=== PATIENT | female | born 1940 | race Caucasian/White ===

== ENCOUNTER → 2016-06-17 | Day surgery (SDC) | payer MEDICARE, BC ==
[~2016-06-17] MED LIST: Buffered Lidocaine 1% SYR 3ML* 3 ML/SYR SYRINGE INTRADERM ONE; Buffered Lidocaine 1% SYR 3ML* 3 ML/SYR SYRINGE ONE; Cyclopentolate 1% OPTH.SOL* 2 ML BTL ONE; Flurbiprofen 0.03% OPTH.SOL* 2.5 ML BTL ONE; Lidocaine 1% MPF* 2 ML VIAL ONE; Lidocaine 2% EPI 1:200000 MPF* 20 ML VIAL ONE; Lidocaine 2% PF * 5 ML VIAL ONE; Midazolam* 1 MG/ML 2 ML VIAL (2 MG) ONE; Neomycin/Polymy/Dex OPTH.SUSP* MAXITROL 0.1% 5 ML ONE; Phenylephrine 2.5% OPTH.SOL* 2 ML BTL ONE; Povidone Iodine 5% OPTH* 30 ML BTL ONE; Proparacaine 0.5% OPHTH.SOL* 15 ML BTL ONE; Propofol* 10 MG/ML 20 ML BTL IV PUSH ONE; acetaZOLAMIDE TAB* 250 MG ONE
[2016-06-17 12:44] VITALS: BP 172/75
--- NOTE | 2016-06-17 14:46 | OP ---
DATE OF OPERATION: 06/17/2016. DATE OF : 1940. SURGEON: Melvin Arita M.D. PREOPERATIVE DIAGNOSIS: Cataract left eye. POSTOPERATIVE DIAGNOSIS: Cataract left eye. OPERATIVE PROCEDURE: Phacoemulsification left eye with IOL. PROCEDURE: The patient was brought to the operating room after being given 1/2% Alcaine with epinep hrine drops in the preoperative area. The eye was prepped and draped in the usual sterile fashion. Sterile drape and eyelid speculum were placed. Again, topical 1/2% Alcaine with epinephrine was gi luis m. A paracentesis incision was made at the 3 o'clock position with the No.75 blade. Clear cornea incision 2.2 x 2.2-mm was created at the 6 o'clock position starting at the anterior limbus using t he 2.2-mm keratome. The anterior chamber was irrigated with 0.4 mL of 1% non-preservative intracame ral lidocaine and filled with DisCoVisc. A capsulorrhexis was completed using the cystotome and the Utrata forceps. Hydrodissection was performed with balanced salt solution. The lens nucleus was re moved with the Phacoemulsification handpiece without incident. Cortex was removed with the irrigati on-aspiration handpiece. The capsular bag was re-inflated using DisCoVisc and an SN60WF 22.5 implan t was inserted with the shooter. The irrigation-aspiration handpiece was used to remove all residua l DisCoVisc. The eye was refilled with balanced salt solution and the wound checked and found to be watertight. Topical Maxitrol drops were given. [id number]/[facility] #: [id number]
== END | disposition home or self-care (01) ==
LOC: OREAST 08:40
PROVIDERS: ATTEND Specialist
DX: H25.12 Age-related nuclear cataract, left eye (principal); H50.21 Vertical strabismus, right eye; I10 Essential (primary) hypertension; E03.9 Hypothyroidism, unspecified; E66.01 Morbid (severe) obesity due to excess calories; Z68.31 Body mass index [BMI] 31.0-31.9, adult
CPT/HCPCS: A9270-GY; J2250; J2704; V2632

== ENCOUNTER → 2016-06-24 | Day surgery (SDC) | payer MEDICARE, BC ==
[~2016-06-24] MED LIST changes: +Acetaminophen TAB* 325 MG PO PRN; -Lidocaine 2% PF * 5 ML VIAL ONE; -Propofol* 10 MG/ML 20 ML BTL IV PUSH ONE; +fentaNYL* 50 MCG/ML 2 ML VIAL (100 MCG VIAL) ONE
[2016-06-24 09:47] VITALS: BP 197/84
--- NOTE | 2016-06-24 11:00 | OP ---
OPERATIVE NOTE: DATE OF OPERATION: 06/24/16 DATE OF : [birth year] SURGEON: Melvin Arita M.D. PREOPERATIVE DIAGNOSIS: Cataract, right eye. POSTOPERATIVE DIAGNOSIS: Cataract, right eye. OPERATIVE PROCEDURE: Phacoemulsification, right eye, with IOL. DESCRIPTION OF PROCEDURE: The patient was brought to the operating room after being given 1/2% Alca ine with epinephrine drops in the preoperative area. The eye was prepped and draped in the usual st erile fashion. Sterile drape and eyelid speculum were placed. Again, topical 1/2% Alcaine with epi nephrine was given. A paracentesis incision was made at the 9 o'clock position with the No.75 blade . Clear cornea incision 2.2 x 2.2-mm was created at the 12 o'clock position starting at the anterior limbus using the 2.2-mm keratome. The anterior chamber was irrigated with 0.4 mL of 1% non-preserv ative intracameral lidocaine and filled with DisCoVisc. A capsulorrhexis was completed using the cy stotome and the Utrata forceps. Hydrodissection was performed with balanced salt solution. The thompson s nucleus was removed with the Phacoemulsification handpiece without incident. Cortex was removed wi th the irrigation-aspiration handpiece. The capsular bag was re-inflated using DisCoVisc and an SN6 0WF 23.5 implant was inserted with the shooter. The irrigation-aspiration handpiece was used to rem ove all residual DisCoVisc. The eye was refilled with balanced salt solution and the wound checked and found to be watertight. Topical Maxitrol drops were given. [id number]/[facility] #: [id number]
== END | disposition home or self-care (01) ==
LOC: OREAST 06:46
PROVIDERS: ATTEND Specialist
DX: H25.11 Age-related nuclear cataract, right eye (principal); H50.21 Vertical strabismus, right eye; I10 Essential (primary) hypertension; E03.9 Hypothyroidism, unspecified
CPT/HCPCS: A9270-GY; J2250; J3010; V2632

== ENCOUNTER 2019-02-03 10:53 | Emergency (ER) | payer MEDICARE, BC ==
--- OUTSIDE RECORDS SUMMARY | 2019-02-03 10:58 | XMS REPORT | Continuity of Care Document ---
:1940 External Reference #:[id number] Author Name Christianne Bustamante DO (transmitted by agent of provider Dorota Orr) Address [address] [place] [id number] Care Team Providers Name Role Phone Enriqueta Mas MD - Internal Medicine Care Team Information Mover Helper [phone] Abril Gongora M.D. - Family Medicine Care Team Information Mover Helper Problems Active Problems Provider Date Localized, primary osteoarthritis Lynn Toussaint M.D. Onset: 02/02/2018 Arthroplasty of knee Lynn Toussaint M.D. Onset: 02/02/2018 Localized, primary osteoarthritis of the pelvic Lynn Toussaint M.D. Onset: 11/2018 region and thigh Social History Type Date Description Comments Sex Unknown ETOH Use Occasionally consumes alcohol Tobacco Use Start: Unknown Patient has never smoked Smoking Status Reviewed: 01/10/19 Patient has never smoked Exercise Type/Frequency Exercises regularly Allergies, Adverse Reactions, Alerts Description No Known Drug Allergies Medications Active Medications SIG Qnty Indications Ordering Provider Date Losartan 1 by mouth every Unknown Potassium/Hydrochloroth day iazide 100-25mg Tablets Levothyroxine Sodium 1 by mouth every Unknown 125mcg day Tablets Acetaminophen 2 tablets by Unknown 325mg Tablets mouth every 6 hours as needed for pain/fever Probiotic Colon Support once a day Unknown Capsules Medications Administered in Office Medication SIG Qnty Indications Ordering Provider Date Depomedrol 40MG Lynn Toussaint M.D. 12/26/2018 Injection Synvisc Or Synvisc-One Injection 1 Lynn Toussaint M.D. 11/18/2018 MG Injection Synvisc Or Synvisc-One Injection 1 Lynn Toussaint M.D. 11/11/2018 MG Injection Synvisc Or Synvisc-One Injection 1 Lynn Toussaint M.D. 11/04/2018 MG Injection Depomedrol 40MG Lynn Toussaint M.D. 09/07/2018 Injection Depomedrol 40MG Lynn Toussaint M.D. 02/02/2018 Injection Immunizations Description No Information Available Vital Signs Date Vital Result Comment 01/10/2019 11:10am BP Systolic 170 mmHg BP Diastolic 90 mmHg 01/10/2019 10:39am Height 62 inches 5'2" Weight 163.12 lb Heart Rate 82 /min BP Systolic Sitting 209 mmHg BP Diastolic Sitting 90 mmHg Body Temperature 98.4 F O2 % BldC Oximetry 98 % BMI (Body Mass Index) 29.8 kg/m2 Results Description No Information Available Procedures Date Code Description Status 12/26/201847937 Inj/Aspir Major JT Or Bursa W/ US Completed 11/18/201854847 Inject/Drain Joint/Bursa Major W/O US Completed 11/11/2018 63691 Inject/Drain Joint/Bursa Major W/O US Completed 11/04/2018 30219 Inject/Drain Joint/Bursa Major W/O US Completed 09/07/2018 08665 Inject/Drain Joint/Bursa Major W/O US Completed Medical Devices Description No Information Available Encounters Type Date Location Provider Dx Diagnosis Office Visit 01/10/2019 [facility] Christianne Bustamante, I10 Essential ( primary) 10:20a Medicine - Suite DO hypertension R E03.9 Hypothyroidism, unspecified E87.5 Hyperkalemia Office Visit 01/04/2019 9:30a [facility] Lynn Toussaint, M25.551 Pain in right Of C.[facility].A. M.D. hip M16.11 Unilateral primary osteoarthritis, right hip W19.xxxD Unspecified fall, subsequent encounter Office Visit 12/26/2018 8:45a [facility] Lynn Toussaint M25.551 Pain in right Of C.M.A. M.D. hip M16.11 Unilateral primary osteoarthritis, right hip Z96.651 Presence of right artificial knee joint W19.xxxA Unspecified fall, initial encounter Office Visit 10/12/2018 9:15a [facility] Lynn Norbert, M25.562 Pain in left Of C.M.A. M.DNegrito knee M25.462 Effusion, left knee M17.12 Unilateral primary osteoarthritis, left knee Assessments Date Code Description Provider 01/10/2019 I10 Essential (primary) hypertension Christianne Bustamante, DO 01/10/2019 E03.9 Hypothyroidism, unspecified Christianne Senner, DO 01/10/2019 E87.5 Hyperkalemia Christianne Dianna, DO 01/04/2019 M25.551 Pain in right hip Lynn Toussaint M.D. 01/04/2019 M16.11 Unilateral primary osteoarthritis, right hip Lynn Toussaint M.D. 01/04/2019 W19.xxxD Unspecified fall, subsequent encounter Lynn Toussaint M.D. 12/26/2018 M25.551 Pain in right hip Lynn Toussaint M.D. 12/26/2018 M16.11 Unilateral primary osteoarthritis, right hip Lynn Toussaint M.D. 12/26/2018 Z96.651 Presence of right artificial knee joint Lynn Toussaint M.D. 12/26/2018 W19.xxxA Unspecified fall, initial encounter Lynn Toussaint M.D. 11/18/2018 M25.562 Pain in left knee Lynn Toussaint M.D. 11/18/2018 M25.462 Effusion, left knee Lynn Toussaint M.D. 11/18/2018 M17.12 Unilateral primary osteoarthritis, left knee Lynn Toussaint M.D. 11/18/2018 M54.5 Low back pain Lynn Toussaint M.D. 11/11/2018 M25.562 Pain in left knee Lynn Toussaint M.D. 11/11/2018 M25.462 Effusion, left knee Lynn Toussaint M.D. 11/11/2018 M17.12 Unilateral primary osteoarthritis, left knee Lynn Toussaint M.D. 11/04/2018 M25.562 Pain in left knee Lynn Toussaint M.D. 11/04/2018 M25.462 Effusion, left knee Lynn Toussaint M.D. 11/04/2018 M17.12 Unilateral primary osteoarthritis, left knee Lynn Toussaint M.D. 10/12/2018 M25.562 Pain in left knee Lynn Toussaint M.D. 10/12/2018 M25.462 Effusion, left knee Lynn Toussaint M.D. 10/12/2018 M17.12 Unilateral primary osteoarthritis, left knee Lynn Toussaint M.D. 09/07/2018 M25.562 Pain in left knee Lynnsae Toussaint M.D. 09/07/2018 M25.462 Effusion, left knee Lynn Toussaint M.D. 09/07/2018 M17.12 Unilateral primary osteoarthritis, left knee Lynn Toussaint M.D. Plan of Treatment Future Appointment(s):01/17/2019 2:00 pm - [facility] - Abril G[facility] 7:45 am - Lynn Toussaint M.D. at [facility]02/03/2019 9:00 am - Lynn Toussaint M.D. at [facility]06/27/2019 10:00 am - Mindy Ramirez MD at [facility]12/13/2019 - Christianne Bustamante, DOI10 Essential (primary) hypertensionComments:we may need to add a new bp pillFollow up:come back in a week for a bp ipkccM08.9 Hypothyroidism, ywopzcflaajA19.5 Hyperkalemia Functional Status Description No Information Available Mental Status Description No Information Available Referrals Description No Information Available
--- OUTSIDE RECORDS SUMMARY | 2019-02-03 10:58 | XMS REPORT | Continuity of Care Document ---
:1940 External Reference #:[id number] Author Name Abril Gongora MD (transmitted by agent of provider Thuy Padilla) Address [address] [facility], [place] [address] Care Team Providers Name Role Phone Enriqueta Mas MD - Internal Medicine Care Team Information Indoor Sports Centre Manager Abril Gongora M.D. - Family Medicine Care Team Information Indoor Sports Centre Manager Problems Active Problems Provider Date Localized, primary osteoarthritis Lynn Toussaint M.D. Onset: 02/02/2018 Arthroplasty of knee Lynn Toussaint M.D. Onset: 02/02/2018 Localized, primary osteoarthritis of the pelvic Lynn Toussaint M.D. Onset: 11/2018 region and thigh Social History Type Date Description Comments Sex Unknown ETOH Use Occasionally consumes alcohol Tobacco Use Start: Unknown Patient has never smoked Smoking Status Reviewed: 01/27/19 Patient has never smoked Exercise Type/Frequency Exercises regularly Allergies, Adverse Reactions, Alerts Description No Known Drug Allergies Medications Active Medications SIG Qnty Indications Ordering Date Provider Clonidine HCL 1 by mouth 1-2x/day 14tabs I10 Abril Gongora MD 01/27/2019 0.1mg as needed for Tablets uncontrolled hypertension Losartan 1 by mouth every Unknown Potassium/Hydrochloro day thiazide 100-25mg Tablets Levothyroxine Sodium 1 by mouth every Unknown day 125mcg Tablets Acetaminophen 2 tablets by mouth Unknown 325mg every 6 hours as Tablets needed for pain/fever Probiotic Colon once a day Unknown Support Capsules Medications Administered in Office Medication SIG Qnty Indications Ordering Provider Date Depomedrol 40MG Lynn Toussaint M.D. 12/26/2018 Injection Synvisc Or Synvisc-One Injection 1 Lynn Tuossaint M.D. 11/18/2018 MG Injection Synvisc Or Synvisc-One Injection 1 Lynn Toussaint M.D. 11/11/2018 MG Injection Synvisc Or Synvisc-One Injection 1 Lynn Toussaint M.D. 11/04/2018 MG Injection Depomedrol 40MG Lynn Toussaint M.D. 09/07/2018 Injection Depomedrol 40MG Lynn Toussaint M.D. 02/02/2018 Injection Immunizations Description No Information Available Vital Signs Date Vital Result Comment 01/27/2019 10:17am Height 63 inches 5'3" Weight 168.00 lb Heart Rate 81 /min BP Systolic 170 mmHg BP Diastolic 96 mmHg Body Temperature 97.4 F O2 % BldC Oximetry 95 % BMI (Body Mass Index) 29.8 kg/m2 01/10/2019 11:10am BP Systolic 170 mmHg BP Diastolic 90 mmHg Results Test Date Facility Test Result H/L Range Note Order 01/27/2019 [facility] In-House EKG <pending> Procedures Date Code Description Status 01/27/2019 79736 EKG Tracing & Interpretation Completed 12/26/2018 52552 Inj/Aspir Major JT Or Bursa W/ US Completed 11/18/2018 95586 Inject/Drain Joint/Bursa Major W/O US Completed 11/11/2018 60924 Inject/Drain Joint/Bursa Major W/O US Completed 11/04/2018 92758 Inject/Drain Joint/Bursa Major W/O US Completed 09/07/2018 04149 Inject/Drain Joint/Bursa Major W/O US Completed Medical Devices Description No Information Available Encounters Type Date Location Provider Dx Diagnosis Office Visit 01/10/2019 [facility] Christianne Bustamante, I10 Essential ( primary) 10:20a Medicine - Suite DO hypertension R E03.9 Hypothyroidism, unspecified E87.5 Hyperkalemia Office Visit 01/04/2019 9:30a [facility] Lynn Toussaint M25.551 Pain in right Of C.M.A. M.D. hip M16.11 Unilateral primary osteoarthritis, right hip W19.xxxD Unspecified fall, subsequent encounter Office Visit 12/26/2018 8:45a [facility] Lynn Norbert, M25.551 Pain in right Of C.M.A. M.D. hip M16.11 Unilateral primary osteoarthritis, right hip Z96.651 Presence of right artificial knee joint W19.xxxA Unspecified fall, initial encounter Office Visit 10/12/2018 9:15a [facility] Lynn Toussaint, M25.562 Pain in left Of C.M.A. M.D. knee M25.462 Effusion, left knee M17.12 Unilateral primary osteoarthritis, left knee Assessments Date Code Description Provider 01/27/2019 Z01.818 Encounter for other preprocedural examination Abril Gongora MD 01/27/2019 M17.12 Unilateral primary osteoarthritis, left knee Abril Gongora MD 01/27/2019 I10 Essential (primary) hypertension Abril Gongora MD 01/10/2019 I10 Essential (primary) hypertension Christianne Bustamante, DO 01/10/2019 E03.9 Hypothyroidism, unspecified Christianne Bustamante, DO 01/10/2019 E87.5 Hyperkalemia Christianne Bustamante, DO 01/04/2019 M25.551 Pain in right hip [...] M.D. 11/18/2018 M54.5 Low back pain Lynn Norbert, M.D. 11/11/2018 M25.562 Pain in left knee Lynn Norbert, M.D. 11/11/2018 M25.462 Effusion, left knee Lynn Norbert, M.D. 11/11/2018 M17.12 Unilateral primary osteoarthritis, left knee Lynn Norbert , M.D. 11/04/2018 M25.562 Pain in left knee Lynn Norbert, M.D. 11/04/2018 M25.462 Effusion, left knee Lynn Norbert, M.D. 11/04/2018 M17.12 Unilateral primary osteoarthritis, left knee Lynn Norbert , M.D. 10/12/2018 M25.562 Pain in left knee Lynn Norbert, M.D. 10/12/2018 M25.462 Effusion, left knee Lynn Norbert, M.D. 10/12/2018 M17.12 Unilateral primary osteoarthritis, left knee Lynn Norbert , M.D. 09/07/2018 M25.562 Pain in left knee Lynn Norbert, M.D. 09/07/2018 M25.462 Effusion, left knee Lynn Norbert, M.D. 09/07/2018 M17.12 Unilateral primary osteoarthritis, left knee Lynn Norbert , M.D. Plan of Treatment Future Appointment(s):02/03/2019 11:00 am - Nurse Visit A at [facility] - [facility]02/09/2019 7:45 am - PREETHI Rush at [facility]02/09/2019 7:45 am - Edmund Zepeda PA-C at [facility]02/09/2019 7:45 am - Lynn Toussaint M.D. at [facility]02/03/2019 9:00 am - Lynn Toussaint M.D. at [facility]06/27/2019 10:00 am - Mindy Ramirez MD at [facility] Dtkeunthlpm88/30/2019 - Abril Gongora MDZ01.818 Encounter for other preprocedural frxaduiavdzR30.12 Unilateral primary osteoarthritis, left kneeI10 Essential (primary) hypertensionNew Medication:Clonidine HCL 0.1 mg - 1 by mouth 1-2x/day as needed for uncontrolled hypertensionComments:please take the clonidine next week when you return for a nurse visit to check on your blood pressureFollow up:nurse visit 1 week Functional Status Description No Information Available Mental Status Description No Information Available Referrals Description No Information Available
== END 2019-02-03 11:35 | disposition left against medical advice (07) ==
LOC: UCEAST 10:53
DX: R03.0 Elevated blood-pressure reading, without diagnosis of hypertension (principal); Z53.21 Procedure and treatment not carried out due to patient leaving prior to being seen by health care provider

== ENCOUNTER 2019-02-09 07:30 | Inpatient (IN) | payer MEDICARE, BC ==
--- NOTE | 2019-02-05 17:41 | HP ---
PREOPERATIVE HISTORY AND PHYSICAL: DATE OF ADMISSION: 02/09/19 DATE OF SURGERY: 02/09/19 SURGEON: Dr. Lynn Toussaint.* (DICTATED BY MARY JO PIEDRA) PROCEDURE: Left total knee replacement. CHIEF COMPLAINT: Left knee pain. HISTORY OF PRESENT ILLNESS: Ms. Gomez is a 78-year-old female with years of left knee pain that has become progressively debilitating. She has 6/10 pain with swelling which has increased from walking more than a block. She has increased pain and swelling with climbing stairs or with prolonged ambulation and has undergone conservative treatment but failed with only short-term relief. She is seeking surgical intervention with Dr. Toussaint. PAST MEDICAL HISTORY: 1. Hypertension. 2. Hypothyroidism. 3. Diverticulitis. 4. Hypercholesterolemia. 5. Osteoarthritis. 6. No DVT. 7. No pulmonary embolism. PAST SURGICAL HISTORY: Right total knee arthroplasty in 2011. She denies anesthetic complication with that procedure. CURRENT MEDICATIONS: 1. Losartan potassium/hydrochlorothiazide 100/25 mg 1 tab by mouth daily. 2. Levothyroxine sodium 125 mcg 1 tab by mouth daily. 3. Aleve 220 mg 1 to 2 tabs by mouth twice daily as needed for pain. 4. Ibuprofen 200 mg, 400-600 mg every 6 hours as needed for pain. 5. Acetaminophen 325 mg 2 tabs by mouth every 6 hours as needed for pain or fever. 6. Probiotic Colon Support 1 capsule daily. ALLERGIES: None. FAMILY HISTORY: Positive for heart disease but no diabetes or cancer. 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 She has friends and siblings that will be helping care for her postoperatively. She denies tobacco or recreational drug use and consumes rare alcohol. She tries to be active. REVIEW OF SYSTEMS: A 14-point review of systems was performed and are positive for left knee pain, seasonal allergies with some decreased hearing, otherwise all systems are negative. PHYSICAL EXAMINATION GENERAL: She is a well-developed, well-nourished female, seated on exam table, in no acute distress with appropriate affect. VITAL SIGNS: Height 63 inches, weight 166. Pulse 74, blood pressure 148/94, respirations 16. HEENT: Normocephalic, atraumatic. Hearing and vision are grossly intact. Extraocular movements intact. NECK: The trachea is midline and symmetrical. CHEST: Lungs are clear to auscultation. No wheezes, rales, or rhonchi appreciated. CARDIO: Regular rate and rhythm. Normal S1, S2. No murmurs, rubs, or gallops noted. ABDOMEN: Nondistended. Bowel sounds present. GENITOURINARY: Deferred. MUSCULOSKELETAL: Left lower extremity: Skin is pink, dry, and intact without abrasions or open wounds. There is a moderate effusion at the knee with tenderness along the medial joint line. She extends to 5 degrees and flexes to 120 with patellofemoral crepitus and pain. No varus or valgus instability. 5/ 5 strength against resistance in 4 planes in the left ankle with intact sensation and 2+ dorsalis pedis pulse. IMPRESSION: Left knee end-stage osteoarthritis. PLAN: Left total knee replacement with Dr. Toussaint. The patient's questions were answered and she would like to proceed. Dr. Toussaint discussed the risks and benefits of the surgery at today's visit. The patient will follow up postoperatively. MARY JO PIEDRA [id number]/[facility] #: [id number] SABINE
--- NOTE | 2019-04-20 16:54 | HP ---
HISTORY AND PHYSICAL: DATE OF ADMISSION/SURGERY: 05/05/19 DATE OF OFFICE VISIT: 04/19/19 SURGEON: Lynn Toussaint MD * (DICTATED BY MARY JO FAYE) PROCEDURE: Left total knee arthroplasty. CHIEF COMPLAINT: Left knee pain. HISTORY OF PRESENT ILLNESS: Ms. Gomez is a 78-year-old female with severe left knee pain. She has failed conservative treatment and elected to proceed with a left total knee arthroplasty. PAST MEDICAL HISTORY: 1. Hypothyroidism. 2. Hypertension. 3. Chronic hyponatremia. PAST SURGICAL HISTORY: 1. Right total knee arthroplasty. 2. Tonsillectomy. 3. Right eye surgery. CURRENT MEDICATIONS: 1. Amlodipine 10 mg a day. 2. Ultracet every 8 hours as needed. 3. Irbesartan 150 mg a day. 4. Levothyroxine 125 mcg a day. 5. Probiotic. 6. Sodium chloride 1 g twice a day. ALLERGIES: No known drug allergies. FAMILY HISTORY: Coronary artery disease and stroke. SOCIAL HISTORY: She is a 78-year-old female. She lives lone. She does not smoke or use drugs. REVIEW OF SYSTEMS: A complete 14-point review of systems was reviewed with the patient. Positive for hypothyroidism. She denies history of DVT, PE, hepatitis C, HIV, or anesthesia problems. PHYSICAL EXAMINATION GENERAL: She is well developed, well nourished, in no acute distress. VITAL SIGNS: She stands 63 inches tall, weighs 167 pounds, blood pressure is 138/84, heart rate 75. HEENT: Normocephalic, atraumatic. NECK: Supple. No palpable lymph nodes. PULMONARY: Lungs are clear to auscultation bilaterally. CARDIO: Regular rate and rhythm. Strong S1 and S2. ABDOMEN: Soft, nontender, nondistended. NEUROLOGICAL: She is alert and oriented x3. MUSCULOSKELETAL: Left lower extremity: Skin is intact. There are no open wounds or abrasions. She has moderate effusion of the left knee joint. Tenderness over the medial and lateral joint line. She walks with antalgic type gait favoring her left knee. She has 2+ dorsalis pedis pulses. She is able to dorsiflex and plantarflex. She has intact sensation. ASSESSMENT AND PLAN: Ms. Gomez is a 78-year-old female with severe end-stage osteoarthritis of the left knee. She has failed conservative treatment and elected to proceed with the left total knee arthroplasty. The surgery is scheduled for 05/05/[address] Toussaint discussed the risks and benefits of the surgery at today's visit and all of her questions were answered. She will follow up with Dr. Toussaint in 2 weeks after the surgery. MARY JO FAYE [id number]/[facility] #: [id number] [place]
[2019-05-04] MEDS ORDERED: Buffered Lidocaine 1% SYRIN* 1 ML/SYRINGE INTRADERM ONE (17:34)
[2019-05-05] MEDS ORDERED: Tranexamic Acid 1,000 MG in NS 0.9% 50 ML* (outpatient use) IV SCH ×2
[2019-05-05] MEDS ORDERED: celeCOXIB CAP* 200 MG PO ONE (06:00)
[2019-05-05] MEDS ORDERED: Famotidine IV* 10 MG/ML 2 ML (20 mg) IV ONE (06:00)
[2019-05-05] MEDS ORDERED: Lactated Ringers 1000 ML Bag* 1,000 ML IV SCH ×2 (06:00→12:00)
[2019-05-05] MEDS ORDERED: Gabapentin CAP(*) 100 MG PO ONE (06:00)
[2019-05-05] MEDS ORDERED: Dexamethasone IV* 4 MG/ML 1 ML (4 MG) IV SLOW PU ONE (06:00)
--- OUTSIDE RECORDS SUMMARY | 2019-05-05 06:15 | XMS REPORT | Continuity of Care Document ---
:1940 External Reference #:[id number] Author Name Lynn Toussaint M.D. (transmitted by agent of provider Becky Pina) Address [address] [facility] [place] [address] Care Team Providers Name Role Phone Enriqueta Mas MD - Internal Medicine Care Team Information Senior Informatica Developer [phone] Abril Gongora M.D. - Family Medicine Care Team Information Senior Informatica Developer Problems Active Problems Provider Date Localized, primary osteoarthritis Lynn Toussaint M.D. Onset: 02/02/2018 Arthroplasty of knee Lynn Toussaint M.D. Onset: 02/02/2018 Localized, primary osteoarthritis of the pelvic Lynn Toussaint M.D. Onset: 11/2018 region and thigh Social History Type Date Description Comments Sex Unknown ETOH Use Occasionally consumes alcohol Tobacco Use Start: Unknown Patient has never smoked Smoking Status Reviewed: 04/19/19 Patient has never smoked Exercise Type/Frequency Exercises regularly Allergies, Adverse Reactions, Alerts Description No Known Drug Allergies Medications Active Medications SIG Qnty Indications Ordering Date Provider Amlodipine Besylate 1 by mouth every 90tabs I10 Jeanine Wells, 04/10/2019 10mg day M.D. Tablets Ultracet 1 tab every 8 30tabs Jeanine Wells, 04/10/2019 37.5-325mg hours as needed M.D. Tablets for pain Irbesartan 1 by mouth every 90tabs I10 Jeanine Wells, 02/24/2019 150mg Tablets day M.D. Levothyroxine Sodium 1 by mouth every 90tabs Abril Gongora MD day before 125mcg Tablets breakfast Probiotic Colon once a day Unknown Support Capsules Sodium Chloride take one tab by Unknown 1gm mouth twice a Tablets day, with food. History Medications Amlodipine Besylate 1 by mouth every day 30tabs I10 Abril Gongora MD 2018 - 02/17/2019 10mg Tablets Clonidine HCL 1 by mouth 1-2x/day 14tabs I10 Abril Gongora MD 01/27/2019 - 0.1mg as needed for 02/13/2019 Tablets uncontrolled hypertension Medications Administered in Office [...] Injection Immunizations CPT Code Status Date Vaccine Reaction Lot # [id number] Given 04/10/2019 Tdap - adminstered to left [id number] Tetanus/Diptheria/Acellul deltoid, well tolerated, no ar Pertussis remarkable notings, bandaid applied [id number] Given 01/27/2019 Influ Virus Vaccine, Quadrivalent, Split Virus, Im Fluzone not PF Vital Signs Date Vital Result Comment 04/19/2019 10:14am Height 63 inches 5'3" Weight 167.00 lb Heart Rate 75 /min BP Systolic 138 mmHg BP Diastolic 84 mmHg Respiratory Rate 16 /min Body Temperature 98.2 F Pain Level 6 BMI (Body Mass Index) 29.6 kg/m2 04/17/2019 11:13am Weight 68.00 lb BP Systolic Sitting 148 mmHg Rue reg cuff BP Diastolic Sitting 70 mmHg Rue reg cuff BP Systolic Recheck 118 mmHg Rue reg cuff BP Diastolic Recheck 66 mmHg Rue reg cuff O2 % BldC Oximetry 96 % Results Test Acquired Date Facility Test Result H/L Range Note Basic Metabolic 04/11/2019 [facility] Sodium 135 mmol/L Normal 135-[address] [place] [address] [phone] Potassium 4.9 mmol/L Normal 3.5-5.0 Chloride 101 mmol/L Normal 101-111 Co2 Carbon Dioxide 26 mmol/L Normal 22-32 Anion Gap 8 mmol/L Normal 2-11 Glucose 90 mg/dL Normal 70-100 Blood Urea Nitrogen 27 mg/dL High 6-24 Creatinine 0.93 mg/dL Normal 0.51-0.95 BUN/Creatinine Ratio 29.0 High 8-20 Calcium 9.6 mg/dL Normal 8.6-10.3 Egfr Non- 58.2 >60 Egfr 70.4 >60 1 Basic Metabolic 04/05/2019 [facility] Sodium 134 mmol/L Low 135-145 Panel [address] [place] [address] [phone] Potassium 4.9 mmol/L Normal 3.5-5.0 Chloride 102 mmol/L Normal 101-111 Co2 Carbon Dioxide 25 mmol/L Normal 22-32 Anion Gap 7 mmol/L Normal 2-11 Glucose 83 mg/dL Normal 70-100 Blood Urea Nitrogen 29 mg/dL High 6-24 Creatinine 0.99 mg/dL High 0.51-0.95 BUN/Creatinine Ratio 29.3 High 8-20 Calcium 9.3 mg/dL Normal 8.6-10.3 Egfr Non- 54.1 >60 Egfr 65.5 >60 2 Basic Metabolic 03/01/2019 [facility] Sodium 132 mmol/L Low 135-145 Panel [address] [place] [address] [phone] Potassium 4.2 mmol/L Normal 3.5-5.0 Chloride 98 mmol/L Low 101-111 Co2 Carbon Dioxide 27 mmol/L Normal 22-32 Anion Gap 7 mmol/L Normal 2-11 Glucose 97 mg/dL Normal 70-100 Blood Urea Nitrogen 27 mg/dL High 6-24 Creatinine 1.05 mg/dL High 0.51-0.95 BUN/Creatinine Ratio 25.7 High 8-20 Calcium 9.1 mg/dL Normal 8.6-10.3 Egfr Non- 50.6 >60 Egfr 61.2 >60 3 Basic Metabolic 02/24/2019 [facility] Sodium 126 mmol/L Low 135-145 Panel [address] [place] [address] [phone] Potassium 5.0 mmol/L Normal 3.5-5.0 Chloride 92 mmol/L Low 101-111 Co2 Carbon Dioxide 26 mmol/L Normal 22-32 Anion Gap 8 mmol/L Normal 2-11 Glucose 103 mg/dL High 70-100 Blood Urea Nitrogen 22 mg/dL Normal 6-24 Creatinine 0.73 mg/dL Normal 0.51-0.95 BUN/Creatinine Ratio 30.1 High 8-20 Calcium 9.3 mg/dL Normal 8.6-10.3 Egfr Non- 76.9 >60 Egfr 93.1 >60 4 Urinalysis Profile 02/14/2019 [facility] Urine Color Yellow [address] [place] [address] [phone] Urine Appearance Cloudy Urine Specific [place] 1.013 Normal 1.010-1.030 Urine pH 7.0 Normal 5-9 Urine Urobilinogen Negative Negative Urine Ketones 1+ Abnormal Negative Urine Protein Negative Negative Urine Leukocytes 3+ Abnormal Negative Urine Blood 1+ Abnormal Negative Urine Nitrite Negative Negative Urine Bilirubin Negative Negative Urine Glucose Negative Negative Urine White Blood Cell 3+(>20/hpf) Abnormal Absent Urine Red Blood Cell 1+(3-5/hpf) Abnormal Absent Urine Bacteria 1+ Abnormal Absent Urine Squamous Epithelial Cell Present Abnormal Absent Electrolytes Random 02/14/2019 [facility] Urine Sodium 90 mmol/ L Urine [address] [place] [address] [phone] Urine Potassium Concentration 69.7 mmol/L Urine Chloride Concentration 109 mmol/L Laboratory test 02/14/2019 [facility] Osmolality 474 Normal 100-[address] Urine mOsm/[place] [address] [phone] Urine Culture 02/14/2019 [facility] Urine Culture SEE RESULT [address] [place] [address] [phone] CBC Auto Diff 02/13/2019 [facility] White Blood 7.9 Normal 3.5 -10.[address] Count 10^3/[place] [address] [phone] Red Blood Count 3.89 10^6/uL Normal 3.70-4.87 Hemoglobin 12.3 g/dL Normal 12.0-16.0 Hematocrit 35 % Normal 35-47 Mean Corpuscular Volume 91 fL Normal 80-97 Mean Corpuscular Hemoglobin 32 pg High 27-31 Mean Corpuscular HGB Conc 35 g/dL Normal 31-36 Red Cell Distribution Width 14 % Normal 10-15 Platelet Count 331 10^3/uL Normal 150-450 Mean Platelet Volume 7.2 fL Low 7.4-10.4 Abs Neutrophils 3.9 10^3/uL Normal 1.5-7.7 Abs Lymphocytes 2.8 10^3/uL Normal 1.0-4.8 Abs Monocytes 1.0 10^3/uL High 0-0.8 Abs Eosinophils 0.1 10^3/uL Normal 0-0.6 Abs Basophils 0.1 10^3/uL Normal 0-0.2 Abs Nucleated RBC 0.0 10^3/uL Granulocyte % 50.1 % Lymphocyte % 35.8 % Monocyte % 12.4 % Eosinophil % 0.9 % Basophil % 0.8 % Nucleated Red Blood Cells % 0.1 Basic Metabolic 02/13/2019 [facility] Potassium 4.0 mmol/L Normal 3.5-5.[address] [place] [address] [phone] Chloride 83 mmol/L Low 101-111 Co2 Carbon Dioxide 27 mmol/L Normal 22-32 Glucose 112 mg/dL High 70-100 Blood Urea Nitrogen 17 mg/dL Normal 6-24 Creatinine 0.80 mg/dL Normal 0.51-0.95 BUN/Creatinine Ratio 21.3 High 8-20 Calcium 9.6 mg/dL Normal 8.6-10.3 Egfr Non- 69.2 >60 Egfr 83.7 >60 6 Sodium 118 mmol/L Critical low 135-145 7 Anion Gap 8 mmol/L Normal 2-11 Laboratory 02/13/2019 [facility] Osmolality 262 mOsm/kg Low 275-295 test finding [address] [place] [address] [phone] Basic 02/13/2019 [facility] Potassium 4.5 mmol/L Normal 3.5- 5.0 [address] [place] [address] [phone] Chloride 82 mmol/L Low 101-111 Co2 Carbon Dioxide 27 mmol/L Normal 22-32 Glucose 95 mg/dL Normal 70-100 Blood Urea Nitrogen 16 mg/dL Normal 6-24 Creatinine 0.76 mg/dL Normal 0.51-0.95 BUN/Creatinine Ratio 21.1 High 8-20 Calcium 9.1 mg/dL Normal 8.6-10.3 Egfr Non- 73.4 >60 Egfr 88.8 >60 9 Sodium 117 mmol/L Critical low 135-145 10 Anion Gap 8 mmol/L Normal 2-11 Laboratory test 02/13/2019 [facility] Sodium Random 61 mmol/L finding [address] [place] [address] [phone] Urine Culture And 02/07/2019 [facility] Urine Culture SEE RESULT [address] [place] [address] [phone] Type & Screen 02/07/2019 [facility] Patient Blood A Positive [address] [place] [address] [phone] Antibody Screen NEGATIVE Comp Metabolic Panel 02/07/2019 [facility] Sodium 122 mmol/L Low 135-[address] [place] [address] [phone] Potassium 4.4 mmol/L Normal 3.5-5.0 Chloride 88 [...] Egfr Non- 72.3 >60 Egfr 87.5 >60 12 Urinalysis Profile 02/07/2019 [facility] Urine Color Yellow [address] [place] [address] [phone] Urine Appearance Cloudy Urine Specific [place] 1.017 Normal 1.010-1.030 Urine pH 6.0 Normal [...] Urine Squamous Epithelial Cell Present Abnormal Absent Laboratory 01/28/2019 [facility] TSH (Thyroid 1.18 Normal 0.34 -5.60 test finding [address] Stim Horm) mcIU/[place] [address] [phone] Lipid Profile 01/28/2019 [facility] Triglycerides 93 mg/dL 13 (Trig/Chol/HD [address] L) [place] [address] [phone] Cholesterol 239 mg/dL 14 HDL Cholesterol 57.3 mg/dL 15 LDL Cholesterol 163 mg/dL 16 Laboratory test 01/28/2019 [facility] Hemoglobin A1c 5.8 % High 4.0-5.6 [address] (Glyco HGB) [place] [address] [phone] Basic Metabolic 01/28/2019 [facility] Sodium 131 Low 135-[address] mmol/[place] [address] [phone] Potassium 4.7 mmol/L Normal 3.5-5.0 Chloride 95 mmol/L Low 101-111 Co2 Carbon Dioxide 27 mmol/L Normal 22-32 Anion Gap 9 mmol/L Normal 2-11 Glucose 92 mg/dL Normal 70-100 Blood Urea Nitrogen 22 mg/dL Normal 6-24 Creatinine 0.74 mg/dL Normal 0.51-0.95 BUN/Creatinine Ratio 29.7 High 8-20 Calcium 9.7 mg/dL Normal 8.6-10.3 Egfr Non- 75.7 >60 Egfr 91.6 >60 18 CBC Auto 01/28/2019 [facility] White Blood 7.8 10^3/uL Normal 3.5-10.[address] [place] [address] [phone] Red Blood Count 3.61 10^6/uL Low 3.70-4.87 [...] Red Blood Cells % 0.0 Inr/Protime 01/28/2019 [facility] Inr 0.94 Normal 0.82-1.[address] [place] [address] [phone] Laboratory test 01/28/2019 [facility] Partial 28.7 Normal 26.0 -38.[address] [place] [address] Time PTT [phone] Order 01/27/2019 [employer] In-House EKG <pending> 1 Because ethnic data [...] 5 Kidney failure <15 (or dialysis) 2 Because ethnic data is not always readily [...] 15-29 5 Kidney failure <15 (or dialysis) 3 Because ethnic data is not always readily [...] 15-29 5 Kidney failure <15 (or dialysis) 4 Because ethnic data is not always readily [...] 15-29 5 Kidney failure <15 (or dialysis) 5 SEE RESULT BELOW Name: DHARMESH GOMEZ : [address]: Zara Thomson MD Acct: [id number] Unit: [id number] AGE: 78 Location: [place] [address] Re02/14/19 SEX: F Status: ADM Gregg SPEC: [id number] [place]: 02/14/19 [facility] DR: Javier Adames MD REQ: [id number] RECD: 02/14/19 STATUS: TAYLOR MONTEMAYOR DR: Abril Gayle MD _ SOURCE: URINE SPDESC: ORDERED: Urine Culture Procedure Result Reported Site Urine Culture Final 02/15/19- 57 ML No Growth (<1,000 CFU/mL) * ML - Main Lab . END OF REPORT DEPARTMENT OF PATHOLOGY, [address] [place] [address] Cong Willis M.D. Director [facility] # [id number] 6 Because ethnic data is not always [...] 5 Kidney failure <15 (or dialysis) 7 Critical Result NA:118 Called to [id number] at: 00:20:10 by:[id number] Read back by:[id number] 8 pt was notified and sent to ER 9 Because ethnic data is not always readily [...] 15-29 5 Kidney failure <15 (or dialysis) 10 Critical Result NA:[address] PARIKH at: 21:21:37 by:[id number] Read back by:DR PARIKH 11 SEE RESULT BELOW Name: DHARMESH GOMEZ : [address]: Lynn Toussaint MD Acct: [id number] Unit: [id number] AGE: 78 Location: [facility] Re02/07/19 SEX: F Status: REG REF SPEC: [id number] [place]: 02/07/[address]: Lynn Toussaint MD REQ: [id number] RECD: 02/07/19 STATUS: COMP _ SOURCE: URINE SPDESC: ORDERED: Urine Culture QUERIES: Urine Source: Clean Catch Procedure Result Reported Site Urine Culture Final 02/08/19- 1249 ML No Growth (<1,000 CFU/mL) * ML - Main Lab . END OF REPORT DEPARTMENT OF PATHOLOGY, [address] [place] [address] Cong Willis M.D. Director [facility] # [id number] 12 Because ethnic data is not always readily [...] 15-29 5 Kidney failure <15 (or dialysis) 13 Desirable: <150 Borderline High: 150-199 High: 200-499 Very High: >500 14 Desirable: <200 Borderline High: 200-239 High: >239 15 Low: <40 Desirable: 40-60 High: >60 16 Desirable: <100 Near Optimal: 100-129 Borderline High: 130-159 High: 160-189 Very High: >189 17 Therapeutic target for the treatment of diabetes mellitus patients is <7% HBA1C, and in selective patients <6.0%. Please refer to [employer] diabetic care guidelines for further information. 18 Because ethnic data is not always readily [...] 15-29 5 Kidney failure <15 (or dialysis) 19 Standard intensity warfarin therapeutic range: 2.0-3.0 High intensity warfarin therapeutic range: 2.5-3.5 Procedures Date Code Description Status 04/19/2019 Inj/Aspir Major JT Or Bursa W/ US Completed 04/10/2019 86113 EKG Tracing & Interpretation Completed 01/27/2019 52318 EKG Tracing & Interpretation Completed 12/26/201894840 Inj/Aspir Major JT Or Bursa W/ US Completed 11/18/201866092 Inject/Drain Joint/Bursa Major W/O US Completed 11/11/2018 Inject/Drain Joint/Bursa Major W/O US Completed 11/04/2018 Inject/Drain Joint/Bursa Major W/O US Completed Medical Devices Description No Information Available Encounters Type Date Location Provider Dx Diagnosis Office Visit 03/01/2019 [employer] Internal Abril Gongora MD E87.1 Hypo- osmolality and 2:00p Medicine - [facility] hyponatremia I10 Essential (primary) hypertension Office Visit 02/24/2019 1:40p [facility] Internal Abril Gongora, E87.1 Hypo- osmolality and Medicine - MD hyponatremia Ccmob I10 Essential (primary) hypertension Office 02/17/2019 [facility] E87.1 Hypo-osmolality and Visit 9:31a Assoc,candace Bella, MARY JO hyponatremia Hospitalists R82.71 Bacteriuria I10 Essential (primary) hypertension Office Visit 02/16/2019 9:30a [facility] R82.71 Bacteriuria Assoc,candace Bella, [place] Hospitalists E87.1 Hypo-osmolality and hyponatremia I10 Essential (primary) hypertension Office Visit 02/15/2019 9:30a [facility] R82.71 Bacteriuria Assoc,candace Bella, MARY JO Hospitalists E87.1 Hypo-osmolality and hyponatremia I10 Essential (primary) hypertension Office Visit 02/14/2019 [facility] E87.1 Hypo-osmolality and 9:29a Assalexis,candace Farrar M.D. hyponatremia Hospitalists I10 Essential (primary) hypertension R82.71 Bacteriuria Office Visit 02/13/2019 3:00p [facility] Internal Abril Gongora, E87.1 Hypo- osmolality and Medicine - MD hyponatremia Ccmob I10 Essential (primary) hypertension Office Visit 01/27/2019 10:00a [facility] Internal Abril Gongora, Z01.818 Encounter for other Medicine - MD preprocedural Ccmob examination M17.12 Unilateral primary osteoarthritis, left knee I10 Essential (primary) hypertension Office Visit 01/10/2019 10:20a [facility] Internal Christianne Bustamante, I10 Essential (primary) Medicine - Suite DO hypertension R E03.9 Hypothyroidism, unspecified E87.5 Hyperkalemia Office Visit 01/04/2019 9:30a [facility] Lynn Toussaint, M25.551 Pain in right at [place] M.D. hip M16.11 Unilateral primary osteoarthritis, right hip W19.xxxD Unspecified fall, subsequent encounter Office Visit 12/26/2018 8:45a [facility] Lynn Toussaint, M25.551 Pain in right at [place] M.D. hip M16.11 Unilateral primary osteoarthritis, right hip Z96.651 Presence of right artificial knee joint W19.xxxA Unspecified fall, initial encounter Assessments Date Code Description Provider 04/19/2019 M17.12 Unilateral primary osteoarthritis, left Lynn Toussaint M.D. knee 04/19/2019 M25.562 Pain in left knee Lynn Toussaint M.D. 04/19/2019 M25.551 Pain in right hip Lynn Toussaint M.D. 04/10/2019 Z01.818 Encounter for other preprocedural Jeanine Wells M.D. examination 04/10/2019 M17.12 Unilateral primary osteoarthritis, left Jeanine Wells M.D. knee 04/10/2019 I10 Essential (primary) hypertension Jeanine Wells M.D. 04/10/2019 E03.9 Hypothyroidism, unspecified Jeanine Wells M.D. 04/10/2019 E87.1 Hypo-osmolality and hyponatremia Jeanine Wells M.D. 04/10/2019 Z23 Encounter for immunization Jeanine Wells M.D. 03/01/2019 E87.1 Hypo-osmolality and hyponatremia Abril Gongora MD 03/01/2019 I10 Essential (primary) hypertension Abril Gongora MD 02/24/2019 E87.1 Hypo-osmolality and hyponatremia Abril Gongora MD 02/24/2019 I10 Essential (primary) hypertension Abril Gongora MD 02/17/2019 E87.1 Hypo-osmolality and hyponatremia MARY JO [place] 02/17/2019 R82.71 Bacteriuria MARY JO [place] 02/17/2019 I10 Essential (primary) hypertension MARY JO [place] 02/16/2019 R82.71 Bacteriuria MARY JO [place] 02/16/2019 E87.1 Hypo-osmolality and hyponatremia MARY JO [place] 02/16/2019 I10 Essential (primary) hypertension MARY JO [place] 02/15/2019 R82.71 BacteriMARY JO Bis[place] 02/15/2019 E87.1 Hypo-osmolality and hyponatremia MARY JO [place] 02/15/2019 I10 Essential (primary) hypertension MARY JO [place] 02/14/2019 E87.1 Hypo-osmolality and hyponatremia Georgina Farrar M.D. 02/14/2019 I10 Essential (primary) hypertension Georgina Farrar M.D. 02/14/2019 R82.71 Bacteriuria Georgina Farrar M.D. 02/13/2019 E87.1 Hypo-osmolality and hyponatremia Abril Gongora MD 02/13/2019 I10 Essential (primary) hypertension Abril Gongora MD 02/03/2019 M25.562 Pain in left knee Lynn Toussaint M.D. 01/27/2019 I10 Essential (primary) hypertension Zara Camp MD 01/27/2019 Z01.818 Encounter for other preprocedural Abril Gongora MD examination 01/27/2019 M17.12 Unilateral primary osteoarthritis, left Abril Gongora MD knee 01/27/2019 I10 Essential (primary) hypertension Abril Gongora MD 01/10/2019 I10 Essential (primary) hypertension Christianne Bustamante, DO 01/10/2019 E03.9 Hypothyroidism, unspecified Christianne Bustamante, DO 01/10/2019 E87.5 Hyperkalemia Christianne Bustamante, DO 01/04/2019 M25.551 Pain in right hip Lynn Toussaint M.D. 01/04/2019 M16.11 Unilateral primary osteoarthritis, right Lynn Toussaint M.D. hip 01/04/2019 W19.xxxD Unspecified fall, subsequent encounter Lynn Toussaint M.D. 12/26/2018 M25.551 Pain in right hip Lynn Toussaint M.D. 12/26/2018 M16.11 Unilateral primary osteoarthritis, right Lynn Toussaint M.D. hip 12/26/2018 Z96.651 Presence of right artificial knee joint Lynn Toussaint M.D. 12/26/2018 W19.xxxA Unspecified fall, initial encounter Lynn Toussaint M.D. 11/18/2018 M25.562 Pain in left knee Lynn Toussaint M.D. 11/18/2018 M25.462 Effusion, left knee Lynn Toussaint M.D. 11/18/2018 M17.12 Unilateral primary osteoarthritis, left Lynn Toussaint M.D. knee 11/18/2018 M54.5 Low back pain Lynn Toussaint M.D. 11/11/2018 M25.562 Pain in left knee Lynn Toussaint M.D. 11/11/2018 M25.462 Effusion, left knee Lynn Toussaint M.D. 11/11/2018 M17.12 Unilateral primary osteoarthritis, left Lynn Toussaint M.D. knee 11/04/2018 M25.562 Pain in left knee Lynn Toussaint M.D. 11/04/2018 M25.462 Effusion, left knee Lynn Toussaint M.D. 11/04/2018 M17.12 Unilateral primary osteoarthritis, left Lynn Toussaint M.D. knee Plan of Treatment Future Appointment(s):05/17/2019 3:30 pm - Lynn Toussaint M.D. at [facility]05/05/2019 10:30 am - Lynn Toussaint M.D. at [facility]/27/2019 10:00 am - Mindy Ramirez MD at [facility]04/19/2019 - Lynn Toussaint M.D.M17.12 Unilateral primary osteoarthritis, left kneeFollow up:Follow up: 2 weeks after [id number] Pain in left kneeM25.551 Pain in right hipFollow up:Follow up: Functional Status Description No Information Available Mental Status Description No Information Available Referrals Description No Information Available
--- OUTSIDE RECORDS SUMMARY | 2019-05-05 06:15 | XMS REPORT | Continuity of Care Document ---
:1940 External Reference #:[id number] Author Name Jeanine Welsl M.D. (transmitted by agent of provider Harriet Mckinney) Address [address] [facility], [place] [address] Care Team Providers Name Role Phone Enriqueta Mas MD - Internal Medicine Care Team Information Superintendent Custodian Janitor [phone] Abril Gongora M.D. - Family Medicine Care Team Information Superintendent Custodian Janitor [phone] Problems Active Problems Provider Date Localized, primary osteoarthritis Lynn Toussaint M.D. Onset: 02/02/2018 Arthroplasty of knee Lynn Toussaint M.D. Onset: 02/02/2018 Localized, primary osteoarthritis of the pelvic Lynn Toussaint M.D. Onset: 11/2018 region and thigh Social History Type Date Description Comments Sex Unknown ETOH Use Occasionally consumes alcohol Tobacco Use Start: Unknown Patient has never smoked Smoking Status Reviewed: 04/10/19 Patient has never smoked Exercise Type/Frequency Exercises regularly Allergies, Adverse Reactions, Alerts Description No Known Drug Allergies Medications Active Medications SIG Qnty Indications Ordering Date Provider Amlodipine Besylate 1 by mouth every 90tabs I10 Jeanine Wells, 04/10/2019 10mg day M.D. Tablets Irbesartan 1 by mouth every 90tabs I10 Jeanine Wells, 02/24/2019 150mg Tablets day M.D. Levothyroxine Sodium 1 by mouth every 90tabs Abril Gongora MD day before 125mcg Tablets breakfast Acetaminophen 2 tablets by Unknown 325mg mouth every 6 Tablets hours as needed for pain/fever Probiotic Colon once a day Unknown Support Capsules Hydralazine HCL take 1 tablet by Unknown 25mg mouth three times Tablets a day Sodium Chloride take one tab by Unknown [...] Code Status Date Vaccine Reaction Lot # [id number] Given 04/10/2019 Tdap - adminstered to left [id number] Tetanus/Diptheria/Acellul deltoid, well tolerated, no ar Pertussis remarkable notings, bandaid applied [id number] Given 01/27/2019 Influ Virus Vaccine, Quadrivalent, Split Virus, Im Fluzone not PF Vital Signs Date Vital Result Comment 04/10/2019 10:57am Height 63 inches 5'3" Weight 167.00 lb Heart Rate 75 /min BP Systolic Sitting 188 mmHg Rue reg cuff BP Diastolic Sitting 98 mmHg Rue reg cuff O2 % BldC Oximetry 98 % BMI (Body Mass Index) 29.6 kg/m2 03/01/2019 1:59pm Height 63 inches 5'3" Weight 166.00 lb Heart Rate 81 /min BP Systolic Sitting 136 mmHg Lue reg cuff BP Diastolic Sitting 71 mmHg Lue reg cuff O2 % BldC Oximetry 98 % BMI (Body Mass Index) 29.4 kg/m2 Results Test Acquired Date Facility Test Result H/L Range Note Basic Metabolic 04/05/2019 [facility] Sodium 134 mmol/L Low 135-145 Panel [address] [place] [address] [phone] Potassium 4.9 mmol/L Normal 3.5-5.0 Chloride 102 mmol/L Normal 101-111 Co2 Carbon Dioxide 25 mmol/L Normal 22-32 Anion Gap 7 mmol/L Normal 2-11 Glucose 83 mg/dL Normal 70-100 Blood Urea Nitrogen 29 mg/dL High 6-24 Creatinine 0.99 mg/dL High 0.51-0.95 BUN/Creatinine Ratio 29.3 High 8-20 Calcium 9.3 mg/dL Normal 8.6-10.3 Egfr Non- 54.1 >60 Egfr 65.5 >60 1 Basic Metabolic 03/01/2019 [facility] Sodium 132 mmol/L Low 135-145 Panel [address] [place] [address] [phone] Potassium 4.2 mmol/L Normal 3.5-5.0 Chloride 98 mmol/L Low 101-111 Co2 Carbon Dioxide 27 mmol/L Normal 22-32 Anion Gap 7 mmol/L Normal 2-11 Glucose 97 mg/dL Normal 70-100 Blood Urea Nitrogen 27 mg/dL High 6-24 Creatinine 1.05 mg/dL High 0.51-0.95 BUN/Creatinine Ratio 25.7 High 8-20 Calcium 9.1 mg/dL Normal 8.6-10.3 Egfr Non- 50.6 >60 Egfr 61.2 >60 2 Basic Metabolic 02/24/2019 [facility] Sodium 126 mmol/L Low 135-145 Panel [address] [place] [address] [phone] Potassium 5.0 mmol/L Normal 3.5-5.0 Chloride 92 mmol/L Low 101-111 Co2 Carbon Dioxide 26 mmol/L Normal 22-32 Anion Gap 8 mmol/L Normal 2-11 Glucose 103 mg/dL High 70-100 Blood Urea Nitrogen 22 mg/dL Normal 6-24 Creatinine 0.73 mg/dL Normal 0.51-0.95 BUN/Creatinine Ratio 30.1 High 8-20 Calcium 9.3 mg/dL Normal 8.6-10.3 Egfr Non- 76.9 >60 Egfr 93.1 >60 3 Urinalysis Profile 02/14/2019 [facility] Urine Color Yellow [address] [place] [address] [phone] Urine Appearance Cloudy Urine Specific Hagerman 1.013 Normal 1.010-1.030 Urine pH 7.0 Normal [...] Cell Present Abnormal Absent Electrolytes Random 02/14/2019 [facility] Urine Sodium 90 mmol/ L Urine [address] [place] [address] [phone] Urine Potassium Concentration 69.7 mmol/L Urine Chloride Concentration 109 mmol/L Laboratory test 02/14/2019 [facility] Osmolality 474 Normal 100-[address] Urine mOsm/[place] [address] [phone] Urine Culture 02/14/2019 [facility] Urine Culture SEE RESULT [address] [place] [address] [phone] CBC Auto Diff 02/13/2019 [facility] White Blood 7.9 Normal 3.5 -10.[address] Count 10^3/[place] [address] [phone] Red Blood Count 3.89 10^6/uL Normal 3.70-4.87 [...] Blood Cells % 0.1 Basic Metabolic 02/13/2019 [facility] Potassium 4.0 mmol/L Normal 3.5-5.[address] [place] [address] [phone] Chloride 83 mmol/L Low 101-111 Co2 Carbon Dioxide 27 mmol/L Normal 22-32 Glucose 112 mg/dL High 70-100 Blood Urea Nitrogen 17 mg/dL Normal 6-24 Creatinine 0.80 mg/dL Normal 0.51-0.95 BUN/Creatinine Ratio 21.3 High 8-20 Calcium 9.6 mg/dL Normal 8.6-10.3 Egfr Non- 69.2 >60 Egfr 83.7 >60 5 Sodium 118 mmol/L Critical low 135-145 6 Anion Gap 8 mmol/L Normal 2-11 Laboratory 02/13/2019 [facility] Osmolality 262 mOsm/kg Low 275-295 test finding [address] [place] [address] [phone] Basic 02/13/2019 [facility] Potassium 4.5 mmol/L Normal 3.5- 5.0 [address] [place] [address] [phone] Chloride 82 mmol/L Low 101-111 Co2 Carbon Dioxide 27 mmol/L Normal 22-32 Glucose 95 mg/dL Normal 70-100 Blood Urea Nitrogen 16 mg/dL Normal 6-24 Creatinine 0.76 mg/dL Normal 0.51-0.95 BUN/Creatinine Ratio 21.1 High 8-20 Calcium 9.1 mg/dL Normal 8.6-10.3 Egfr Non- 73.4 >60 Egfr 88.8 >60 8 Sodium 117 mmol/L Critical low 135-145 9 Anion Gap 8 mmol/L Normal 2-11 Laboratory test 02/13/2019 [facility] Sodium Random 61 mmol/L finding [address] [place] [address] [phone] Urine Culture And 02/07/2019 [facility] Urine Culture SEE RESULT [address] [place] [address] [phone] Type & Screen 02/07/2019 [facility] Patient Blood A Positive [address] [place] [address] [phone] Antibody Screen NEGATIVE Comp Metabolic Panel 02/07/2019 [facility] Sodium 122 mmol/L Low 135-[address] [place] [address] [phone] Potassium 4.4 mmol/L Normal 3.5-5.0 Chloride 88 [...] Egfr Non- 72.3 >60 Egfr 87.5 >60 11 Urinalysis Profile 02/07/2019 [facility] [place] [address] [phone] Urine Appearance Cloudy Urine Specific Hagerman 1.017 Normal 1.010-1.030 Urine pH 6.0 Normal [...] Epithelial Cell Present Abnormal Absent Laboratory 01/28/2019 [facility] TSH (Thyroid 1.18 Normal 0.34 -5.[address] Stim Horm) mcIU/[place] [address] [phone] Lipid Profile 01/28/2019 [facility] Triglycerides 93 mg/dL 12 (Trig/Chol/HD [address] L) [place] [address] [phone] Cholesterol 239 mg/dL 13 HDL Cholesterol 57.3 mg/dL 14 LDL Cholesterol 163 mg/dL 15 Laboratory test 01/28/2019 [facility] Hemoglobin A1c 5.8 % High 4.0-5.6 [address] (Glyco HGB) [place] [address] [phone] Basic Metabolic 01/28/2019 [facility] Sodium 131 Low 135-[address] mmol/[place] [address] [phone] Potassium 4.7 mmol/L Normal 3.5-5.0 Chloride 95 mmol/L Low 101-111 Co2 Carbon Dioxide 27 mmol/L Normal 22-32 Anion Gap 9 mmol/L Normal 2-11 Glucose 92 mg/dL Normal 70-100 Blood Urea Nitrogen 22 mg/dL Normal 6-24 Creatinine 0.74 mg/dL Normal 0.51-0.95 BUN/Creatinine Ratio 29.7 High 8-20 Calcium 9.7 mg/dL Normal 8.6-10.3 Egfr Non- 75.7 >60 Egfr 91.6 >60 17 CBC Auto 01/28/2019 [facility] White Blood 7.8 10^3/uL Normal 3.5-10.[address] [place] [address] [phone] Red Blood Count 3.61 10^6/uL Low 3.70-4.87 [...] Red Blood Cells % 0.0 Inr/Protime 01/28/2019 [facility] Inr 0.94 Normal 0.82-1.[address] [place], [place] [address] [phone] Laboratory test 01/28/2019 [facility] Partial 28.7 Normal 26.0 -38.[address] [place] [address] Time PTT [phone] Order 01/27/2019 [facility] In-House EKG <pending> 1 Because ethnic data [...] 5 Kidney failure <15 (or dialysis) 4 SEE RESULT BELOW Name: DHARMESH GOMEZ : [address]: Zara Thomson MD Acct: [id number] Unit: [id number] AGE: 78 Location: [place] [address] Re02/14/19 SEX: F Status: ADM Gregg SPEC: [id number] [place]: 02/14/19-[address] [facility] [address]: Javier Adames MD REQ: [id number] RECD: 02/14/190 STATUS: TAYLOR MONTEMAYOR DR: Abril Gayle MD _ SOURCE: URINE SPDESC: ORDERED: Urine Culture Procedure Result Reported Site Urine Culture Final 02/15/19- 0857 ML No Growth (<1,000 CFU/mL) * ML - Main Lab . END OF REPORT DEPARTMENT OF PATHOLOGY, [address] [place] [address] Cong Willis M.D. Director [facility] # [id number] 5 Because ethnic data is not always readily [...] 15-29 5 Kidney failure <15 (or dialysis) 6 Critical Result NA:118 Called to [id number] at: 00:20:10 by:[id number] Read back by:[id number] pt was notified and sent to ER 8 Because ethnic data is not always [...] 5 Kidney failure <15 (or dialysis) 9 Critical Result NA:[address] PARIKH at: 21:21:37 by:[id number] Read back by:DR PARIKH 10 SEE RESULT BELOW Name: DHARMESH GOMEZ : [address]: Lynn Toussaint MD Acct: [id number] Unit: [id number] AGE: 78 Location: [facility] Re02/07/19 SEX: F Status: REG REF SPEC: [id number] [place]: 02/07/[address]: Lynn Toussaint MD REQ: [id number] RECD: 02/07/19 STATUS: COMP _ SOURCE: URINE SPDESC: ORDERED: Urine Culture QUERIES: Urine Source: Clean Catch Procedure Result Reported Site Urine Culture Final 02/08/19- 1249 ML No Growth (<1,000 CFU/mL) * ML - Main Lab . END OF REPORT DEPARTMENT OF PATHOLOGY, [address] [place] [address] Cong Willis M.D. Director [facility] # [id number] 11 Because ethnic data is not always readily [...] 15-29 5 Kidney failure <15 (or dialysis) 12 Desirable: <150 Borderline High: 150-199 High: 200-499 Very High: >500 13 Desirable: <200 Borderline High: 200-239 High: >239 14 Low: <40 Desirable: 40-60 High: >60 15 Desirable: <100 Near Optimal: 100-129 Borderline High: 130-159 High: 160-189 Very High: >189 16 Therapeutic target for the treatment of diabetes mellitus patients is <7% HBA1C, and in selective patients <6.0%. Please refer to [place] [employer] diabetic care guidelines for further information. 17 Because ethnic data is not always readily [...] 15-29 5 Kidney failure <15 (or dialysis) 18 Standard intensity warfarin therapeutic range: 2.0-3.0 High intensity warfarin therapeutic range: 2.5-3.5 Procedures Date Code Description Status 04/10/2019 54339 EKG Tracing & Interpretation Completed 01/27/2019 62149 EKG Tracing & Interpretation Completed 12/26/2018 Inj/Aspir Major JT Or Bursa W/ US Completed 11/18/2018 Inject/Drain Joint/Bursa Major W/O US Completed 11/11/2018 Inject/Drain Joint/Bursa Major W/O US Completed 11/04/2018 Inject/Drain Joint/Bursa Major W/O US Completed Medical Devices Description No Information Available Encounters Type Date Location Provider Dx Diagnosis Office Visit 03/01/2019 [facility] Abril Gongora MD E87.1 Hypo- osmolality and 2:00p Medicine - [facility] hyponatremia I10 Essential (primary) hypertension Office Visit 02/24/2019 1:40p [facility] Abril Gongora E87.1 Hypo- osmolality and Medicine - MD hyponatremia [facility] I10 Essential (primary) hypertension Office 02/17/2019 [facility] E87.1 Hypo-osmolality and Visit 9:31a Assoc,MARY JO Field hyponatremia Hospitalists R82.71 Bacteriuria I10 Essential (primary) hypertension Office Visit 02/16/2019 9:30a [facility] R82.71 Bacteriuria Assoc,MARY [facility] Hospitalists E87.1 Hypo-osmolality and hyponatremia I10 Essential (primary) hypertension Office Visit 02/15/2019 9:30a [facility] R82.71 Bacteriuria Assoc,MARY [facility] Hospitalists E87.1 Hypo-osmolality and hyponatremia I10 Essential (primary) hypertension Office Visit 02/14/2019 [facility] E87.1 Hypo-osmolality and 9:29a Assoc,candace Farrar M.D. hyponatremia Hospitalists I10 Essential (primary) hypertension R82.71 Bacteriuria Office Visit 02/13/2019 3:00p [facility] Abril Gongora E87.1 Hypo- osmolality and Medicine - MD hyponatremia [facility] I10 Essential (primary) hypertension Office Visit 01/10/2019 10:20a [facility] Internal Christianne Bustamante, I10 Essential (primary) Medicine - Suite DO hypertension R E03.9 Hypothyroidism, unspecified E87.5 Hyperkalemia Office Visit 01/04/2019 9:30a [facility] Lynn Roseke, M25.551 Pain in right at [place] M.D. hip M16.11 Unilateral primary osteoarthritis, right hip W19.xxxD Unspecified fall, subsequent encounter Office Visit 12/26/2018 8:45a [facility] Lynnsae Toussaint, M25.551 Pain in right at [place] M.D. hip M16.11 Unilateral primary osteoarthritis, right hip Z96.651 Presence of right artificial knee joint W19.xxxA Unspecified fall, initial encounter Office Visit 10/12/2018 9:15a [facility] Lynnmorales Toussaint, M25.562 Pain in left at [place] M.D. knee M25.462 Effusion, left knee M17.12 Unilateral primary osteoarthritis, left knee Assessments Date Code Description Provider 04/10/2019 Z01.818 Encounter for other preprocedural Jeanine [...] (primary) hypertension MARY JO Castellanos 02/15/2019 R82.71 Bacteriuria MARY JO Castellanos 02/15/2019 E87.1 Hypo-osmolality and hyponatremia MARY JO [...] in left knee Lynn Toussaint M.D. 01/27/2019 Z01.818 Encounter for other preprocedural Abril [...] M.D. 11/18/2018 M25.562 Pain in left knee Ros Sena.DNegrito 11/18/2018 M25.462 Effusion, left knee Lynn Toussaint, Ros.DNegrito 11/18/2018 M17.12 Unilateral primary osteoarthritis, left Ros Sena.Mauricio knee 11/18/2018 M54.5 Low back pain Lynn Toussaint M.D. 11/11/2018 M25.562 Pain in left knee Lynn Toussaint, M.DNegrito 11/11/2018 M25.462 Effusion, left knee Lynn Toussaint M.D. 11/11/2018 M17.12 Unilateral primary osteoarthritis, left Lynn Toussaint M.D. knee 11/04/2018 M25.562 Pain in left knee Lynn Toussaint, M.D. 11/04/2018 M25.462 Effusion, left knee Missael SenaDNegrito 11/04/2018 M17.12 Unilateral primary osteoarthritis, left Lynn Toussaint M.D. knee 10/12/2018 M25.562 Pain in left knee Ros Sena.DNegrito 10/12/2018 M25.462 Effusion, left knee Ros Sena.DNegrito 10/12/2018 M17.12 Unilateral primary osteoarthritis, left Lynn Toussaint M.D. knee Plan of Treatment Future Appointment(s):04/17/2019 10:30 am - [facility]30 am - Lynn Toussaint M.D. at [facility] at Vvvagp4304/19/2019 10:00 am - Lynn Toussaint M.D. at [facility] at Lbqejf5306/27/2019 10:00 am - Mindy Ramirez MD at [facility] Fmabxzuyxqo36/11/2019 - Jeanine Wells M.D.Z01.818 Encounter for other preprocedural lwlbatjloksA15.12 Unilateral primary osteoarthritis, left kneeComments:do not take aleve as it also raises your blood pressure and increases the bleeding riskI10 Essential ( primary) hypertensionNew Medication:Amlodipine Besylate 10 mg - 1 by mouth every dayComments:reduce coffeeFollow up:BP check in 1 week with njgswV99.9 Hypothyroidism, bdziarwxbmkQ50.1 Hypo-osmolality and hyponatremiaComments: repeat your labs 3-4 days prior to surgery as we are reducing the sodium intake to once a day , tryto restrict your fluid intake to 6 cups of 8 oz [id number] Encounter for immunization Functional Status Description No Information Available Mental Status Description No Information Available Referrals Description No Information Available
[2019-05-05] MEDS ORDERED: Gabapentin CAP(*) 100 MG ONE (07:21)
[2019-05-05] MEDS ORDERED: celeCOXIB CAP* 200 MG ONE (07:22)
[2019-05-05] MEDS ORDERED: Buffered Lidocaine 1% SYRIN* 1 ML/SYRINGE INTRADERM ONE (07:22)
[2019-05-05] MEDS ORDERED: Famotidine IV* 10 MG/ML 2 ML (20 mg) ONE (07:22)
[2019-05-05] MEDS ORDERED: ceFAZolin 2 GM PREMIX in ORs 2 GM/50 ML BAG ONE (07:22)
[2019-05-05] MEDS ORDERED: Dexamethasone IV* 4 MG/ML 1 ML (4 MG) ONE (07:22)
[2019-05-05] MEDS ORDERED: ROPIVACAINE 5 MG/ML 30 ML BTL (0.5%) ONE ×2 (07:53→08:00)
[2019-05-05] MEDS ORDERED: fentaNYL* 50 MCG/ML 2 ML VIAL (100 MCG VIAL) ONE (07:59)
[2019-05-05] MEDS ORDERED: Midazolam* 1 MG/ML 2 ML VIAL (2 MG) ONE ×2 (08:00→09:50)
[2019-05-05] MEDS ORDERED: Bupivacaine 0.5% SDV PF* 30ML VIAL ONE ×2 (08:00→08:05)
[2019-05-05] MEDS ORDERED: Lidocaine 2% PF * 5 ML VIAL ONE (08:09)
[2019-05-05] MEDS ORDERED: Naloxone* 0.4 MG/ML 1 ML VIAL IV PRN (10:13)
[2019-05-05] MEDS ORDERED: HYDROmorphone INJ1* 1 MG/ML SYRINGE IV PRN (10:13)
[2019-05-05] MEDS ORDERED: Acetaminophen IV 1GM/100ML * 1,000 MG/100 ML VIAL IVPB ONE (10:13)
[2019-05-05] MEDS ORDERED: Ondansetron INJ* 2 MG/ML VIAL IV PRN ×2 (10:13→11:07)
[2019-05-05] MEDS ORDERED: Polyethylene Glycol 3350* 17 GM PACKET PO PRN (11:07)
[2019-05-05] MEDS ORDERED: diPHENhydraMINE PO* 25 MG PO PRN (11:07)
[2019-05-05] MEDS ORDERED: Magnesium Hydroxide LIQ* 30 ML UDC PO PRN (11:07)
[2019-05-05] MEDS ORDERED: Ondansetron ODT TAB* 4 MG PO PRN (11:07)
[2019-05-05] MEDS ORDERED: Ondansetron TAB* 4 MG PO PRN (11:07)
[2019-05-05] MEDS ORDERED: Cyclobenzaprine TAB* 10 MG PO PRN (11:07)
[2019-05-05] MEDS ORDERED: diPHENhydraMINE IV* 50 MG/ML 1 ml VIAL (BENADRYL) IV PRN (11:07)
[2019-05-05] MEDS ORDERED: Acetaminophen IV 1GM/100ML * 100 ML ONE (12:40)
[2019-05-05] MEDS ORDERED: oxyCODONE TAB* 5 MG TAB ONE (13:05)
--- NOTE | 2019-05-05 14:12 | OP ---
Operative Report - Blank - Operative Report Date of Operation: 05/05/19 Note: DHARMESH ALBRIGHT 1940 Date of Surgery: 05/05/19 Lynn Toussaint MD Staff Training And Development Manager: Mercy CAMARGO did help throughout the procedure with preparation of the knee, wound retraction, manipulation of the knee, and wound closure. Anesthesiologist: Mauricio Solorio MD Anesthesia Type: Spinal Preoperative Diagnosis: Left severe degenerative osteoarthritis of the knee Postoperative Diagnosis: As above Procedure Performed: Left Total Knee Arthroplasty Tourniquet time: 40 minutes Complications: None Specimen: Bone and cartilage from the left knee joint sent to pathology. Hardware Used: Cemented [employer]hew total knee hardware was used - For the femur a size 5 narrow left legion posterior stabilized femoral component, for the tibia a size 3 left joss II tibial baseplate, for the insert a size 11mm 3-4 posterior stabilized articular polyethylene insert, and for the patella a size 32 3-peg all poly patella. Brief History/Indication: DHARMESH ALBRIGHT was known in clinic and had a history of severe left knee pain and swelling. She failed conservative treatment with anti-inflammatories, pain pills, intra-articular injections and physical therapy. She elected to undergo left total knee arthroplasty due to continued pain and decreased quality of life. Radiographs showed severe end stage osteoarthritis of the knee with bone on bone contact. Informed consent was obtained from the patient. She understood the risks of surgery included but were not limited to: bleeding, infection, damage to nearby structures, intraoperative fracture, nerve palsy, failure of the hardware, early loosening, knee stiffness or loss of motion, anesthesia complications, stroke, heart attack , blood clot and . She wished to proceed. Intra-Operative Findings: Intraoperatively the patient was noted to have severe loss of cartilage in all 3 compartments of the knee. Description of the Procedure: DHARMESH ALBRIGHT was identified in the preanesthesia unit. Her left knee was marked as the correct operative side. Informed consent was signed and placed in the chart. The patient was taken to the operating room and placed under anesthesia without complication. A alfaro catheter was placed. A tourniquet was placed on the left thigh. The left lower extremity was prepped and draped in the usual sterile fashion. Preoperative time-out was made to correctly identify the patient, side and site. Appropriate intraoperative antibiotics were given within one hour of incision. Tourniquet was inflated. A midline incision was made and carried sharply down to the extensor mechanism. A new 10 blade was used to make a standard medial parapatellar arthrotomy. The patella was subluxed laterally. Electrocautery was used to dissect soft tissue off the superomedial tibia to the midsagittal plane. The knee was flexed up. The anterior horn of the lateral meniscus and the ACL were sharply incised. A drill was used to enter the distal femur. The intramedullary distal femoral cutting guide was pinned on the distal femur. The oscillating saw was used to make the distal femoral cut. The external rotation guide was pinned on the distal femur and the distal femur was sized to a size 5. The size 5 multi-cutting jig was pinned on the distal femur. The oscillating saw was used to make the appropriate 4 chamfer cuts. Next the PCL was completely released. The extramedullary tibial cutting guide was pinned on the proximal tibia and the oscillating saw was used to make the proximal tibial cut perpendicular to the mechanical axis of the tibia. The bone was carefully removed. The knee was brought out into full extension. The spacer block was placed and had excellent fit with the knee in full extension. The medial and lateral ligaments were well balanced. The flexion and extension gaps were well balanced. The knee was flexed up. Lamina cloth picker was placed both medially and laterally. Any remaining meniscus was removed with electrocautery. Curved osteotome was used to remove any posterior osteophytes. The tibial tray and drop orlando were placed and confirmed a satisfactory tibial cut. The size 5 left femoral trial was impacted onto the distal femur. This trial had excellent fit and stability. The box for the posterior stabilized implant was prepared using a box cut osteotome and a reamer. Next a tibial tray trial and 9 mm insert trial was placed. The knee was taken through a range of motion and had full extension to 130 degrees of flexion. Patellofemoral tracking was satisfactory. The patella was inverted and sized to a size 32. Three peg holes were drilled through the size 32 drill guide. The trial patella was placed and the knee was taken through a range of motion. There was satisfactory patellofemoral tracking. All trials were removed. The tibia was subluxed anteriorly and sized to a size 3. The proximal tibial was prepared with a size 3 keel punch. All bony cut surfaces were irrigated with sterile saline and dried. Final implants were cemented into place starting with the tibia, followed by the femur, and last the patella. A 11 mm insert trial was placed and the knee was brought into full extension. Tourniquet was turned down and the knee was copiously irrigated with sterile saline. Electrocautery was used to obtain meticulous hemostasis. Once the cement had fully cured, the insert trial was removed. Any excess cement was removed from around the hardware and capsule. Final insert chosen was a 11 mm posterior stabilized Joss II articular insert size 3-4. Stability of the insert was checked and noted to be stable. The extensor mechanism was closed using number 1 vicryls. The rest of the incision was closed in a layered fashion using 0 and 2-0 vicryls. The skin was closed using 3-0 nylon suture. Sterile xeroform, 4x4s and webril were used to cover the incision. Angel wrap and cold pack were used to cover the dressings. The patients anesthesia was reversed without difficulty. She was taken to the PACU in stable condition. Intended weight-bearing will be as tolerated.
[2019-05-05] MEDS ORDERED: NS 0.9% 1000 ML** 1,000 ML IV SCH (14:15)
[2019-05-05] MEDS: ceFAZolin 1 GM ADVAN(*) 1 GM in NS 0.9% 50 ML* 50 ML IVPB SCH (17:23)
[2019-05-05] MEDS: oxyCODONE TAB* 5 MG TAB PO PRN ×2 (17:25→21:06)
--- NOTE | 2019-05-05 17:29 | CONS ---
CC: Dr. Jeanine Wells * MEDICINE CONSULTATION REPORT: DATE OF CONSULT: 05/05/19 PROVIDER: Martha Galeas NP CONSULTING PHYSICIAN: Dr. Jyotsna Lopez (dictated by Martha Galeas NP). REQUESTING PHYSICIAN: Dr. Lynn Toussaint. PRIMARY CARE PROVIDER: Dr. Jeanine Wells. REASON FOR CONSULT: Co-medical management in postoperative period. HISTORY OF PRESENT ILLNESS: Ms. Gomez is a 78-year-old female who is electively admitted today on 05/05/19 for a left total knee arthroplasty. She is seen in her room. She is sitting up eating lunch. She reports that she just recently took pain medication, as her pain was starting to increase. She is fully alert and denies any other concerns, states that she was in good health prior to admission. She is very engaged in the idea of going home with therapy and is appropriately asking questions and preparing to participate in physical therapy as soon as possible. She denies any other acute concerns. PAST MEDICAL HISTORY: Significant for hypothyroidism, hypertension, and chronic hyponatremia. PAST SURGICAL HISTORY: Includes right total knee arthroplasty, tonsillectomy, and right eye surgery. MEDICATIONS: Home medications which I clarified with the patient: 1. Amlodipine 10 mg daily. 2. Ultracet 25 mg q.8 hours p.r.n. 3. Irbesartan 150 mg daily. 4. Levothyroxine 125 mcg daily. 5. Probiotic. 6. Sodium chloride 1 g twice a day. ALLERGIES: No known drug allergies. FAMILY HISTORY: Reports a history of coronary artery disease and stroke. SOCIAL HISTORY: She denies any history of smoking. She denies any alcohol use. Denies any history of drug use. She does live alone. She does have stairs in her house. She was previously independent, although will be having her daughter stay with her upon discharge and her daughter, Quyen Gomez, is her surrogate decision maker in the event of emergency. REVIEW OF SYSTEMS: A 14-point review of systems was completed. All pertinent positives and negatives as per HPI. All those not mentioned are negative. PHYSICAL EXAM: Vital Signs: Temperature 97.3, heart rate 73, respiratory rate 16, blood pressure 122/41, O2 saturation 96% on room air. General: This is a very pleasant 78-year-old female seen sitting up in bed, in no acute distress. HEENT: Head is atraumatic, normocephalic. Face is symmetrical. Pupils are equal, round, and reactive to light and accommodation. Extraocular movements are intact. Sclerae are anicteric. Oral mucosa is moist. Neck is supple. No lymphadenopathy appreciated. There is full range of motion. Cardiac: Regular rate and rhythm. Normal S1, S2 heart sounds. No murmurs appreciated. No peripheral edema noted. Distal pulses are 2+ and equal bilaterally in radial and pedal pulses. Lungs are clear to auscultation bilaterally. Abdomen is soft , nontender, nondistended with normoactive bowel sounds. Musculoskeletal: There is no clubbing or cyanosis of the digits. Skin: Warm and dry. There is clean, dry, and intact dressing to left knee. Neuro: She is alert and oriented x3. Speech is fluent. No focal deficits. Sensation is intact to light touch to lower extremities. ASSESSMENT AND PLAN: This is a 78-year-old female with PMH significant for HTN , hypothyroidism, and hyponatremia who is status post left total knee arthroplasty. Plan is as follows: 1. Left total knee arthroplasty. Management per Ortho. Again, she is postop day 0. She will be ordered PT/OT. We will continue focusing on p.r.n. analgesia and bowel regimen. 2. Hypothyroidism. Continue with current levothyroxine dose. 3. Hypertension. Currently under good control and she should continue on her home amlodipine. Will hold ARB in first 24 hour post operative period and resume postop day 2 if BMP stable. 4. Chronic hyponatremia. She is on sodium chloride replacement. Most recent BMP on 05/03/19 showed a sodium of 131. We will follow her BMP again tomorrow. She is receiving normal saline. She is not on any diuretics. We will monitor this closely. 5. DVT prophylaxis: She is ordered Eliquis as per Ortho. 6. Code status: She is a full code. TIME SPENT: Approximately 45 minutes was spent on this consultation with greater than half that time spent [id number] with the patient obtaining history and physical, performing physical examination, and reviewing the plan of care. Plan of care was also reviewed with my attending, Dr. Lopez, who is in agreement. MARTHA GALEAS, DEPARTMENT MGR [id number]/[facility] #: [id number] SABINE
[2019-05-05] MEDS: Docusate CAP* 100 MG PO SCH (21:07)
[2019-05-05] MEDS: Magnesium Hydroxide LIQ* 30 ML UDC PO SCH (21:07)
[2019-05-05] MEDS: Sodium Chloride TAB* 1 GM PO SCH (22:03)
[2019-05-05] MEDS: Acetaminophen TAB* 325 MG PO SCH (22:04)
[2019-05-06] MEDS: Morphine INJ* 2 MG/ML 1 ML SYRINGE (TWO MG - NEW SYRINGE VERSION) IV PRN ×2 (00:10→03:52)
[2019-05-06] MEDS: ceFAZolin 1 GM ADVAN(*) 1 GM in NS 0.9% 50 ML* 50 ML IVPB SCH ×2 (01:09→10:05)
[2019-05-06] MEDS: oxyCODONE TAB* 5 MG TAB PO PRN ×5 (02:13→21:17)
[2019-05-06] MEDS: oxyCODONE/Acetamin 5/325 MG* TAB PO PRN ×5 (05:02→22:34)
[2019-05-06] MEDS: Levothyroxine TAB* 125 MCG TAB PO SCH (05:11)
[2019-05-06] MEDS: Acetaminophen TAB* 325 MG PO SCH ×3 (05:21→22:57)
[2019-05-06 06:23] LABS: Hematocrit 27 % (35-47); Hemoglobin 9.1 g/dL (12.0-16.0); Mean Platelet Volume 7.4 fL (7.4-10.4); Platelet Count 263 10^3/uL (150-450)
[2019-05-06 06:37] LABS: BUN/Creatinine Ratio 21.4 (8-20); Calcium 8.7 mg/dL (8.6-10.3); EGFR African American 79.1 (>60); EGFR Non-African American 65.4 (>60); Potassium 4.4 mmol/L (3.5-5.0)
[2019-05-06] MEDS ORDERED: Losartan TAB* 25 MG PO SCH (09:00)
[2019-05-06] MEDS: Magnesium Hydroxide LIQ* 30 ML UDC PO SCH ×2 (10:05→21:18)
[2019-05-06] MEDS: Vitamin THERAPEUTIC TAB PO SCH (10:06)
[2019-05-06] MEDS: Docusate CAP* 100 MG PO SCH ×2 (10:06→21:16)
[2019-05-06] MEDS: amLODIPine TAB* 5 MG PO SCH (10:06)
[2019-05-06] MEDS: Apixaban* 2.5 MG TAB PO SCH ×2 (10:06→21:16)
[2019-05-06] MEDS: Sodium Chloride TAB* 1 GM PO SCH ×2 (10:06→21:18)
--- NOTE | 2019-05-06 10:24 | PN ---
Subjective Date of Service: 05/06/19 Interval History: Patient seen and examined at bedside. Did not sleep well last night, continues to endorse pain concerns. Denies fever/ chills, CP, SOB. Concerned about stairs at home. Family History: Unchanged from Admission Social History: Unchanged from Admission Past Medical History: Unchanged from Admission Objective Active Medications: Acetaminophen (Tylenol Tab*) 975 mg PO Q8HR [facility] Last Admin: 05/06/19 05:21 Dose: Not Given Amlodipine Besylate (Norvasc Tab*) 10 mg PO QAM [facility] Last Admin: 05/06/19 10:06 Dose: 10 mg Apixaban (Eliquis*) 2.5 mg PO BID [facility] Last Admin: 05/06/19 10:06 Dose: 2.5 mg Bisacodyl (Dulcolax Supp*) 10 mg [place] DAILY PRN PRN Reason: CONSTIPATION Cyclobenzaprine HCl (Flexeril Tab*) 10 mg PO Q6H PRN PRN Reason: SPASMS Last Admin: 05/06/19 03:54 Dose: 10 mg Diphenhydramine HCl (Benadryl Iv*) 25 mg IV Q6H PRN PRN Reason: PRURITIS Diphenhydramine HCl (Benadryl Po*) 25 mg PO Q6H PRN PRN Reason: PRURITIS Docusate Sodium (Colace Cap*) 100 mg PO BID [facility] Last Admin: 05/06/19 10:06 Dose: 100 mg Sodium Chloride (Ns 0.9% 1000 Ml) 1,000 mls @ 100 mls/hr IV PER RATE [facility] Last Admin: 05/06/19 01:02 Dose: 100 mls/hr Lactulose (Lactulose*) 30 ml PO BID PRN PRN Reason: CONSTIPATION Levothyroxine Sodium (Synthroid Tab*) 125 mcg PO QAM@0600 [facility] Last Admin: 05/06/19 05:11 Dose: 125 mcg Losartan Potassium (Cozaar Tab*) 50 mg PO QAM [facility] Magnesium Hydroxide (Milk Of Magnesia Liq*) 30 ml PO BID [facility] Last Admin: 05/06/19 10:05 Dose: 30 ml Magnesium Hydroxide (Milk Of Magnesia Liq*) 30 ml PO Q6H PRN PRN Reason: CONSTIPATION Morphine Sulfate (Morphine Inj (Syringe))*) 2 mg IV Q4H PRN PRN Reason: Pain - Unrelieved Last Admin: 05/06/19 03:52 Dose: 2 mg Multivitamins (Theragran Tab*) 1 tab PO DAILY [facility] Last Admin: 05/06/19 10:06 Dose: 1 tab Ondansetron HCl (Zofran Inj*) 4 mg IV Q6H PRN PRN Reason: NAUSEA Ondansetron HCl (Zofran Odt Tab*) 4 mg PO Q6H PRN PRN Reason: NAUSEA Ondansetron HCl (Zofran Tab*) 4 mg PO Q6H PRN PRN Reason: NAUSEA Oxycodone HCl (Roxycodone Tab*) 10 mg PO Q4H PRN PRN Reason: Pain - Breakthrough Last Admin: 05/06/19 08:09 Dose: 10 mg Oxycodone/Acetaminophen (Percocet 5/325 Tab*) 2 tab PO Q4H PRN PRN Reason: PAIN - SEVERE Last Admin: 05/06/19 10:09 Dose: 2 tab Polyethylene Glycol/Electrolytes (Miralax*) 17 gm PO DAILY PRN PRN Reason: Constipation Last Admin: 05/06/19 05:03 Dose: 17 gm Sodium Chloride (Sodium Chloride Tab*) 1 gm PO BID [facility] Last Admin: 05/06/19 10:06 Dose: 1 gm Tramadol HCl (Ultram*) 50 mg PO Q6H PRN PRN Reason: PAIN - MODERATE Vital Signs - 8 hr 05/06/19 05/06/19 05/06/19 03:34 03:52 03:54 Temperature 98.0 F Pulse Rate 67 Respiratory 16 18 16 Rate Blood Pressure 134/48 (mmHg) O2 Sat by Pulse 94 Oximetry 05/06/19 05/06/19 05/06/19 05:02 05:08 05:09 Temperature Pulse Rate Respiratory 16 16 16 Rate Blood Pressure (mmHg) O2 Sat by Pulse Oximetry 05/06/19 05/06/19 05/06/19 07:33 08:09 08:28 Temperature 97.8 F Pulse Rate 73 Respiratory 16 16 18 Rate Blood Pressure 154/63 (mmHg) O2 Sat by Pulse 92 Oximetry 05/06/19 10:09 Temperature Pulse Rate Respiratory 16 Rate Blood Pressure (mmHg) O2 Sat by Pulse Oximetry Oxygen Devices in Use Now: None Appearance: 78 yo female, lying in bed, NAD Eyes: No Scleral Icterus, PERRLA Ears/Nose/Mouth/Throat: Mucous Membranes Moist Neck: NL Appearance and Movements; NL JVP Cardiovascular: NL Sounds; No Murmurs; No JVD, RRR Extremities: No Clubbing, Cyanosis Neurological: Alert and Oriented x 3 Lines/Tubes/Other Access: Clean, Dry and Intact Peripheral IV Result Diagrams: 05/06/19 06:08 05/06/19 06:08 Assess/Plan/Problems-Billing Assessment: Ms. Gomez is a 78-year-old female with PMH significant for HTN, hypothyroidism , and hyponatremia who is status post left total knee arthroplasty. - Patient Problems (1) Status post total left knee replacement Code(s): Z96.652 - PRESENCE OF LEFT ARTIFICIAL KNEE JOINT Comment: POD#1, management per ortho Continue pain mgmt, bowel regimen PT/OT PMRU referral per pt request, if she qualifies CM following for potential rehab needs (2) Hypertension Code(s): I10 - ESSENTIAL (PRIMARY) HYPERTENSION Comment: With acceptable control Continue home amlodipine, resume losartan tomorrow (3) Hyponatremia Code(s): E87.1 - HYPO-OSMOLALITY AND HYPONATREMIA Comment: Stable, NA 135 (WNL) Continue sodium tablets BID (4) Hypothyroidism Code(s): E03.9 - HYPOTHYROIDISM, UNSPECIFIED Comment: Continue home levothyroxine (5) DVT prophylaxis Code(s): Z29.9 - ENCOUNTER FOR PROPHYLACTIC MEASURES, UNSPECIFIED Comment: Per ortho Continue apixaban (6) Full code status Code(s): Z78.9 - OTHER SPECIFIED HEALTH STATUS Status and Disposition: Inpatient, dispo per ortho.
--- NOTE | 2019-05-06 15:13 | PN ---
Progress Note - Progress Note Date of Service: 05/06/19 Note: Patient resting in bed. She worked with PT today, but felt limited due to pain. She had pain overnight that improved today with consistent use of oxycodone and percocet. She denies CP, SOB, or calf pain. Her dressing is C/D/I with cryo in place. She has intact sensation to light touch with +DF/PF and 2+ PT pulse. She will continue to work with PT and pain management. We will monitor and expect she may go to rehab.
[2019-05-06] MEDS: traMADol TAB* 50 MG PO PRN (22:34)
[2019-05-07] MEDS: oxyCODONE TAB* 5 MG TAB PO PRN ×3 (00:40→12:34)
[2019-05-07] MEDS: oxyCODONE/Acetamin 5/325 MG* TAB PO PRN ×4 (04:48→22:57)
[2019-05-07] MEDS: Acetaminophen TAB* 325 MG PO SCH ×3 (06:33→23:01)
[2019-05-07 06:40] LABS: Hematocrit 27 % (35-47); Hemoglobin 9.4 g/dL (12.0-16.0); Mean Platelet Volume 8.1 fL (7.4-10.4); Platelet Count 256 10^3/uL (150-450)
[2019-05-07] MEDS: Levothyroxine TAB* 125 MCG TAB PO SCH (06:44)
[2019-05-07] MEDS: Sodium Chloride TAB* 1 GM PO SCH ×2 (08:12→21:23)
[2019-05-07] MEDS: Losartan TAB* 25 MG PO SCH (08:12)
[2019-05-07] MEDS: Docusate CAP* 100 MG PO SCH ×2 (08:12→21:25)
[2019-05-07] MEDS: Apixaban* 2.5 MG TAB PO SCH ×2 (08:12→21:23)
[2019-05-07] MEDS: Vitamin THERAPEUTIC TAB PO SCH (08:12)
[2019-05-07] MEDS: amLODIPine TAB* 5 MG PO SCH (08:12)
[2019-05-07] MEDS: Magnesium Hydroxide LIQ* 30 ML UDC PO SCH ×2 (08:13→20:24)
--- NOTE | 2019-05-07 09:41 | PN ---
Progress Note - Progress Note Date of Service: 05/07/19 Note: POD 2 s/p LTKA: Patient resting comfortably in joint chair. She has just returned from PT and was experiencing increased pain. She has just taken a pain pill and hopes this will help soon. She denies CP, SOB or calf pain. No dizziness or lightheadedness. Her dressing is C/D/I with cryo in place. Dressing changed today. Incision is benign in appearance, well approximated with intact sutures and no active drainage. New gauze and KAREL applied. Patient will continue working with PT and nursing for pain management. Hope for d/c tomorrow to [facility] if bed is available.
--- NOTE | 2019-05-07 16:44 | PN ---
Subjective Date of Service: 05/07/19 Interval History: Patient seen sitting in chair. States that she is doing relatively well today though is not moving around quite as well as she would have hoped. Pain is well enough managed. Awaiting STR placement, would preferably like to go to [facility]. Family History: Unchanged from Admission Social History: Unchanged from Admission Past Medical History: Unchanged from Admission Objective Active Medications: Acetaminophen (Tylenol Tab*) 975 mg PO Q8HR [facility] Last Admin: 05/07/19 12:33 Dose: Not Given Amlodipine Besylate (Norvasc Tab*) 10 mg PO QAM [facility] Last Admin: 05/07/19 08:12 Dose: 10 mg Apixaban (Eliquis*) 2.5 mg PO BID [facility] Last Admin: 05/07/19 08:12 Dose: 2.5 mg Bisacodyl (Dulcolax Supp*) 10 mg [place] DAILY PRN PRN Reason: CONSTIPATION Cyclobenzaprine HCl (Flexeril Tab*) 10 mg PO Q6H PRN PRN Reason: SPASMS Last Admin: 05/06/19 03:54 Dose: 10 mg Diphenhydramine HCl (Benadryl Iv*) 25 mg IV Q6H PRN PRN Reason: PRURITIS Diphenhydramine HCl (Benadryl Po*) 25 mg PO Q6H PRN PRN Reason: PRURITIS Docusate Sodium (Colace Cap*) 100 mg PO BID [facility] Last Admin: 05/07/19 08:12 Dose: 100 mg Sodium Chloride (Ns 0.9% 1000 Ml) 1,000 mls @ 100 mls/hr IV PER RATE [facility] Last Admin: 05/06/19 01:02 Dose: 100 mls/hr Lactulose (Lactulose*) 30 ml PO BID PRN PRN Reason: CONSTIPATION Last Admin: 05/07/19 08:12 Dose: 30 ml Levothyroxine Sodium (Synthroid Tab*) 125 mcg PO QAM@0600 [facility] Last Admin: 05/07/19 06:44 Dose: 125 mcg Losartan Potassium (Cozaar Tab*) 50 mg PO QAM [facility] Last Admin: 05/07/19 08:12 Dose: 50 mg Magnesium Hydroxide (Milk Of Magnesia Liq*) 30 ml PO BID [facility] Last Admin: 05/07/19 08:13 Dose: Not Given Magnesium Hydroxide (Milk Of Magnesia Liq*) 30 ml PO Q6H PRN PRN Reason: CONSTIPATION Morphine Sulfate (Morphine Inj (Syringe))*) 2 mg IV Q4H PRN PRN Reason: Pain - Unrelieved Last Admin: 05/06/19 03:52 Dose: 2 mg Multivitamins (Theragran Tab*) 1 tab PO DAILY [facility] Last Admin: 05/07/19 08:12 Dose: 1 tab Ondansetron HCl (Zofran Inj*) 4 mg IV Q6H PRN PRN Reason: NAUSEA Last Admin: 05/07/19 13:03 Dose: 4 mg Ondansetron HCl (Zofran Odt Tab*) 4 mg PO Q6H PRN PRN Reason: NAUSEA Ondansetron HCl (Zofran Tab*) 4 mg PO Q6H PRN PRN Reason: NAUSEA Oxycodone HCl (Roxycodone Tab*) 10 mg PO Q4H PRN PRN Reason: Pain - Breakthrough Last Admin: 05/07/19 12:34 Dose: 10 mg Oxycodone/Acetaminophen (Percocet 5/325 Tab*) 2 tab PO Q4H PRN PRN Reason: PAIN - SEVERE Last Admin: 05/07/19 15:53 Dose: 1 tab Polyethylene Glycol/Electrolytes (Miralax*) 17 gm PO DAILY PRN PRN Reason: Constipation Last Admin: 05/06/19 05:03 Dose: 17 gm Sodium Chloride (Sodium Chloride Tab*) 1 gm PO BID [facility] Last Admin: 05/07/19 08:12 Dose: 1 gm Tramadol HCl (Ultram*) 50 mg PO Q6H PRN PRN Reason: PAIN - MODERATE Last Admin: 05/06/19 22:34 Dose: 50 mg Vital Signs - 8 hr 05/07/19 05/07/19 05/07/19 09:10 09:15 11:05 Temperature Pulse Rate Respiratory 20 20 16 Rate Blood Pressure (mmHg) O2 Sat by Pulse Oximetry 05/07/19 05/07/19 05/07/19 11:34 12:34 14:48 Temperature 99.1 F Pulse Rate 74 Respiratory 16 20 18 Rate Blood Pressure 134/52 (mmHg) O2 Sat by Pulse 94 Oximetry 05/07/19 05/07/19 05/07/19 15:30 15:50 15:53 Temperature 99.4 F Pulse Rate 80 Respiratory 16 18 Rate Blood Pressure 128/53 (mmHg) O2 Sat by Pulse 96 Oximetry Oxygen Devices in Use Now: None Appearance: This is a well developed older woman seen sitting in chair. Eyes: No Scleral Icterus, PERRLA Ears/Nose/Mouth/Throat: NL Teeth, Lips, Gums, Clear Oropharnyx, Mucous Membranes Moist Neck: NL Appearance and Movements; NL JVP, Trachea Midline Respiratory: Symmetrical Chest Expansion and Respiratory Effort, Clear to Auscultation Cardiovascular: NL Sounds; No Murmurs; No JVD, RRR, No Edema Abdominal: NL Sounds; No Tenderness; No Distention Lymphatic: No Cervical Adenopathy Extremities: No Clubbing, Cyanosis, - - +1 pitting edema to left lower extremity. Skin: No Rash or Ulcers, No Nodules or Sclerosis, - - Dressing to left knee incision is clean, dry and intact with cryounit in place. Neurological: Alert and Oriented x 3 Lines/Tubes/Other Access: Clean, Dry and Intact Peripheral IV Result Diagrams: 05/07/19 06:02 05/06/19 06:08 Assess/Plan/Problems-Billing Assessment: Ms. Gomez is a 78-year-old female with PMH significant for HTN, hypothyroidism , and hyponatremia who is status post left total knee arthroplasty. - Patient Problems (1) Status post total left knee replacement Current Visit: Yes Status: Acute Code(s): Z96.652 - PRESENCE OF LEFT ARTIFICIAL KNEE JOINT SNOMED Code(s): 7156220827687 Comment: POD#2, management per ortho Continue pain mgmt, bowel regimen PT/OT Patient would like to go to [facility] for STR if possible. If not, another facility will do. Does not feel safe to go home from the hospital. (2) Hypertension Current Visit: No Status: Chronic Code(s): I10 - ESSENTIAL (PRIMARY) HYPERTENSION SNOMED Code(s): 06328142 Comment: With acceptable control Continue home amlodipine and losartan (3) Hyponatremia Current Visit: No Status: Chronic Code(s): E87.1 - HYPO-OSMOLALITY AND HYPONATREMIA SNOMED Code(s): 76705272 Comment: Stable, NA 135 (WNL) Continue sodium tablets BID (4) Hypothyroidism Current Visit: No Status: Chronic Code(s): E03.9 - HYPOTHYROIDISM, UNSPECIFIED SNOMED Code(s): 80751769 Comment: Continue home levothyroxine (5) DVT prophylaxis Current Visit: No Status: Acute Code(s): Z29.9 - ENCOUNTER FOR PROPHYLACTIC MEASURES, UNSPECIFIED SNOMED Code(s): 215754359 Comment: Per ortho Continue apixaban and SCD's. (6) Full code status Current Visit: No Status: Acute Code(s): Z78.9 - OTHER SPECIFIED HEALTH STATUS SNOMED Code(s): 072743165 Status and Disposition: Inpatient, dispo per ortho. Attending: Georgina Farrar
[2019-05-07] MEDS: traMADol TAB* 50 MG PO PRN (21:23)
[2019-05-08] MEDS: oxyCODONE/Acetamin 5/325 MG* TAB PO PRN ×3 (05:24→13:48)
[2019-05-08] MEDS: Levothyroxine TAB* 125 MCG TAB PO SCH (05:25)
[2019-05-08 06:03] LABS: Hematocrit 29 % (35-47); Hemoglobin 9.6 g/dL (12.0-16.0); Platelet Count 245 10^3/uL (150-450)
[2019-05-08] MEDS: Acetaminophen TAB* 325 MG PO SCH ×3 (06:04→21:27)
[2019-05-08] MEDS: traMADol TAB* 50 MG PO PRN ×2 (07:38→21:27)
[2019-05-08] MEDS: amLODIPine TAB* 5 MG PO SCH (09:16)
[2019-05-08] MEDS: Apixaban* 2.5 MG TAB PO SCH ×2 (09:17→21:27)
[2019-05-08] MEDS: Docusate CAP* 100 MG PO SCH ×2 (09:17→21:28)
[2019-05-08] MEDS: Sodium Chloride TAB* 1 GM PO SCH ×2 (09:17→21:27)
[2019-05-08] MEDS: Vitamin THERAPEUTIC TAB PO SCH (09:17)
[2019-05-08] MEDS: Losartan TAB* 25 MG PO SCH (09:17)
[2019-05-08] MEDS ORDERED: NS 0.9% 500 ML* 500 ML IV ONE (09:39)
--- NOTE | 2019-05-08 09:45 | PN ---
Subjective Date of Service: 05/08/19 Interval History: Patient seen just after her PT session, sitting up in chair. No acute complaints this morning other than feeling slightly lightheaded/dizzy initially upon standing. Denies chest pain, palpitations, shortness of breath, abdominal pain, nausea, vomiting, issues with bowel or bladder. Family History: Unchanged from Admission Social History: Unchanged from Admission Past Medical History: Unchanged from Admission Objective Active Medications: Acetaminophen (Tylenol Tab*) 975 mg PO Q8HR [facility] Last Admin: 05/08/19 06:04 Dose: Not Given Amlodipine Besylate (Norvasc Tab*) 10 mg PO QAM [facility] Last Admin: 05/08/19 09:16 Dose: 10 mg Apixaban (Eliquis*) 2.5 mg PO BID [facility] Last Admin: 05/08/19 09:17 Dose: 2.5 mg Bisacodyl (Dulcolax Supp*) 10 mg [place] DAILY PRN PRN Reason: CONSTIPATION Cyclobenzaprine HCl (Flexeril Tab*) 10 mg PO Q6H PRN PRN Reason: SPASMS Last Admin: 05/06/19 03:54 Dose: 10 mg Diphenhydramine HCl (Benadryl Iv*) 25 mg IV Q6H PRN PRN Reason: PRURITIS Diphenhydramine HCl (Benadryl Po*) 25 mg PO Q6H PRN PRN Reason: PRURITIS Docusate Sodium (Colace Cap*) 100 mg PO BID [facility] Last Admin: 05/08/19 09:17 Dose: 100 mg Sodium Chloride (Ns 0.9% 1000 Ml) 1,000 mls @ 100 mls/hr IV PER RATE [facility] Last Admin: 05/06/19 01:02 Dose: 100 mls/hr Sodium Chloride (Ns 0.9% 500 Ml*) 500 mls @ 0 mls/hr IV ONCE ONE Stop: 05/08/19 09:40 Lactulose (Lactulose*) 30 ml PO BID PRN PRN Reason: CONSTIPATION Last Admin: 05/07/19 08:12 Dose: 30 ml Levothyroxine Sodium (Synthroid Tab*) 125 mcg PO QAM@0600 [facility] Last Admin: 05/08/19 05:25 Dose: 125 mcg Losartan Potassium (Cozaar Tab*) 50 mg PO QAM [facility] Last Admin: 05/08/19 09:17 Dose: 50 mg Magnesium Hydroxide (Milk Of Magnesia Liq*) 30 ml PO Q6H PRN PRN Reason: CONSTIPATION Morphine Sulfate (Morphine Inj (Syringe))*) 2 mg IV Q4H PRN PRN Reason: Pain - Unrelieved Last Admin: 05/06/19 03:52 Dose: 2 mg Multivitamins (Theragran Tab*) 1 tab PO DAILY [facility] Last Admin: 05/08/19 09:17 Dose: 1 tab Ondansetron HCl (Zofran Inj*) 4 mg IV Q6H PRN PRN Reason: NAUSEA Last Admin: 05/07/19 13:03 Dose: 4 mg Ondansetron HCl (Zofran Odt Tab*) 4 mg PO Q6H PRN PRN Reason: NAUSEA Ondansetron HCl (Zofran Tab*) 4 mg PO Q6H PRN PRN Reason: NAUSEA Oxycodone HCl (Roxycodone Tab*) 10 mg PO Q4H PRN PRN Reason: Pain - Breakthrough Last Admin: 05/07/19 12:34 Dose: 10 mg Oxycodone/Acetaminophen (Percocet 5/325 Tab*) 2 tab PO Q4H PRN PRN Reason: PAIN - SEVERE Last Admin: 05/08/19 05:24 Dose: 2 tab Polyethylene Glycol/Electrolytes (Miralax*) 17 gm PO DAILY PRN PRN Reason: Constipation Last Admin: 05/06/19 05:03 Dose: 17 gm Sodium Chloride (Sodium Chloride Tab*) 1 gm PO BID [facility] Last Admin: 05/08/19 09:17 Dose: 1 gm Tramadol HCl (Ultram*) 50 mg PO Q6H PRN PRN Reason: PAIN - MODERATE Last Admin: 05/08/19 07:38 Dose: 50 mg Vital Signs - 8 hr 05/08/19 05/08/19 05/08/19 02:58 05:24 07:38 Temperature 98 F Pulse Rate 76 Respiratory 16 16 16 Rate Blood Pressure 147/58 (mmHg) O2 Sat by Pulse 97 Oximetry 05/08/19 05/08/19 05/08/19 07:39 08:20 09:15 Temperature 98.9 F Pulse Rate 74 Respiratory 16 16 Rate Blood Pressure 107/37 118/54 (mmHg) O2 Sat by Pulse 96 Oximetry 05/08/19 09:21 Temperature Pulse Rate Respiratory 18 Rate Blood Pressure (mmHg) O2 Sat by Pulse Oximetry Oxygen Devices in Use Now: None Appearance: Well developed older woman seen resting in chair, no acute distress. Eyes: No Scleral Icterus, PERRLA Ears/Nose/Mouth/Throat: NL Teeth, Lips, Gums, Clear Oropharnyx, - - Mucous membranes slightly dry Neck: NL Appearance and Movements; NL JVP, Trachea Midline Respiratory: Symmetrical Chest Expansion and Respiratory Effort, Clear to Auscultation Cardiovascular: NL Sounds; No Murmurs; No JVD, RRR, - - +1 pitting edema to bilateral lower extremities. Abdominal: NL Sounds; No Tenderness; No Distention Lymphatic: No Cervical Adenopathy Extremities: No Clubbing, Cyanosis Skin: No Rash or Ulcers, No Nodules or Sclerosis, - - Dressing to left knee is clena, dry and intact. Neurological: Alert and Oriented x 3 Lines/Tubes/Other Access: Clean, Dry and Intact Peripheral IV Result Diagrams: 05/08/19 05:46 05/06/19 06:08 Assess/Plan/Problems-Billing Assessment: Ms. Gomez is a 78-year-old female with PMH significant for HTN, hypothyroidism , and hyponatremia who is status post left total knee arthroplasty. - Patient Problems (1) Status post total left knee replacement Current Visit: Yes Status: Acute Code(s): Z96.652 - PRESENCE OF LEFT ARTIFICIAL KNEE JOINT SNOMED Code(s): 1313557651402 Comment: POD#3, management per ortho Continue pain mgmt, bowel regimen PT/OT Patient would like to go to [facility] for STR if possible. If not, another facility will do. Does not feel safe to go home from the hospital. -Bolused with 500mls NS due to negative balance, dizziness, lightheadedness and appearing slightly dry. (2) Hypertension Current Visit: No Status: Chronic Code(s): I10 - ESSENTIAL (PRIMARY) HYPERTENSION SNOMED Code(s): 01566248 Comment: -Blood pressure on the softer side this AM, bolused with IV fluids. Continue home amlodipine and losartan (3) Hyponatremia Current Visit: No Status: Chronic Code(s): E87.1 - HYPO-OSMOLALITY AND HYPONATREMIA SNOMED Code(s): 06389418 Comment: Stable, NA 135 (WNL) Continue sodium tablets BID (4) Hypothyroidism Current Visit: No Status: Chronic Code(s): E03.9 - HYPOTHYROIDISM, UNSPECIFIED SNOMED Code(s): 85419926 Comment: Continue home levothyroxine (5) DVT prophylaxis Current Visit: No Status: Acute Code(s): Z29.9 - ENCOUNTER FOR PROPHYLACTIC MEASURES, UNSPECIFIED SNOMED Code(s): 995587820 Comment: Per ortho Continue apixaban and SCD's. (6) Full code status Current Visit: No Status: Acute Code(s): Z78.9 - OTHER SPECIFIED HEALTH STATUS SNOMED Code(s): 426950171 Status and Disposition: Inpatient, dispo per ortho. Attending: Shay Gatica
--- NOTE | 2019-05-08 11:57 | PN ---
Progress Note - Progress Note Date of Service: 05/08/19 SOAP: Subjective: []Pt seen at bedside. She feels well, pain is well controlled. Denies CP, SOB, dizziness, nausea. Objective: [] Gen: NAD, appears well LLE: dressing changed, incision CDI, thigh soft, DF/PF intact, DP2+, sensation intact to light touch distally Calves supple and nontender without erythema, edema or palpable cords Assessment: []sp ltk Plan: []WBAT PT eliquis 2.5 mg po bid needs rehab placement, PMRU unable to offer a bed Vital Signs Temp 97.7 F 05/08/19 11:52 Pulse 69 05/08/19 11:52 Resp 16 05/08/19 11:52 BP 110/37 05/08/19 11:52 Pulse Ox 83 05/08/19 11:52 Intake & Output 05/07/19 05/08/19 05/08/19 18:59 06:59 18:59 Intake Total 960 440 480 Output Total 250 1000 1450 Balance 710 -560 -970 Intake: Oral 960 440 480 Output: Urine 250 1000 1450 Other: Estimated Void Small # Bowel Movements 1 Estimated Stool Amount Small # Voids 1 Laboratory Last Values Hgb 9.6 g/dL (12.0-16.0) L 05/08/19 05:46 Hct 29 % (35-47) L 05/08/19 05:46 Plt Count 245 10^3/uL (150-450) 05/08/19 05:46 MPV 8.0 fL (7.4-10.4) 05/08/19 05:46 Sodium 135 mmol/L (135-145) 05/06/19 06:08 Potassium 4.4 mmol/L (3.5-5.0) 05/06/19 06:08 Chloride 105 mmol/L (101-111) 05/06/19 06:08 Carbon Dioxide 26 mmol/L (22-32) 05/06/19 06:08 Anion Gap 4 mmol/L (2-11) 05/06/19 06:08 BUN 18 mg/dL (6-24) 05/06/19 06:08 Creatinine 0.84 mg/dL (0.51-0.95) 05/06/19 06:08 Est GFR ( Amer) 79.1 (>60) 05/06/19 06:08 Est GFR (Non-Af Amer) 65.4 (>60) 05/06/19 06:08 BUN/Creatinine Ratio 21.4 (8-20) H 05/06/19 06:08 Glucose 116 mg/dL (70-100) H 05/06/19 06:08 Calcium 8.7 mg/dL (8.6-10.3) 05/06/19 06:08 Blood Type A Positive 05/05/19 07:35 Antibody Screen Negative 05/05/19 07:35
[2019-05-08] MEDS ORDERED: Losartan TAB* 25 MG PO SCH (16:57)
[2019-05-08] MEDS ORDERED: oxyCODONE TAB* 5 MG TAB PO PRN (17:16)
[2019-05-09] MEDS: traMADol TAB* 50 MG PO PRN (05:27)
[2019-05-09] MEDS: Acetaminophen TAB* 325 MG PO SCH ×2 (05:27→14:40)
[2019-05-09] MEDS: Levothyroxine TAB* 125 MCG TAB PO SCH (05:28)
[2019-05-09 06:37] LABS: Hematocrit 25 % (35-47); Hemoglobin 8.7 g/dL (12.0-16.0); Mean Platelet Volume 8.3 fL (7.4-10.4); Platelet Count 271 10^3/uL (150-450)
[2019-05-09] MEDS: Sodium Chloride TAB* 1 GM PO SCH (08:14)
[2019-05-09] MEDS: Vitamin THERAPEUTIC TAB PO SCH (08:14)
[2019-05-09] MEDS: Apixaban* 2.5 MG TAB PO SCH (08:15)
[2019-05-09] MEDS: amLODIPine TAB* 5 MG PO SCH (08:15)
[2019-05-09] MEDS: Docusate CAP* 100 MG PO SCH (08:15)
--- NOTE | 2019-05-09 09:14 | PN ---
Subjective Date of Service: 05/09/19 Interval History: Patient seen sitting up in chair. Pain well controlled with tylenol and tramadol. Appears more alert and clear headed. No longer requiring oxygen. Denies headaches, lightheadedness, dizziness, chest pain, palpitations, shortness of breath, abdominal pain, nausea, vomiting, issue with bowel or bladder. Family History: Unchanged from Admission Social History: Unchanged from Admission Past Medical History: Unchanged from Admission Objective Active Medications: Acetaminophen (Tylenol Tab*) 975 mg PO Q8HR [facility] Last Admin: 05/09/19 05:27 Dose: 975 mg Amlodipine Besylate (Norvasc Tab*) 10 mg PO QAM [facility] Last Admin: 05/09/19 08:15 Dose: 10 mg Apixaban (Eliquis*) 2.5 mg PO BID [facility] Last Admin: 05/09/19 08:15 Dose: 2.5 mg Bisacodyl (Dulcolax Supp*) 10 mg SD DAILY PRN PRN Reason: CONSTIPATION Cyclobenzaprine HCl (Flexeril Tab*) 10 mg PO Q6H PRN PRN Reason: SPASMS Last Admin: 05/06/19 03:54 Dose: 10 mg Diphenhydramine HCl (Benadryl Iv*) 25 mg IV Q6H PRN PRN Reason: PRURITIS Diphenhydramine HCl (Benadryl Po*) 25 mg PO Q6H PRN PRN Reason: PRURITIS Docusate Sodium (Colace Cap*) 100 mg PO BID [facility] Last Admin: 05/09/19 08:15 Dose: 100 mg Sodium Chloride (Ns 0.9% 1000 Ml) 1,000 mls @ 100 mls/hr IV PER RATE [facility] Last Admin: 05/06/19 01:02 Dose: 100 mls/hr Lactulose (Lactulose*) 30 ml PO BID PRN PRN Reason: CONSTIPATION Last Admin: 05/07/19 08:12 Dose: 30 ml Levothyroxine Sodium (Synthroid Tab*) 125 mcg PO QAM@0600 [facility] Last Admin: 05/09/19 05:28 Dose: 125 mcg Losartan Potassium (Cozaar Tab*) 50 mg PO QAM [facility] Last Admin: 05/09/19 08:15 Dose: 50 mg Magnesium Hydroxide (Milk Of Magnesia Liq*) 30 ml PO Q6H PRN PRN Reason: CONSTIPATION Morphine Sulfate (Morphine Inj (Syringe))*) 2 mg IV Q4H PRN PRN Reason: Pain - Unrelieved Last Admin: 05/06/19 03:52 Dose: 2 mg Multivitamins (Theragran Tab*) 1 tab PO DAILY [facility] Last Admin: 05/09/19 08:14 Dose: 1 tab Ondansetron HCl (Zofran Inj*) 4 mg IV Q6H PRN PRN Reason: NAUSEA Last Admin: 05/07/19 13:03 Dose: 4 mg Ondansetron HCl (Zofran Odt Tab*) 4 mg PO Q6H PRN PRN Reason: NAUSEA Ondansetron HCl (Zofran Tab*) 4 mg PO Q6H PRN PRN Reason: NAUSEA Oxycodone HCl (Roxycodone Tab*) 10 mg PO Q4H PRN PRN Reason: Pain - Breakthrough Last Admin: 05/07/19 12:34 Dose: 10 mg Oxycodone HCl (Roxycodone Tab*) 5 mg PO Q4H PRN PRN Reason: PAIN - SEVERE Polyethylene Glycol/Electrolytes (Miralax*) 17 gm PO DAILY PRN PRN Reason: Constipation Last Admin: 05/06/19 05:03 Dose: 17 gm Sodium Chloride (Sodium Chloride Tab*) 1 gm PO BID [facility] Last Admin: 05/09/19 08:14 Dose: 1 gm Tramadol HCl (Ultram*) 50 mg PO Q6H PRN PRN Reason: PAIN - MODERATE Last Admin: 05/09/19 05:27 Dose: 50 mg Vital Signs - 8 hr 05/09/19 05/09/19 05/09/19 03:17 05:27 08:07 Temperature 98.1 F Pulse Rate 81 Respiratory 17 16 18 Rate Blood Pressure 145/52 (mmHg) O2 Sat by Pulse 94 Oximetry 05/09/19 05/09/19 08:08 08:13 Temperature 99.8 F 98.2 F Pulse Rate 69 73 Respiratory 16 18 Rate Blood Pressure 126/50 141/52 (mmHg) O2 Sat by Pulse 94 94 Oximetry Oxygen Devices in Use Now: None Appearance: Well developed older woman seen sitting up in chair. No acute distress. Eyes: No Scleral Icterus, PERRLA Ears/Nose/Mouth/Throat: NL Teeth, Lips, Gums, Clear Oropharnyx, Mucous Membranes Moist Neck: NL Appearance and Movements; NL JVP, Trachea Midline Respiratory: Symmetrical Chest Expansion and Respiratory Effort, Clear to Auscultation Cardiovascular: NL Sounds; No Murmurs; No JVD, RRR Abdominal: NL Sounds; No Tenderness; No Distention Lymphatic: No Cervical Adenopathy Extremities: No Clubbing, Cyanosis, - - Trace left lower extremity edema Skin: No Rash or Ulcers, No Nodules or Sclerosis, - - Dressing to left knee is clean, dry and intact. Neurological: Alert and Oriented x 3, NL Sensation Lines/Tubes/Other Access: Clean, Dry and Intact Peripheral IV Result Diagrams: 05/09/19 05:47 05/06/19 06:08 Assess/Plan/Problems-Billing Assessment: Ms. Gomez is a 78-year-old female with PMH significant for HTN, hypothyroidism , and hyponatremia who is status post left total knee arthroplasty. - Patient Problems (1) Status post total left knee replacement Current Visit: Yes Status: Acute Code(s): Z96.652 - PRESENCE OF LEFT ARTIFICIAL KNEE JOINT SNOMED Code(s): 8622891240926 Comment: POD#4, management per ortho Continue pain mgmt, bowel regimen PT/OT -Possible discharge to a STR today. -Oxygen levels had dropped last night, though able to maintain normal O2 this AM on room air. (2) Hypertension Current Visit: No Status: Chronic Code(s): I10 - ESSENTIAL (PRIMARY) HYPERTENSION SNOMED Code(s): 73759620 Comment: -Continue home amlodipine and losartan (3) Hyponatremia Current Visit: No Status: Chronic Code(s): E87.1 - HYPO-OSMOLALITY AND HYPONATREMIA SNOMED Code(s): 64986623 Comment: Stable, NA 135 (WNL) Continue sodium tablets BID (4) Hypothyroidism Current Visit: No Status: Chronic Code(s): E03.9 - HYPOTHYROIDISM, UNSPECIFIED SNOMED Code(s): 33616025 Comment: Continue home levothyroxine (5) DVT prophylaxis Current Visit: No Status: Acute Code(s): Z29.9 - ENCOUNTER FOR PROPHYLACTIC MEASURES, UNSPECIFIED SNOMED Code(s): 532436140 Comment: Per ortho Continue apixaban and SCD's. (6) Full code status Current Visit: No Status: Acute Code(s): Z78.9 - OTHER SPECIFIED HEALTH STATUS SNOMED Code(s): 620428921 Status and Disposition: Inpatient, dispo per ortho. Attending: Charley Morse
--- NOTE | 2019-05-09 10:50 | PN ---
Progress Note - Progress Note Date of Service: 05/09/19 SOAP: Subjective: []Pt seen at bedside. She feels well off of O2. No CP, SOB, dizziness or nausea. Knee pain is well controlled. Objective: []Gen: NAD, appears well LLE: dressing CDI, thigh soft, DF/PF intact, DP2+, sensation intact to light touch distally Calves supple and nontender without erythema, edema or palpable cords Assessment: []sp ltk Plan: []WBAT PT eliquis 2.5 mg po bid raywybrandon today Vital Signs Temp 98.2 F 05/09/19 08:13 Pulse 73 05/09/19 08:13 Resp 18 05/09/19 08:13 BP 141/52 05/09/19 08:13 Pulse Ox 93 05/09/19 10:14 Intake & Output 05/08/19 05/09/19 05/09/19 18:59 06:59 18:59 Intake Total 480 300 480 Output Total 2500 1550 200 Balance -2020 -1250 280 Intake: Oral 480 300 480 Output: Urine 2500 1550 200 Laboratory Last Values Hgb 8.7 g/dL (12.0-16.0) L 05/09/19 05:47 Hct 25 % (35-47) L 05/09/19 05:47 Plt Count 271 10^3/uL (150-450) 05/09/19 05:47 MPV 8.3 fL (7.4-10.4) 05/09/19 05:47 Sodium 135 mmol/L (135-145) 05/06/19 06:08 Potassium 4.4 mmol/L (3.5-5.0) 05/06/19 06:08 Chloride 105 mmol/L (101-111) 05/06/19 06:08 Carbon Dioxide 26 mmol/L (22-32) 05/06/19 06:08 Anion Gap 4 mmol/L (2-11) 05/06/19 06:08 BUN 18 mg/dL (6-24) 05/06/19 06:08 Creatinine 0.84 mg/dL (0.51-0.95) 05/06/19 06:08 Est GFR ( Amer) 79.1 (>60) 05/06/19 06:08 Est GFR (Non-Af Amer) 65.4 (>60) 05/06/19 06:08 BUN/Creatinine Ratio 21.4 (8-20) H 05/06/19 06:08 Glucose 116 mg/dL (70-100) H 05/06/19 06:08 Calcium 8.7 mg/dL (8.6-10.3) 05/06/19 06:08 Blood Type A Positive 05/05/19 07:35 Antibody Screen Negative 05/05/19 07:35
--- NOTE | 2019-05-09 10:59 | DS ---
Orthopedic Discharge Summary - Discharge Summary Date of Admission:05/05/19 Date of Discharge: 05/09/19 Date of Surgery: 05/05/19 Attending Orthopedic Provider: Dr Toussaint Pre-operative Diagnosis: Left knee osteoarthritis Operative Procedure: left total knee replacement Disposition of Patient: [facility] Condition of Patient: stable History: DHARMESH GOMEZ is a 78 year old F with years of increasingly severe left knee pain. Patient has failed conservative management and has elected to undergo a left total knee replacement Hospital Course: DHARMESH was admitted to [facility] on 05/05/19. Patient underwent a left total knee replacement without complication followed by a brief recovery in PACU and transfer to the Short Stay Surgical Unit in stable condition. Our hospitalist service, physical therapy also participated in this patients care. Post-op day 1: patient was alert and in no acute distress. Dressing was clean, dry and intact. Operative extremity dorsiflexion and plantarflexion intact, sensation intact to light touch distally, DP2+. Post- op day two and three: dressing was changed, incision was clean, dry and intact. POD 3 she had Low O2 sat to 83 in presence of oxycodone use, oxycodone was discontinued and she was able to wean from O2 morning of POD 4 with O2 sat 94 on room air and remained asymptomatic. She is using tramadol and tylenol with good pain control. POD 4 dressing CDI, NVI distally. Patient was deemed to be medically and orthopedically stable for discharge to [facility]. Physical therapy goals were met. Home Medications Medication Instructions Recorded Confirmed Type Levothyroxine TAB* [Synthroid 100 125 mcg PO QAM 12/12/12 05/05/19 History MCG TAB*] Calcium Carbonate/Vitamin D3 1 cap PO QAM 02/07/19 05/05/19 History [Calcium 600+D Softgel] Sodium Chloride TAB* 1 gm PO BID #30 tab 02/17/19 05/05/19 Rx Irbesartan [Avapro] 150 mg PO QAM 04/19/19 05/05/19 History amLODIPine TAB* [Norvasc 5 mg TAB*] 10 mg PO QAM 04/19/19 05/05/19 History Acetaminophen TAB* [Tylenol TAB*] 975 mg PO Q8HR tab 05/09/19 Rx Apixaban* [Eliquis*] 2.5 mg PO BID 30 Days #0 tab 12/10/19 Rx Cyclobenzaprine TAB* [Flexeril 10 10 mg PO Q6H PRN tab 05/09/19 Rx MG TAB*] Docusate CAP* [Colace Cap*] 100 mg PO BID PRN cap 05/09/19 Rx traMADol TAB* [Ultram*] 50 mg PO Q6H PRN tab MDD 8 05/09/19 Rx Discharge Instructions following Orthopedic Surgery: Activity: * Weight Bearing as tolerated * Continue physical therapy and occupational therapy exercises as shown * PT at [facility] Wound care: * OK to shower on post-op day 3, no bathing, swimming, or submerging wound. * Use gentle soap, pat dry. Cover with gauze, KAREL wrap or tape. * nurse to do wound checks. Call Orthopedic office for: * Increased drainage * Redness * Increased pain * Fever Go to ER with shortness of breath or chest pain. Diet: * Regular diet * Increase fluids and fiber to prevent constipation. * Continue to use stool softeners, call office if no bowel motion within 48 hours. Medications See Home Medication List in your packet for medications that you should take after discharge. DVT Prophylaxis: Increases bleeding tendency Eliquis Dosin.5 mg, 1 tab every 12 hours x 30 days post op Pain Control: Tramadol 50 mg 1 tab for moderate pain and 2 tabs for severe pain every 6 hours as needed. Max 8 tabs per day. Hold for sedation and wean off as soon as pain allows. Ms Gomez had low O2 sats with narcotic use, limit use as much as possible. Tylenol 650 mg 1 tab every 4 hours as needed for mild pain, max 4000 mg per day. Antibiotics are required prior to any dental work. FOLLOW UP: Follow up with [Norbert] Within 10-14 days, call for appointment Please call our office with any questions or concerns ([phone])
[2019-05-09] MEDS ORDERED: Scopolamine 1.5 mg* PATCH TRANSDERM ONE (15:00)
[2019-05-09 15:10] VITALS: BP 136/50
[2019-05-12] MEDS ORDERED: Scopolamine PATCH Remove* 1 NOTE MISC PATCH OFF ONE (15:00)
== END 2019-05-09 15:20 | DRG 470 ==
LOC: AA 05-05 06:11 → SSU 05-05 11:07
PROVIDERS: ADMIT Orthopaedic Surgery Adult Reconstructive Orthopaedic Surgery; ATTEND Orthopaedic Surgery Adult Reconstructive Orthopaedic Surgery
PROC: 0SRD0J9 Replacement of Left Knee Joint with Synthetic Substitute, Cemented, Open Approach (ICD-10-PCS; principal; 2019-05-05 08:30)
DX: M17.12 Unilateral primary osteoarthritis, left knee (principal); E87.1 Hypo-osmolality and hyponatremia; I10 Essential (primary) hypertension; M25.762 Osteophyte, left knee; E03.9 Hypothyroidism, unspecified; E78.00 Pure hypercholesterolemia, unspecified; Z96.651 Presence of right artificial knee joint; F41.9 Anxiety disorder, unspecified; M16.10 Unilateral primary osteoarthritis, unspecified hip; K57.90 Diverticulosis of intestine, part unspecified, without perforation or abscess without bleeding; T40.2X5A Adverse effect of other opioids, initial encounter; Y92.239 Unspecified place in hospital as the place of occurrence of the external cause; Z79.890 Hormone replacement therapy; Z82.3 Family history of stroke; Z82.49 Family history of ischemic heart disease and other diseases of the circulatory system; Z79.899 Other long term (current) drug therapy
CPT/HCPCS: 36415; 80048; 85014; 85018; 85049; 86850; 86900; 86901; 88305; 88311; 93005; A9270-GY; C1776; G8978-GP-CJ; G8979-GP-CI; J0690; J1100; J2250; J2270; J2405; J2795; J3010; J3490

== ENCOUNTER 2019-02-13 22:42 | Inpatient (IN) | payer MEDICARE, BC ==
--- OUTSIDE RECORDS SUMMARY | 2019-02-13 22:56 | XMS REPORT | Continuity of Care Document ---
:1940 External Reference #:[id number] Author Name Abril Gongora MD Address [address], [place] [address] Care Team Providers Name Role Phone nEriqueta Mas MD - Internal Medicine Care Team Information Senior Javascript Developer Abril Gongora M.D. - Family Medicine Care Team Information Senior Javascript Developer Problems Active Problems Provider Date Localized, primary osteoarthritis Lynn Toussaint M.D. Onset: 02/02/2018 Arthroplasty of knee Lynn Toussaint M.D. Onset: 02/02/2018 Localized, primary osteoarthritis of the pelvic Lynn Toussaint M.D. Onset: 11/2018 region and thigh Social History Type Date Description Comments Sex Unknown ETOH Use Occasionally consumes alcohol Tobacco Use Start: Unknown Patient has never smoked Smoking Status Reviewed: 02/03/19 Patient has never smoked Exercise Type/Frequency Exercises [...] 40MG Lynn Toussaint M.D. 02/02/2018 Injection Immunizations CPT Code Status Date Vaccine Lot # [id number] Given 01/27/2019 Influ Virus Vaccine, Quadrivalent, Split Virus, Im Fluzone not PF Vital Signs Date Vital Result Comment 02/03/2019 9:11am Height 63 inches 5'3" Weight 166.50 lb Heart Rate 74 /min BP Systolic 148 mmHg BP Diastolic 94 mmHg Respiratory Rate 16 /min Pain Level 1 BMI (Body Mass Index) 29.5 kg/m2 01/27/2019 10:17am Height 63 inches 5'3" Weight 168.00 lb Heart Rate 81 /min BP Systolic 170 mmHg BP Diastolic 96 mmHg Body Temperature 97.4 F O2 % BldC Oximetry 95 % BMI (Body Mass Index) 29.8 kg/m2 Results Test Date Facility Test Result H/L Range Note Laboratory test [place] TSH (Thyroid Stim 1.18 Normal 0.34-5.[address] Horm) mcIU/[place] [address] [phone] Lipid Profile [facility] Triglycerides 93 mg/dL 1 (Trig/Chol/HDL) [address] [place] [address] [phone] Cholesterol 239 mg/dL 2 HDL Cholesterol 57.3 mg/dL 3 LDL Cholesterol 163 mg/dL 4 Laboratory test 01/28/2019 [place] Hemoglobin A1c 5.8 % High 4.0-5.6 5 finding 101 (Glyco HGB) [place] [address] [phone] Basic Metabolic 01/28/2019 [place] Sodium 131 Low 135-[address] mmol/[place] [address] [phone] Potassium 4.7 mmol/L Normal 3.5-5.0 Chloride 95 mmol/L Low 101-111 Co2 Carbon Dioxide 27 mmol/L Normal 22-32 Anion Gap 9 mmol/L Normal 2-11 Glucose 92 mg/dL Normal 70-100 Blood Urea Nitrogen 22 mg/dL Normal 6-24 Creatinine 0.74 mg/dL Normal 0.51-0.95 BUN/Creatinine Ratio 29.7 High 8-20 Calcium 9.7 mg/dL Normal 8.6-10.3 Egfr Non- 75.7 >60 Egfr 91.6 >60 6 CBC Auto 01/28/2019 [facility] White Blood 7.8 10^3/uL Normal 3.5-10.[address] [place] [address] [phone] Red Blood Count 3.61 10^6/uL Low 3.70-4.87 Hemoglobin 11.6 g/dL Low 12.0-16.0 Hematocrit 34 % Low 35-47 Mean Corpuscular Volume 93 fL Normal 80-97 Mean Corpuscular Hemoglobin 32 pg High 27-31 Mean Corpuscular HGB Conc 35 g/dL Normal 31-36 Red Cell Distribution Width 14 % Normal 10-15 Platelet Count 377 10^3/uL Normal 150-450 Mean Platelet Volume 7.7 fL Normal 7.4-10.4 Abs Neutrophils 4.7 10^3/uL Normal 1.5-7.7 Abs Lymphocytes 2.0 10^3/uL Normal 1.0-4.8 Abs Monocytes 0.9 10^3/uL High 0-0.8 Abs Eosinophils 0.1 10^3/uL Normal 0-0.6 Abs Basophils 0.0 10^3/uL Normal 0-0.2 Abs Nucleated RBC 0.0 10^3/uL Granulocyte % 60.4 % Lymphocyte % 25.3 % Monocyte % 12.1 % Eosinophil % 1.6 % Basophil % 0.6 % Nucleated Red Blood Cells % 0.0 Inr/Protime 01/28/2019 [place] Inr 0.94 Normal 0.82-1.[address] [place] [address] [phone] Laboratory test 01/28/2019 [place] Partial 28.7 Normal 26.0 -38.[address] [place] [address] Time PTT [phone] Order 01/27/2019 [facility] In-House EKG <pending> 1 Desirable: <150 Borderline High: 150-199 High: 200-499 Very High: >500 2 Desirable: <200 Borderline High: 200-239 High: >239 3 Low: <40 Desirable: 40-60 High: >60 4 Desirable: <100 Near Optimal: 100-129 Borderline High: 130-159 High: 160-189 Very High: >189 5 Therapeutic target for the treatment of diabetes mellitus patients is <7% HBA1C, and in selective patients <6.0%. Please refer to [place] [employer] diabetic care guidelines for further information. 6 Because ethnic data is not always readily available, this report includes an eGFR for both -Americans and non- Americans. The National Kidney Disease Education Program (NKDEP) does not endorse the use of the MDRD equation for patients that are not between the ages of 18 and 70, are , have extremes of body size, muscle mass, or nutritional status, or are non- or non-. According to the National Kidney Foundation, irrespective of diagnosis, the stage of the disease is based on the level of kidney function: Stage Description GFR(mL/min/1.73 m(2)) 1 Kidney damage with normal or decreased GFR 90 2 Kidney damage with mild decrease in GFR 60-89 3 Moderate decrease in GFR 30-59 4 Severe decrease in GFR 15-29 5 Kidney failure <15 (or dialysis) 7 Standard intensity warfarin therapeutic range: 2.0-3.0 High intensity warfarin therapeutic range: 2.5-3.5 Procedures Date Code Description Status 01/27/2019 47782 EKG Tracing & Interpretation Completed 12/26/2018 Inj/Aspir Major JT Or Bursa W/ US Completed 11/18/2018 Inject/Drain Joint/Bursa Major W/O US Completed 11/11/2018 Inject/Drain Joint/Bursa Major W/O US Completed 11/04/2018 Inject/Drain Joint/Bursa Major W/O US Completed 09/07/2018 Inject/Drain Joint/Bursa Major W/O US Completed Medical Devices Description No Information Available Encounters Type Date Location Provider Dx Diagnosis Office Visit 01/10/2019 [facility] Internal Christianne Bustamante, I10 Essential ( primary) 10:20a Medicine - Suite DO hypertension R E03.9 Hypothyroidism, unspecified E87.5 Hyperkalemia Office Visit 01/04/2019 9:30a [facility] Lynn Toussaint, M25.551 Pain in right [facility] M.[facility]. hip M16.11 Unilateral primary osteoarthritis, right hip W19.xxxD Unspecified fall, subsequent encounter Office Visit 12/26/2018 8:45a [facility] Lynn Toussaint, M25.551 Pain in [...] M.D. 12/26/2018 W19.xxxA Unspecified fall, initial encounter Lynnsae Toussaint, M.D. 11/18/2018 M25.562 Pain in left knee Lynn Norbert, M.D. 11/18/2018 M25.462 Effusion, left knee Lynn Norbert, M.D. 11/18/2018 M17.12 Unilateral primary osteoarthritis, left knee Lynn Norbert , M.D. 11/18/2018 M54.5 Low back pain Lynnsae Toussaint, M.D. 11/11/2018 M25.562 Pain in left knee [...] primary osteoarthritis, left knee Lynn Norbert , M.DNegrito Plan of Treatment Future Appointment(s):02/20/2019 3:00 pm - Lynn Toussaint M.D. at [facility]A.02/09/2019 7:30 am - PREETHI Rush at [facility].A.02/09/2019 7:30 am - Edmund Zepeda PA-C at [facility]02/09/2019 7:30 am - Lynn Toussaint M.D. at [facility]06/27/2019 10:00 am - Mindy Ramirez MD at [facility] Dermatology Functional Status Description No Information Available Mental Status Description No Information Available Referrals Description No Information Available
--- OUTSIDE RECORDS SUMMARY | 2019-02-13 22:56 | XMS REPORT | Continuity of Care Document ---
:1940 External Reference #:[id number] Author Name Abril Gongora MD (transmitted by agent of provider Isa Means) Address [address] [place] [address] Care Team Providers Name Role Phone Enriqueta Mas MD - Internal Medicine Care Team Information Men'S Garment Fitter Abril Gongora M.D. - Family Medicine Care Team Information Men'S Garment Fitter [phone] Problems Active Problems Provider Date Localized, primary osteoarthritis Lynn Toussaint M.D. Onset: 02/02/2018 Arthroplasty of knee Lynn Toussaint M.D. Onset: 02/02/2018 Localized, primary osteoarthritis of the pelvic Lynn Toussaint M.D. Onset: 11/2018 region and thigh Social History Type Date Description Comments Sex Unknown ETOH Use Occasionally consumes alcohol Tobacco Use Start: Unknown Patient has never smoked Smoking Status Reviewed: 02/13/19 Patient has never smoked Exercise Type/Frequency Exercises regularly Allergies, Adverse Reactions, Alerts Description No Known Drug Allergies Medications Active Medications SIG Qnty Indications Ordering Provider Date Amlodipine Besylate 1 by mouth every 30tabs I10 Abril Gongora MD 02/13/2019 10mg day Tablets Losartan 1 by mouth every Unknown Potassium/Hydrochlorot day hiazide 100-25mg Tablets Levothyroxine Sodium 1 by mouth every Unknown day 125mcg Tablets Acetaminophen 2 tablets by Unknown 325mg mouth every 6 Tablets hours as needed for pain/fever Probiotic Colon once a day Unknown Support Capsules History Medications Clonidine HCL 1 by mouth 1-2x/day 14tabs I10 Abril Gongora MD 01/27/2019 - as needed for 02/13/2019 0.1mg Tablets uncontrolled hypertension Medications Administered in Office Medication SIG Qnty [...] CPT Code Status Date Vaccine Lot # [id number] Given 01/27/2019 Influ Virus Vaccine, Quadrivalent, Split Virus, Im Fluzone not PF Vital Signs Date Vital Result Comment 02/13/2019 3:10pm Height 63 inches 5'3" Weight 167.00 lb Heart Rate 73 /min BP Systolic Sitting 150 mmHg Rue reg cuff BP Diastolic Sitting 98 mmHg Rue reg cuff O2 % BldC Oximetry 97 % BMI (Body Mass Index) 29.6 kg/m2 02/03/2019 9:11am Height 63 inches 5'3" Weight 166.50 lb Heart Rate 74 /min BP Systolic 148 mmHg BP Diastolic 94 mmHg Respiratory Rate 16 /min Pain Level 1 BMI (Body Mass Index) 29.5 kg/m2 Results Test Date Facility Test Result H/L Range Note Urinalysis Profile 02/07/2019 [facility] Urine Color Yellow [address] [place] [address] [phone] Urine Appearance Cloudy Urine Specific [place] 1.017 Normal 1.010-1.030 Urine pH 6.0 Normal 5-9 Urine Urobilinogen Negative Negative Urine Ketones Negative Negative Urine Protein Negative Negative Urine Leukocytes 3+ Abnormal Negative Urine Blood 1+ Abnormal Negative Urine Nitrite Negative Negative Urine Bilirubin Negative Negative Urine Glucose Negative Negative Urine White Blood Cell 3+(>20/hpf) Abnormal Absent Urine Red Blood Cell 1+(3-5/hpf) Abnormal Absent Urine Bacteria Absent Absent Urine Squamous Epithelial Cell Present Abnormal Absent Comp Metabolic Panel 02/07/2019 [facility] Sodium 122 mmol/L Low 135-145 [address] [place] [address] [phone] Potassium 4.4 mmol/L Normal 3.5-5.0 Chloride 88 mmol/L Low 101-111 Co2 Carbon Dioxide 29 mmol/L Normal 22-32 Anion Gap 5 mmol/L Normal 2-11 Glucose 82 mg/dL Normal 70-100 Blood Urea Nitrogen 23 mg/dL Normal 6-24 Creatinine 0.77 mg/dL Normal 0.51-0.95 BUN/Creatinine Ratio 29.9 High 8-20 Calcium 9.2 mg/dL Normal 8.6-10.3 Total Protein 6.9 g/dL Normal 6.4-8.9 Albumin 4.2 g/dL Normal 3.2-5.2 Globulin 2.7 g/dL Normal 2-4 Albumin/Globulin Ratio 1.6 Normal 1-3 Total Bilirubin 0.30 mg/dL Normal 0.2-1.0 Alkaline Phosphatase 66 U/L Normal 34-104 Alt 11 U/L Normal 7-52 Ast 16 U/L Normal 13-39 Egfr Non- 72.3 >60 Egfr 87.5 >60 1 Type & Screen 02/07/2019 [facility] Patient Blood Type A Positive [address] [place] [address] [phone] Antibody Screen NEGATIVE Urine Culture And 02/07/2019 [facility] Urine Culture SEE RESULT [address] [place] [address] [phone] Laboratory test 01/28/2019 [facility] TSH (Thyroid Stim 1.18 Normal 0.3 finding Horm) mcIU/mL 4-5 [place] [address] .60 [phone] Lipid Profile 01/28/2019 [facility] Triglycerides 93 mg/dL 3 (Trig/Chol/HDL) [address] [place] [address] [phone] Cholesterol 239 mg/dL 4 HDL Cholesterol 57.3 mg/dL 5 LDL Cholesterol 163 mg/dL 6 Laboratory test 01/28/2019 [facility] Hemoglobin A1c 5.8 % High 4.0-5.6 7 finding 101 (Glyco HGB) [place] [address] [phone] Basic Metabolic 01/28/2019 [facility] Sodium 131 Low 135-[address] mmol/[place] [address] [phone] Potassium 4.7 mmol/L Normal 3.5-5.0 Chloride 95 mmol/L Low 101-111 Co2 Carbon Dioxide 27 mmol/L Normal 22-32 Anion Gap 9 mmol/L Normal 2-11 Glucose 92 mg/dL Normal 70-100 Blood Urea Nitrogen 22 mg/dL Normal 6-24 Creatinine 0.74 mg/dL Normal 0.51-0.95 BUN/Creatinine Ratio 29.7 High 8-20 Calcium 9.7 mg/dL Normal 8.6-10.3 Egfr Non- 75.7 >60 Egfr 91.6 >60 8 CBC Auto 01/28/2019 [facility] White Blood 7.8 10^3/uL Normal 3.5-10.[address] [place] [address] [phone] Red Blood Count 3.61 10^6/uL Low 3.70-4.87 [...] Red Blood Cells % 0.0 Inr/Protime 01/28/2019 [facility] Inr 0.94 Normal 0.82-1.[address] [place] [address] [phone] Laboratory test 01/28/2019 [facility] Partial 28.7 Normal 26.0 -38.[address] [address] Time PTT [phone] Order 01/27/2019 [facility] In-House EKG <pending> 1 Because ethnic data is not always readily [...] 15-29 5 Kidney failure <15 (or dialysis) 2 SEE RESULT BELOW Name: KASSI ALBRIGHT : [address]: Lynn Toussaint MD Acct: [id number] Unit: [id number] AGE: 78 Location: [facility] Re02/07/19 SEX: F Status: REG REF SPEC: [id number] [place]: 02/07/19-[address]: Lynn Toussaint MD REQ: [id number] RECD: 02/07/19 STATUS: COMP _ SOURCE: URINE SPDESC: ORDERED: Urine Culture QUERIES: Urine Source: Clean Catch Procedure Result Reported Site Urine Culture Final 02/08/19- 1249 ML No Growth (<1,000 CFU/mL) * ML - Main Lab . END OF REPORT DEPARTMENT OF PATHOLOGY, [address] [place] [address] Cong Willis M.D. Director [facility] # [id number] 3 Desirable: <150 Borderline High: 150-199 High: 200-499 Very High: >500 4 Desirable: <200 Borderline High: 200-239 High: >239 5 Low: <40 Desirable: 40-60 High: >60 6 Desirable: <100 Near Optimal: 100-129 Borderline High: 130-159 High: 160-189 Very High: >189 7 Therapeutic target for the treatment of diabetes mellitus patients is <7% HBA1C, and in selective patients <6.0%. Please refer to [place] [employer] diabetic care guidelines for further information. 8 Because ethnic data is not always readily [...] 15-29 5 Kidney failure <15 (or dialysis) 9 Standard intensity warfarin therapeutic range: 2.0-3.0 High intensity warfarin therapeutic range: 2.5-3.5 Procedures Date Code Description Status 01/27/2019 69321 EKG Tracing & Interpretation Completed 12/26/201818671 Inj/Aspir Major JT Or Bursa W/ US Completed 11/18/2018 04443 Inject/Drain Joint/Bursa Major W/O US Completed 11/11/2018 44683 Inject/Drain Joint/Bursa Major W/O US Completed 11/04/2018 74369 Inject/Drain Joint/Bursa Major W/O US Completed 09/07/2018 43485 Inject/Drain Joint/Bursa Major W/O US Completed Medical Devices Description No Information Available Encounters Type Date Location Provider Dx Diagnosis Office Visit 01/10/2019 [facility] Christianne Bustamante, I10 Essential ( primary) [...] left knee Assessments Date Code Description Provider 02/13/2019 E87.1 Hypo-osmolality and hyponatremia Abril Gongora MD 02/13/2019 I10 Essential (primary) hypertension Abril Gongora MD 01/27/2019 Z01.818 Encounter for other preprocedural examination Abril Gongora MD 01/27/2019 M17.12 Unilateral primary osteoarthritis, left knee Abril Gongora MD 01/27/2019 I10 Essential (primary) hypertension Abril Gongora MD 01/10/2019 I10 Essential (primary) hypertension Christianne Bustamante, DO 01/10/2019 E03.9 Hypothyroidism, unspecified Christianne Bustamante, DO 01/10/2019 E87.5 Hyperkalemia Christianne Bustamante, 01/04/2019 M25.551 Pain in right hip Lynn [...] , M.D. 11/18/2018 M54.5 Low back pain Lynn [...] Norbert , M.D. Plan of Treatment Future Appointment(s):03/01/2019 2:00 pm - Abril Gongora MD at [facility] Internal Medicine - Ccm[facility]06/27/2019 10:00 am - Mindy Ramirez MD at [facility] [id number]/16 /2019 - Abril Gongora MDE87.1 Hypo-osmolality and hyponatremiaFollow up:2 wksI10 Essential (primary) hypertensionNew Medication:Amlodipine Besylate 10 mg - 1 by mouth every day Functional Status Description No Information Available Mental Status Description No Information Available Referrals Description No Information Available
[2019-02-14 00:02] LABS: ABS Basophils 0.1 10^3/ul (0-0.2); ABS Eosinophils 0.1 10^3/ul (0-0.6); ABS Lymphocytes 2.8 10^3/ul (1.0-4.8); ABS Neutrophils 3.9 10^3/ul (1.5-7.7); Eosinophil % 0.9 %; Hematocrit 35 % (35-47); Hemoglobin 12.3 g/dL (12.0-16.0); Lymphocyte % 35.8 %; Mean Corpuscular HGB Conc 35 g/dL (31-36); Mean Corpuscular Hemoglobin 32 pg (27-31); Mean Corpuscular Volume 91 fL (80-97); Mean Platelet Volume 7.2 fL (7.4-10.4); Nucleated Red Blood Cells % 0.1; Platelet Count 331 10^3/uL (150-450); Red Blood Count 3.89 10^6 /uL (3.70-4.87); Red Cell Distribution Width 14 % (10-15); White Blood Count 7.9 10^3/uL (3.5-10.8)
[2019-02-14 00:07] LABS: BUN/Creatinine Ratio 21.3 (8-20); Calcium 9.6 mg/dL (8.6-10.3); EGFR African American 83.7 (>60); EGFR Non-African American 69.2 (>60)
[2019-02-14] MEDS ORDERED: NS 0.9% 1000 ML** 1,000 ML IV ONE (02:12)
[2019-02-14] MEDS ORDERED: Acetaminophen TAB* 325 MG PO PRN ×2 (05:07→05:54)
[2019-02-14] MEDS: amLODIPine TAB* 5 MG PO SCH (05:07)
[2019-02-14 05:14] LABS: Urine Appearance Cloudy; Urine Bacteria 1+ (Absent); Urine Bilirubin Negative (Negative); Urine Blood 1+ (Negative); Urine Color Yellow; Urine Glucose Negative (Negative); Urine Ketones 1+ (Negative); Urine Nitrite Negative (Negative); Urine Protein Negative (Negative); Urine Red Blood Cell 1+(3-5/hpf) (Absent); Urine Specific Gravity 1.013 (1.010-1.030); Urine Squamous Epithelial Cell Present (Absent); Urine Urobilinogen Negative (Negative); Urine White Blood Cell 3+(>20/hpf) (Absent)
[2019-02-14] MEDS ORDERED: NS 0.9% 1000 ML** 1,000 ML IV SCH (05:15)
[2019-02-14 05:23] LABS: Urine Potassium Concentration 69.7 mmol/L
[2019-02-14 05:31] LABS: BUN/Creatinine Ratio 20.6 (8-20); Calcium 8.5 mg/dL (8.6-10.3); EGFR African American 110.3 (>60); EGFR Non-African American 91.2 (>60); Potassium 3.6 mmol/L (3.5-5.0)
--- NOTE | 2019-02-14 06:32 | ED ---
Complex/Multi-Sys Presentation - HPI Summary HPI Summary: Patient is a 78 y/o F presenting to [facility] for evaluation of abnormal blood work done earlier today. She had bloodwork done last week in anticipation of knee surgery. Sodium today was 117. Surgery was cancelled. She denies Sx, no AMS, seizures, weakness, and pain are reported. Home medications and allergies are reviewed. - History Of Current Complaint Chief Complaint: EDGeneral Time Seen by Provider: 02/14/19 02:11 Hx Obtained From: Patient Onset/Duration: Still Present Timing: Constant Severity Currently: None Location: Negative Associated Signs And Symptoms: Positive: Other - no AMS, seizures, weakness, and pain are reported; concerns of low sodium - Allergies/Home Medications Allergies/Adverse Reactions: Allergies Allergy/AdvReac Type Severity Reaction Status Date / Time No Known Allergies Allergy Verified 02/13/19 22:51 Home Medications: Home Medications Naproxen 220 mg 1 tab PO SEE INSTRUCTIONS 02/14/19 [History Confirmed 02/14/19] PMH/Surg Hx/FS Hx/Imm Hx Endocrine/Hematology History: Reports: Hx Thyroid Disease - hypothyroid Denies: Hx Diabetes Cardiovascular History: Reports: Hx Hypertension Denies: Other Cardiovascular Problems/Disorders Respiratory History: Denies: Hx Asthma, Hx Chronic Obstructive Pulmonary Disease (COPD) GI History: Denies: Hx Ulcer Musculoskeletal History: Reports: Hx Arthritis - KNEES Sensory History: Reports: Hx Cataracts - GABINO, Hx Contacts or Glasses - GLASSES Denies: Hx Hearing Aid Opthamlomology History: Reports: Hx Cataracts - GABINO, Hx Contacts or Glasses - GLASSES - Surgical History Surgery Procedure, Year, and Place: knee replacement 2012 Hx Anesthesia Reactions: No Infectious Disease History: No Infectious Disease History: Denies: Hx Hepatitis, Hx Human Immunodeficiency Virus (HIV), Traveled Outside the [place] in Last 30 Days - Family History Known Family History: Negative: Seizure Disorder - Social History Alcohol Use: Occasionally Alcohol Amount: 2-3 PER WEEK Substance Use Type: Reports: None Smoking Status (MU): Never Smoked Tobacco Review of Systems Constitutional: Other - positive - low sodium Neurological: Other - negative - seizures, AMS Negative: Weakness All Other Systems Reviewed And Are Negative: Yes Physical Exam - Summary Physical Exam Summary: Appearance: Well-appearing, Well-nourished, lying in bed comfortably Skin: Warm, dry, no obvious rash Eyes: sclera anicteric, no conjunctival pallor ENT: mucous membranes moist, pharynx appears normal Neck: Supple, nontender Respiratory: Clear to auscultation, no signs of respiratory distress Cardiovascular: Normal S1, S2. No murmurs. Normal distal pulses in tibial and radial bilaterally. Abdomen: Soft, nontender, normal active bowel sounds present Musculoskeletal: Normal, Strength/ROM Intact Neurological: A&Ox3, awake and alert, mentation is normal, speech is fluent and appropriate Psychiatric: affect is normal, does not appear anxious or depressed Triage Information Reviewed: Yes Vital Signs On Initial Exam: Initial Vitals Temp Pulse Resp BP Pulse Ox 98.4 F 71 15 198/119 94 02/13/19 22:49 02/13/19 22:49 02/13/19 22:49 02/13/19 22:49 02/13/19 22:49 Vital Signs Reviewed: Yes Diagnostics - Vital Signs Vital Signs Temp Pulse Resp BP Pulse Ox 02/14/19 05:00 69 20 95 02/14/19 04:41 64 23 197/94 93 02/14/19 04:11 63 16 194/79 98 02/14/19 04:00 66 16 94 02/14/19 03:41 68 16 206/105 97 02/14/19 03:11 78 18 216/118 94 02/14/19 03:00 67 19 98 02/14/19 02:49 71 24 198/68 98 02/14/19 02:11 75 15 196/112 99 02/14/19 02:00 72 20 99 02/14/19 01:42 77 224/98 98 02/14/19 01:41 71 97 02/13/19 22:49 98.4 F 71 15 198/119 94 - Laboratory Lab Results: Lab Results 02/13/19 02/13/19 02/13/19 Range/Units 23:44 23:44 23:44 WBC 7.9 (3.5-10.8) 10^3/uL RBC 3.89 (3.70-4.87) 10^6 /uL Hgb 12.3 (12.0-16.0) g/dL Hct 35 (35-47) % MCV 91 (80-97) fL MCH 32 H (27-31) pg MCHC 35 (31-36) g/dL RDW 14 (10-15) % Plt Count 331 (150-450) 10^3/uL MPV 7.2 L (7.4-10.4) fL Neut % (Auto) 50.1 % Lymph % (Auto) 35.8 % Tate % (Auto) 12.4 % Eos % (Auto) 0.9 % Baso % (Auto) 0.8 % Absolute Neuts (auto) 3.9 (1.5-7.7) 10^3/ul Absolute Lymphs (auto) 2.8 (1.0-4.8) 10^3/ul Absolute Monos (auto) 1.0 H (0-0.8) 10^3/ul Absolute Eos (auto) 0.1 (0-0.6) 10^3/ul Absolute Basos (auto) 0.1 (0-0.2) 10^3/ul Absolute Nucleated RBC 0.0 10^3/ul Nucleated RBC % 0.1 Sodium 118 L* (135-145) mmol/L Potassium 4.0 (3.5-5.0) mmol/L Chloride 83 L (101-111) mmol/L Carbon Dioxide 27 (22-32) mmol/L Anion Gap 8 (2-11) mmol/L BUN 17 (6-24) mg/dL Creatinine 0.80 (0.51-0.95) mg/dL Est GFR ( Amer) 83.7 (>60) Est GFR (Non-Af Amer) 69.2 (>60) BUN/Creatinine Ratio 21.3 H (8-20) Glucose 112 H (70-100) mg/dL Serum Osmolality 262 L (275-295) mOsm/kg Calcium 9.6 (8.6-10.3) mg/dL TSH (0.34-5.60) mcIU/mL Urine Color Urine Appearance Urine pH (5-9) Ur Specific [place] (1.010-1.030) Urine Protein (Negative) Urine Ketones (Negative) Urine Blood (Negative) Urine Nitrate (Negative) Urine Bilirubin (Negative) Urine Urobilinogen (Negative) Ur Leukocyte Esterase (Negative) Urine WBC (Auto) (Absent) Urine RBC (Auto) (Absent) Ur Squamous Epith Cells (Absent) Urine Bacteria (Absent) Urine Osmolality (100-1150) mOsm/kg U Sodium Concentration mmol/L Urine Potassium mmol/L Ur Chloride Concentrat mmol/L Urine Glucose (Negative) 02/14/19 02/14/19 02/14/19 Range/Units 01:45 01:45 01:45 WBC (3.5-10.8) 10^3/uL RBC (3.70-4.87) 10^6 /uL Hgb (12.0-16.0) g/dL Hct (35-47) % MCV (80-97) fL MCH (27-31) pg MCHC (31-36) g/dL RDW (10-15) % Plt Count (150-450) 10^3/uL MPV (7.4-10.4) fL Neut % (Auto) % Lymph % (Auto) % Tate % (Auto) % Eos % (Auto) % Baso % (Auto) % Absolute Neuts (auto) (1.5-7.7) 10^3/ul Absolute Lymphs (auto) (1.0-4.8) 10^3/ul Absolute Monos (auto) (0-0.8) 10^3/ul Absolute Eos (auto) (0-0.6) 10^3/ul Absolute Basos (auto) (0-0.2) 10^3/ul Absolute Nucleated RBC 10^3/ul Nucleated RBC % Sodium (135-145) mmol/L Potassium (3.5-5.0) mmol/L Chloride (101-111) mmol/L Carbon Dioxide (22-32) mmol/L Anion Gap (2-11) mmol/L BUN (6-24) mg/dL Creatinine (0.51-0.95) mg/dL Est GFR ( Amer) (>60) Est GFR (Non-Af Amer) (>60) BUN/Creatinine Ratio (8-20) Glucose (70-100) mg/dL Serum Osmolality (275-295) mOsm/kg Calcium (8.6-10.3) mg/dL TSH (0.34-5.60) mcIU/mL Urine Color Yellow Urine Appearance Cloudy Urine pH 7.0 (5-9) Ur Specific [place] 1.013 (1.010-1.030) Urine Protein Negative (Negative) Urine Ketones 1+ A (Negative) Urine Blood 1+ A (Negative) Urine Nitrate Negative (Negative) Urine Bilirubin Negative (Negative) Urine Urobilinogen Negative (Negative) Ur Leukocyte Esterase 3+ A (Negative) Urine WBC (Auto) 3+(>20/hpf) A (Absent) Urine RBC (Auto) 1+(3-5/hpf) A (Absent) Ur Squamous Epith Cells Present A (Absent) Urine Bacteria 1+ A (Absent) Urine Osmolality 474 (100-1150) mOsm/kg U Sodium Concentration 90 mmol/L Urine Potassium 69.7 mmol/L Ur Chloride Concentrat 109 mmol/L Urine Glucose Negative (Negative) 02/14/19 02/14/19 Range/Units 04:58 04:58 WBC (3.5-10.8) 10^3/uL RBC (3.70-4.87) 10^6 /uL Hgb (12.0-16.0) g/dL Hct (35-47) % MCV (80-97) fL MCH (27-31) pg MCHC (31-36) g/dL RDW (10-15) % Plt Count (150-450) 10^3/uL MPV (7.4-10.4) fL Neut % (Auto) % Lymph % (Auto) % Tate % (Auto) % Eos % (Auto) % Baso % (Auto) % Absolute Neuts (auto) (1.5-7.7) 10^3/ul Absolute Lymphs (auto) (1.0-4.8) 10^3/ul Absolute Monos (auto) (0-0.8) 10^3/ul Absolute Eos (auto) (0-0.6) 10^3/ul Absolute Basos (auto) (0-0.2) 10^3/ul Absolute Nucleated RBC 10^3/ul Nucleated RBC % Sodium 118 L* (135-145) mmol/L Potassium 3.6 (3.5-5.0) mmol/L Chloride 87 L (101-111) mmol/L Carbon Dioxide 24 (22-32) mmol/L Anion Gap 7 (2-11) mmol/L BUN 13 (6-24) mg/dL Creatinine 0.63 (0.51-0.95) mg/dL Est GFR ( Amer) 110.3 (>60) Est GFR (Non-Af Amer) 91.2 (>60) BUN/Creatinine Ratio 20.6 H (8-20) Glucose 108 H (70-100) mg/dL Serum Osmolality (275-295) mOsm/kg Calcium 8.5 L (8.6-10.3) mg/dL TSH 0.88 (0.34-5.60) mcIU/mL Urine Color Urine Appearance Urine pH (5-9) Ur Specific [place] (1.010-1.030) Urine Protein (Negative) Urine Ketones (Negative) Urine Blood (Negative) Urine Nitrate (Negative) Urine Bilirubin (Negative) Urine Urobilinogen (Negative) Ur Leukocyte Esterase (Negative) Urine WBC (Auto) (Absent) Urine RBC (Auto) (Absent) Ur Squamous Epith Cells (Absent) Urine Bacteria (Absent) Urine Osmolality (100-1150) mOsm/kg U Sodium Concentration mmol/L Urine Potassium mmol/L Ur Chloride Concentrat mmol/L Urine Glucose (Negative) Result Diagrams: 02/16/19 08:32 02/17/19 06:36 Lab Statement: Any lab studies that have been ordered have been reviewed, and results considered in the medical decision making process. Complex Multi-Symp Course/Dx Course Of Treatment: Patient is a 78 y/o F presenting to [facility] for evaluation of abnormal blood work done earlier today. She had bloodwork done last week in anticipation of knee surgery. Sodium today was 117. Surgery was cancelled. She denies Sx, no AMS, seizures, weakness, and pain are reported. Physical exam is unremarkable. Bloodwork was obtained. Sodium was 118. Other abnormal values include MCH 32, MPV 7.2, absolute monos 1, chloride 83, BUN/creatinine ratio 21.3, glucose 112, serum osmolality 262. UA showed 1+ ketones, blood, 3+ leukocyte esterase, WBC, 1+ RBC, present squamous epith cells present, 1+ bacteria. During ED course, patient received fluids. Patient's case was discussed with Dr. Adames, Dr. Adames accepts for admission. - Diagnoses Provider Diagnoses: Hyponatremia - Physician Notifications Discussed Care Of Patient With: Javier Adames Time Discussed With Above Provider: 05:05 Instructed by Provider To: Other - Patient's case was discussed with Dr. Adames, Dr. Adames accepts for admission. Admission order placed at 0505 Discharge ED - Sign-Out/Discharge Documenting (check all that apply): Patient Departure - admit All imaging exams completed and their final reports reviewed: No Studies Patient Received Moderate/Deep Sedation with Procedure: No - Discharge Plan Condition: Good Disposition: ADMITTED TO [facility] - Billing Disposition and Condition Condition: GOOD Disposition: Admitted to [facility] - Attestation Statements Document Initiated by Angelica: Yes Documenting Scribe: JEROD WOMACK Provider For Whom Angelica is Documenting (Include Credential): MD Mayra HILLibsoledad Attestation: JEROD James, scribed for OCTAVIA BARKER MD on 02/18/19 at 0629. Scribe Documentation Reviewed: Yes Provider Attestation: The documentation as recorded by the JEROD fermin accurately reflects the service I personally performed and the decisions made by me, OCTAVIA BARKER MD Status of Scribe Document: Viewed
[2019-02-14] MEDS: Levothyroxine TAB* 125 MCG TAB PO SCH (07:35)
[2019-02-14] MEDS: Enoxaparin(*) 40 MG/0.4 ML SYR SUBCUT SCH (07:35)
[2019-02-14] MEDS: hydrALAZINE TAB* 25 MG PO SCH ×3 (08:40→21:23)
[2019-02-14] MEDS: Calcium/Vitamin D TAB 250/125* TAB PO SCH (08:40)
--- NOTE | 2019-02-14 08:42 | HP ---
CC: Dr. Abril Gongora ADMISSION HISTORY AND PHYSICAL: DATE OF ADMISSION: 02/14/19 CHIEF COMPLAINT: Abnormal labs. HISTORY OF PRESENT ILLNESS: This is a 78-year-old female with past medical history of hypertension, hypothyroidism, and osteoarthritis, came in after she was noted to have hyponatremia. The patient stated that she was in her usual state of health up until 2 weeks ago when she decided that she would like to stay healthy as her blood pressure was still elevated. She cut down her salt intake quite drastically and has increased her free water intake and was scheduled to get left total knee replacement; however, preoperative labs suggest the patient having hyponatremia with a sodium of 122. A subsequent lab testing still showed the sodium to be even lower at 117 and repeat testing upon arrival to the ER was still showing a sodium of 118. So, hospitalist team was consulted to admit the patient to the hospital. The patient offers no other complaints except for some mild lightheadedness upon arrival, but that had resolved after she received a liter of normal saline in the ER. The patient otherwise offers no complaints of chest pain. No urinary burning sensation or pain with urination, although she did notice some increased urination, especially during night. She otherwise offered no change in her prescription medications except for some clonidine, which was added as needed for her high blood pressure. Denies any other nausea, vomiting, or diarrhea, any other sick contacts, fever, or chills. PAST MEDICAL HISTORY: As mentioned, hypertension, hypothyroidism, diverticulitis, osteoarthritis. PAST SURGICAL HISTORY: Includes right total knee arthroplasty in 2011, muscle repair on the right eye when she was in her 30s, tonsillectomy when she was much younger and a recent bilateral cataract surgery. HOME MEDICATIONS: The patient currently on: 1. Naproxen as needed for pain. 2. Losartan/hydrochlorothiazide 100/25 mg 1 tablet oral daily. 3. Levothyroxine 125 mcg every morning. 4. Calcium carbonate 1 tablet oral day every morning. 5. Tylenol 2 tablets p.o. b.i.d. 6. Clonidine 0.1 mg 1 to 2 times a day as needed for high blood pressure. ALLERGIES: The patient has no known drug allergies. REVIEW OF SYSTEMS: A 14-point review of systems did not reveal any new information other than what is stated in the HPI. FAMILY HISTORY: Noncontributory at her age. SOCIAL HISTORY: The patient lives by herself. 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 Denies any smoking, alcohol, or drug abuse and is otherwise full code. PHYSICAL EXAMINATION GENERAL: In general, the patient is awake, alert, oriented x3, did not appear to be in any acute distress. VITAL SIGNS: In the ER, BP was noted to be elevated at 197/94, heart rate 70, respiration rate 16, saturating 93% on room air. HEAD AND NECK: Atraumatic, normocephalic. Bilateral pupils are reactive. Oral mucosa was moist. HEART: S1, S2. Regular rate and rhythm. NECK: Supple. No jugular venous distention. LUNGS: Clear to auscultation bilaterally. No wheezing, rhonchi, or rales. ABDOMEN: Soft, nontender, nondistended. EXTREMITIES: No cyanosis, clubbing, or edema. DIAGNOSTIC STUDIES/LAB DATA: CBC was unremarkable. Basic metabolic panel shows hyponatremia with sodium of 118, chloride of 87. Serum osm was decreased at 262. Repeat BMP shows sodium of 118, chloride 87. Urinalysis showed 1+ ketones and positive blood and 3+ leuk esterase and some squamous cell being present. Urine sodium concentration was noted to be 90 and urine osmolality was 474. IMPRESSION: This is a 78-year-old female with history of hypertension, on diuretic therapy and recently started on low-salt diet and increased free water , which all likely contributed to the patient's hypoosmolar hyponatremia. ASSESSMENT AND PLAN: 1. Hypoosmolar hyponatremia secondary to decreased salt intake and increased free water intake. We will start the patient on normal saline to hydrate and to improve her overall sodium level. We will also hold home diuretic therapy and start the patient on amlodipine for better BP control along with hydralazine 25 mg p.o. t.i.d. 2. History of hypertension, which is uncontrolled. As mentioned, we will hold the diuretics and start the patient on amlodipine and hydralazine. 3. History of hypothyroidism. We will check a TSH level and restart home levothyroxine dosage. 4. Asymptomatic bacteriuria. We will follow up cultures and treat if patient, however, gets symptomatic. 5. History of osteoarthritis with outpatient schedule for left total knee replacement. We will start the patient on p.r.n. Tylenol for pain medication. 6. DVT prophylaxis with subcu Lovenox. 7. Code status: Full code. [id number]/CPS #: [id number] MTDD
--- NOTE | 2019-02-14 14:57 | PN ---
Subjective Date of Service: 02/14/19 Interval History: Ms. Gomez states she is feeling better today. She notes dizziness, lightheadedness, headache, lethargy yesterday, all of which have resolved today. She denies LE edema. She admits to some increase in urinary frequency with IVF hydration, but denies dysuria, hematuria, urgency, retention. She has no other complaints today. Pt notes that she recently changed diet and adds no salt to foods. She admits to eating at least 2 oz cheese per day, but does not eat many other processed foods. She has tried to increase her water intake, and has been drinking approximately 24 oz water per day. Objective Active Medications: Acetaminophen (Tylenol Tab*) 975 mg PO BID PRN Acetaminophen (Tylenol Tab*) 650 mg PO Q6H PRN Amlodipine Besylate (Norvasc Tab*) 10 mg PO DAILY [facility] Calcium/Vitamin D (Oscal D Tab 250/125*) 1 tab PO QAM CRUZ Enoxaparin Sodium (Lovenox(*)) 40 mg SUBCUT Q24H CRUZ Hydralazine HCl (Apresoline Tab*) 25 mg PO TID CRUZ Levothyroxine Sodium (Synthroid Tab*) 125 mcg PO QAM@0600 [facility] Vital Signs: Temp Pulse Resp BP Pulse Ox 97.9 F 66 19 183/66 97 02/14/19 07:00 02/14/19 07:00 02/14/19 08:00 02/14/19 07:00 02/14/19 07:00 Oxygen Devices in Use Now: None Appearance: Pt is sitting up in bed sleeping. She wakes easily, and is in no acute distress. She is pleasant, cooperative. Eyes: No Scleral Icterus, PERRLA Ears/Nose/Mouth/Throat: NL Teeth, Lips, Gums, Clear Oropharnyx, Mucous Membranes Moist Neck: NL Appearance and Movements; NL JVP, Trachea Midline Respiratory: Symmetrical Chest Expansion and Respiratory Effort, Clear to Auscultation Cardiovascular: NL Sounds; No Murmurs; No JVD, RRR, No Edema Abdominal: NL Sounds; No Tenderness; No Distention, No Hepatosplenomegaly Extremities: No Edema, No Clubbing, Cyanosis Neurological: Alert and Oriented x 3, NL Sensation, NL Muscle Strength and Tone , - - CN II-XII grossly intact. Result Diagrams: 02/13/19 23:44 02/14/19 04:58 Additional Lab and Data: Lab Results 02/13/19 02/13/19 02/13/19 Range/Units 23:44 23:44 23:44 WBC 7.9 (3.5-10.8) 10^3/uL RBC 3.89 (3.70-4.87) 10^6 /uL Hgb 12.3 (12.0-16.0) g/dL Hct 35 (35-47) % MCV 91 (80-97) fL MCH 32 H (27-31) pg MCHC 35 (31-36) g/dL RDW 14 (10-15) % Plt Count 331 (150-450) 10^3/uL MPV 7.2 L (7.4-10.4) fL Neut % (Auto) 50.1 % Lymph % (Auto) 35.8 % [place] % (Auto) 12.4 % Eos % (Auto) 0.9 % Baso % (Auto) 0.8 % Absolute Neuts (auto) 3.9 (1.5-7.7) 10^3/ul Absolute Lymphs (auto) 2.8 (1.0-4.8) 10^3/ul Absolute Monos (auto) 1.0 H (0-0.8) 10^3/ul Absolute Eos (auto) 0.1 (0-0.6) 10^3/ul Absolute Basos (auto) 0.1 (0-0.2) 10^3/ul Absolute Nucleated RBC 0.0 10^3/ul Nucleated RBC % 0.1 Sodium 118 L* (135-145) mmol/L Potassium 4.0 (3.5-5.0) mmol/L Chloride 83 L (101-111) mmol/L Carbon Dioxide 27 (22-32) mmol/L Anion Gap 8 (2-11) mmol/L BUN 17 (6-24) mg/dL Creatinine 0.80 (0.51-0.95) mg/dL Est GFR ( Amer) 83.7 (>60) Est GFR (Non-Af Amer) 69.2 (>60) BUN/Creatinine Ratio 21.3 H (8-20) Glucose 112 H (70-100) mg/dL Serum Osmolality 262 L (275-295) mOsm/kg Calcium 9.6 (8.6-10.3) mg/dL TSH (0.34-5.60) mcIU/mL Urine Color Urine Appearance Urine pH (5-9) Ur Specific [place] (1.010-1.030) Urine Protein (Negative) Urine Ketones (Negative) Urine Blood (Negative) Urine Nitrate (Negative) Urine Bilirubin (Negative) Urine Urobilinogen (Negative) Ur Leukocyte Esterase (Negative) Urine WBC (Auto) (Absent) Urine RBC (Auto) (Absent) Ur Squamous Epith Cells (Absent) Urine Bacteria (Absent) Urine Osmolality (100-1150) mOsm/kg U Sodium Concentration mmol/L Urine Potassium mmol/L Ur Chloride Concentrat mmol/L Urine Glucose (Negative) 02/14/19 02/14/19 02/14/19 Range/Units 01:45 01:45 01:45 WBC (3.5-10.8) 10^3/uL RBC (3.70-4.87) 10^6 /uL Hgb (12.0-16.0) g/dL Hct (35-47) % MCV (80-97) fL MCH (27-31) pg MCHC (31-36) g/dL RDW (10-15) % Plt Count (150-450) 10^3/uL MPV (7.4-10.4) fL Neut % (Auto) % Lymph % (Auto) % [place] % (Auto) % Eos % (Auto) % Baso % (Auto) % Absolute Neuts (auto) (1.5-7.7) 10^3/ul Absolute Lymphs (auto) (1.0-4.8) 10^3/ul Absolute Monos (auto) (0-0.8) 10^3/ul Absolute Eos (auto) (0-0.6) 10^3/ul Absolute Basos (auto) (0-0.2) 10^3/ul Absolute Nucleated RBC 10^3/ul Nucleated RBC % Sodium (135-145) mmol/L Potassium (3.5-5.0) mmol/L Chloride (101-111) mmol/L Carbon Dioxide (22-32) mmol/L Anion Gap (2-11) mmol/L BUN (6-24) mg/dL Creatinine (0.51-0.95) mg/dL Est GFR ( Amer) (>60) Est GFR (Non-Af Amer) (>60) BUN/Creatinine Ratio (8-20) Glucose (70-100) mg/dL Serum Osmolality (275-295) mOsm/kg Calcium (8.6-10.3) mg/dL TSH (0.34-5.60) mcIU/mL Urine Color Yellow Urine Appearance Cloudy Urine pH 7.0 (5-9) Ur Specific [place] 1.013 (1.010-1.030) Urine Protein Negative (Negative) Urine Ketones 1+ A (Negative) Urine Blood 1+ A (Negative) Urine Nitrate Negative (Negative) Urine Bilirubin Negative (Negative) Urine Urobilinogen Negative (Negative) Ur Leukocyte Esterase 3+ A (Negative) Urine WBC (Auto) 3+(>20/hpf) A (Absent) Urine RBC (Auto) 1+(3-5/hpf) A (Absent) Ur Squamous Epith Cells Present A (Absent) Urine Bacteria 1+ A (Absent) Urine Osmolality 474 (100-1150) mOsm/kg U Sodium Concentration 90 mmol/L Urine Potassium 69.7 mmol/L Ur Chloride Concentrat 109 mmol/L Urine Glucose Negative (Negative) 02/14/19 02/14/19 Range/Units 04:58 04:58 WBC (3.5-10.8) 10^3/uL RBC (3.70-4.87) 10^6 /uL Hgb (12.0-16.0) g/dL Hct (35-47) % MCV (80-97) fL MCH (27-31) pg MCHC (31-36) g/dL RDW (10-15) % Plt Count (150-450) 10^3/uL MPV (7.4-10.4) fL Neut % (Auto) % Lymph % (Auto) % [place] % (Auto) % Eos % (Auto) % Baso % (Auto) % Absolute Neuts (auto) (1.5-7.7) 10^3/ul Absolute Lymphs (auto) (1.0-4.8) 10^3/ul Absolute Monos (auto) (0-0.8) 10^3/ul Absolute Eos (auto) (0-0.6) 10^3/ul Absolute Basos (auto) (0-0.2) 10^3/ul Absolute Nucleated RBC 10^3/ul Nucleated RBC % Sodium 118 L* (135-145) mmol/L Potassium 3.6 (3.5-5.0) mmol/L Chloride 87 L (101-111) mmol/L Carbon Dioxide 24 (22-32) mmol/L Anion Gap 7 (2-11) mmol/L BUN 13 (6-24) mg/dL Creatinine 0.63 (0.51-0.95) mg/dL Est GFR ( Amer) 110.3 (>60) Est GFR (Non-Af Amer) 91.2 (>60) BUN/Creatinine Ratio 20.6 H (8-20) Glucose 108 H (70-100) mg/dL Serum Osmolality (275-295) mOsm/kg Calcium 8.5 L (8.6-10.3) mg/dL TSH 0.88 (0.34-5.60) mcIU/mL Urine Color Urine Appearance Urine pH (5-9) Ur Specific [place] (1.010-1.030) Urine Protein (Negative) Urine Ketones (Negative) Urine Blood (Negative) Urine Nitrate (Negative) Urine Bilirubin (Negative) Urine Urobilinogen (Negative) Ur Leukocyte Esterase (Negative) Urine WBC (Auto) (Absent) Urine RBC (Auto) (Absent) Ur Squamous Epith Cells (Absent) Urine Bacteria (Absent) Urine Osmolality (100-1150) mOsm/kg U Sodium Concentration mmol/L Urine Potassium mmol/L Ur Chloride Concentrat mmol/L Urine Glucose (Negative) Assess/Plan/Problems-Billing Assessment: 78yof PMHx HTN, hypothyroids, OA L knee presents with hyponatremia. - Patient Problems (1) Hyponatremia Comment: -Hypoosmolar vs SIADH -IVF 75cc/h overnight, d/c HCTZ -Na unchanged with interventions above -Recheck Na now -If still elevated, will place on fluid restriction, salt tablets (2) Asymptomatic bacteriuria Comment: -3+ LE, 1+ bacteria without UTI symptoms -Will await urine culture to check for growth (3) Hypertension Comment: -Home medications: clonidine, losartan/HCTZ -Continue to hold HCTZ -Restart clonidine, losartan -Continue amlodipine (new) (4) Hypothyroidism Comment: -Continue home levothyroxine (5) Osteoarthritis Comment: -Tylenol prn pain -Pt has outpatient LTKA planned (6) DVT prophylaxis Comment: -Lovenox (7) Full code status Status and Disposition: Observation. Discharge when stable.
[2019-02-14] MEDS ORDERED: cloNIDine TAB* 0.1 MG PO PRN (16:00)
[2019-02-14] MEDS ORDERED: Sodium Chloride TAB* 1 GM PO ONE (16:36)
[2019-02-14] MEDS: Sodium Chloride TAB* 1 GM PO SCH (21:23)
[2019-02-15] MEDS: Enoxaparin(*) 40 MG/0.4 ML SYR SUBCUT SCH (05:25)
[2019-02-15] MEDS: Levothyroxine TAB* 125 MCG TAB PO SCH (05:25)
[2019-02-15 07:03] LABS: ABS Basophils 0.1 10^3/ul (0-0.2); ABS Eosinophils 0.1 10^3/ul (0-0.6); ABS Lymphocytes 2.4 10^3/ul (1.0-4.8); ABS Monocytes 0.9 10^3/ul (0-0.8); ABS Neutrophils 3.2 10^3/ul (1.5-7.7); Eosinophil % 1.4 %; Hematocrit 30 % (35-47); Hemoglobin 10.9 g/dL (12.0-16.0); Lymphocyte % 36.3 %; Mean Corpuscular HGB Conc 36 g/dL (31-36); Mean Corpuscular Hemoglobin 32 pg (27-31); Mean Corpuscular Volume 90 fL (80-97); Mean Platelet Volume 7.2 fL (7.4-10.4); Platelet Count 307 10^3/uL (150-450); Red Blood Count 3.35 10^6 /uL (3.70-4.87); Red Cell Distribution Width 14 % (10-15); White Blood Count 6.6 10^3/uL (3.5-10.8)
[2019-02-15 07:12] LABS: BUN/Creatinine Ratio 16.4 (8-20); EGFR Non-African American 106.6 (>60); Potassium 3.6 mmol/L (3.5-5.0)
[2019-02-15] MEDS: Sodium Chloride TAB* 1 GM PO SCH ×2 (09:49→21:35)
[2019-02-15] MEDS: hydrALAZINE TAB* 25 MG PO SCH ×3 (09:50→21:35)
[2019-02-15] MEDS: amLODIPine TAB* 5 MG PO SCH (09:50)
[2019-02-15] MEDS: Calcium/Vitamin D TAB 250/125* TAB PO SCH (09:53)
[2019-02-15] MEDS: Losartan TAB* 25 MG PO SCH (09:53)
--- NOTE | 2019-02-15 15:20 | PN ---
Subjective Date of Service: 02/15/19 Interval History: Pt is feeling well; symptoms of dizziness/hightheadedness, headache, lethargy present at admission are resolved. She had BM yesterday and is urinating well. She is having no difficulty with fluid restriction. She is eating well. She notes that she is eager to d/c home and is becoming bored in the hospital. No other complaints today. Objective Active Medications: Acetaminophen (Tylenol Tab*) 975 mg PO BID PRN Acetaminophen (Tylenol Tab*) 650 mg PO Q6H PRN Amlodipine Besylate (Norvasc Tab*) 10 mg PO DAILY CRUZ Calcium/Vitamin D (Oscal D Tab 250/125*) 1 tab PO QAM CRUZ Clonidine HCl (Catapres Tab*) 0.1 mg PO Q12H PRN Enoxaparin Sodium (Lovenox(*)) 40 mg SUBCUT Q24H CRUZ Hydralazine HCl (Apresoline Tab*) 25 mg PO TID CRUZ Levothyroxine Sodium (Synthroid Tab*) 125 mcg PO QAM@0600 CRUZ Losartan Potassium (Cozaar Tab*) 100 mg PO DAILY CRUZ Sodium Chloride (Sodium Chloride Tab*) 1 gm PO BID CRUZ Vital Signs: Temp Pulse Resp BP Pulse Ox 97.9 F 66 18 147/45 96 02/15/19 15:04 02/15/19 15:04 02/15/19 19:14 02/15/19 15:04 02/15/19 15:04 Oxygen Devices in Use Now: None Appearance: Pt is sitting up in bed, HOB elevated. She is in no acute distress. Eyes: No Scleral Icterus, PERRLA Ears/Nose/Mouth/Throat: NL Teeth, Lips, Gums, Clear Oropharnyx, Mucous Membranes Moist Neck: NL Appearance and Movements; NL JVP, Trachea Midline Respiratory: Symmetrical Chest Expansion and Respiratory Effort, Clear to Auscultation Cardiovascular: NL Sounds; No Murmurs; No JVD, RRR, No Edema Abdominal: NL Sounds; No Tenderness; No Distention, No Hepatosplenomegaly Extremities: No Edema, No Clubbing, Cyanosis Neurological: Alert and Oriented x 3, NL Sensation, NL Muscle Strength and Tone Result Diagrams: 02/15/19 06:35 02/15/19 06:35 Additional Lab and Data: Lab Results 02/13/19 02/13/19 02/13/19 Range/Units 23:44 23:44 23:44 WBC 7.9 (3.5-10.8) 10^3/uL RBC 3.89 (3.70-4.87) 10^6 /uL Hgb 12.3 (12.0-16.0) g/dL Hct 35 (35-47) % MCV 91 (80-97) fL MCH 32 H (27-31) pg MCHC 35 (31-36) g/dL RDW 14 (10-15) % Plt Count 331 (150-450) 10^3/uL MPV 7.2 L (7.4-10.4) fL Neut % (Auto) 50.1 % Lymph % (Auto) 35.8 % [place] % (Auto) 12.4 % Eos % (Auto) 0.9 % Baso % (Auto) 0.8 % Absolute Neuts (auto) 3.9 (1.5-7.7) 10^3/ul Absolute Lymphs (auto) 2.8 (1.0-4.8) 10^3/ul Absolute Monos (auto) 1.0 H (0-0.8) 10^3/ul Absolute Eos (auto) 0.1 (0-0.6) 10^3/ul Absolute Basos (auto) 0.1 (0-0.2) 10^3/ul Absolute Nucleated RBC 0.0 10^3/ul Nucleated RBC % 0.1 Sodium 118 L* (135-145) mmol/L Potassium 4.0 (3.5-5.0) mmol/L Chloride 83 L (101-111) mmol/L Carbon Dioxide 27 (22-32) mmol/L Anion Gap 8 (2-11) mmol/L BUN 17 (6-24) mg/dL Creatinine 0.80 (0.51-0.95) mg/dL Est GFR ( Amer) 83.7 (>60) Est GFR (Non-Af Amer) 69.2 (>60) BUN/Creatinine Ratio 21.3 H (8-20) Glucose 112 H (70-100) mg/dL Serum Osmolality 262 L (275-295) mOsm/kg Calcium 9.6 (8.6-10.3) mg/dL TSH (0.34-5.60) mcIU/mL Urine Color Urine Appearance Urine pH (5-9) Ur Specific [place] (1.010-1.030) Urine Protein (Negative) Urine Ketones (Negative) Urine Blood (Negative) Urine Nitrate (Negative) Urine Bilirubin (Negative) Urine Urobilinogen (Negative) Ur Leukocyte Esterase (Negative) Urine WBC (Auto) (Absent) Urine RBC (Auto) (Absent) Ur Squamous Epith Cells (Absent) Urine Bacteria (Absent) Urine Osmolality (100-1150) mOsm/kg U Sodium Concentration mmol/L Urine Potassium mmol/L Ur Chloride Concentrat mmol/L Urine Glucose (Negative) 02/14/19 02/14/19 02/14/19 Range/Units 01:45 01:45 01:45 WBC (3.5-10.8) 10^3/uL RBC (3.70-4.87) 10^6 /uL Hgb (12.0-16.0) g/dL Hct (35-47) % MCV (80-97) fL MCH (27-31) pg MCHC (31-36) g/dL RDW (10-15) % Plt Count (150-450) 10^3/uL MPV (7.4-10.4) fL Neut % (Auto) % Lymph % (Auto) % [place] % (Auto) % Eos % (Auto) % Baso % (Auto) % Absolute Neuts (auto) (1.5-7.7) 10^3/ul Absolute Lymphs (auto) (1.0-4.8) 10^3/ul Absolute Monos (auto) (0-0.8) 10^3/ul Absolute Eos (auto) (0-0.6) 10^3/ul Absolute Basos (auto) (0-0.2) 10^3/ul Absolute Nucleated RBC 10^3/ul Nucleated RBC % Sodium (135-145) mmol/L Potassium (3.5-5.0) mmol/L Chloride (101-111) mmol/L Carbon Dioxide (22-32) mmol/L Anion Gap (2-11) mmol/L BUN (6-24) mg/dL Creatinine (0.51-0.95) mg/dL Est GFR ( Amer) (>60) Est GFR (Non-Af Amer) (>60) BUN/Creatinine Ratio (8-20) Glucose (70-100) mg/dL Serum Osmolality (275-295) mOsm/kg Calcium (8.6-10.3) mg/dL TSH (0.34-5.60) mcIU/mL Urine Color Yellow Urine Appearance Cloudy Urine pH 7.0 (5-9) Ur Specific [place] 1.013 (1.010-1.030) Urine Protein Negative (Negative) Urine Ketones 1+ A (Negative) Urine Blood 1+ A (Negative) Urine Nitrate Negative (Negative) Urine Bilirubin Negative (Negative) Urine Urobilinogen Negative (Negative) Ur Leukocyte Esterase 3+ A (Negative) Urine WBC (Auto) 3+(>20/hpf) A (Absent) Urine RBC (Auto) 1+(3-5/hpf) A (Absent) Ur Squamous Epith Cells Present A (Absent) Urine Bacteria 1+ A (Absent) Urine Osmolality 474 (100-1150) mOsm/kg U Sodium Concentration 90 mmol/L Urine Potassium 69.7 mmol/L Ur Chloride Concentrat 109 mmol/L Urine Glucose Negative (Negative) 02/14/19 02/14/19 Range/Units 04:58 04:58 WBC (3.5-10.8) 10^3/uL RBC (3.70-4.87) 10^6 /uL Hgb (12.0-16.0) g/dL Hct (35-47) % MCV (80-97) fL MCH (27-31) pg MCHC (31-36) g/dL RDW (10-15) % Plt Count (150-450) 10^3/uL MPV (7.4-10.4) fL Neut % (Auto) % Lymph % (Auto) % [place] % (Auto) % Eos % (Auto) % Baso % (Auto) % Absolute Neuts (auto) (1.5-7.7) 10^3/ul Absolute Lymphs (auto) (1.0-4.8) 10^3/ul Absolute Monos (auto) (0-0.8) 10^3/ul Absolute Eos (auto) (0-0.6) 10^3/ul Absolute Basos (auto) (0-0.2) 10^3/ul Absolute Nucleated RBC 10^3/ul Nucleated RBC % Sodium 118 L* (135-145) mmol/L Potassium 3.6 (3.5-5.0) mmol/L Chloride 87 L (101-111) mmol/L Carbon Dioxide 24 (22-32) mmol/L Anion Gap 7 (2-11) mmol/L BUN 13 (6-24) mg/dL Creatinine 0.63 (0.51-0.95) mg/dL Est GFR ( Amer) 110.3 (>60) Est GFR (Non-Af Amer) 91.2 (>60) BUN/Creatinine Ratio 20.6 H (8-20) Glucose 108 H (70-100) mg/dL Serum Osmolality (275-295) mOsm/kg Calcium 8.5 L (8.6-10.3) mg/dL TSH 0.88 (0.34-5.60) mcIU/mL Urine Color Urine Appearance Urine pH (5-9) Ur Specific [place] (1.010-1.030) Urine Protein (Negative) Urine Ketones (Negative) Urine Blood (Negative) Urine Nitrate (Negative) Urine Bilirubin (Negative) Urine Urobilinogen (Negative) Ur Leukocyte Esterase (Negative) Urine WBC (Auto) (Absent) Urine RBC (Auto) (Absent) Ur Squamous Epith Cells (Absent) Urine Bacteria (Absent) Urine Osmolality (100-1150) mOsm/kg U Sodium Concentration mmol/L Urine Potassium mmol/L Ur Chloride Concentrat mmol/L Urine Glucose (Negative) Microbiology and Other Data: Microbiology 02/14/19 01:45 Urine Culture - Final Urine No Growth (<1,000 CFU/mL) Assess/Plan/Problems-Billing Assessment: 78yof PMHx HTN, hypothyroids, OA L knee presents with hyponatremia. - Patient Problems (1) Hyponatremia Comment: -Asymptomatic -Hypoosmolar vs SIADH -IVF 75cc/h overnight, d/c HCTZ -Na unchanged with interventions above -Fluid restriction 800cc, salt tablets BID and Na increased to 121 -Recheck in a.m. and continue fluid restriction, salt tablets (2) Asymptomatic bacteriuria Comment: -3+ LE, 1+ bacteria without UTI symptoms -Urine culture with no growth, no need for antibiotics (3) Hypertension Comment: -Home medications: clonidine, losartan/HCTZ -Continue to hold HCTZ -Restart clonidine, losartan -Continue amlodipine (new) (4) Hypothyroidism Comment: -Continue home levothyroxine (5) Osteoarthritis Comment: -Tylenol prn pain -Pt has outpatient LTKA planned (6) DVT prophylaxis Comment: -Lovenox (7) Full code status Status and Disposition: Observation. Discharge when stable.
[2019-02-16] MEDS: Enoxaparin(*) 40 MG/0.4 ML SYR SUBCUT SCH (05:35)
[2019-02-16] MEDS: Levothyroxine TAB* 125 MCG TAB PO SCH (05:36)
[2019-02-16 08:45] LABS: Hematocrit 32 % (35-47); Hemoglobin 11.5 g/dL (12.0-16.0)
[2019-02-16 09:01] LABS: BUN/Creatinine Ratio 19.7 (8-20); Calcium 9.4 mg/dL (8.6-10.3); EGFR African American 104.5 (>60); EGFR Non-African American 86.4 (>60); Potassium 3.7 mmol/L (3.5-5.0)
[2019-02-16] MEDS: amLODIPine TAB* 5 MG PO SCH (11:24)
[2019-02-16] MEDS: Sodium Chloride TAB* 1 GM PO SCH ×2 (11:24→20:28)
[2019-02-16] MEDS: Losartan TAB* 25 MG PO SCH (11:25)
[2019-02-16] MEDS: Calcium/Vitamin D TAB 250/125* TAB PO SCH (11:25)
[2019-02-16] MEDS: hydrALAZINE TAB* 25 MG PO SCH ×3 (12:10→20:28)
--- NOTE | 2019-02-16 18:50 | PN ---
Subjective Date of Service: 02/16/19 Interval History: Pt is feeling well today. She feels jittery and admits that she is anxious to be discharged, although she is agreeable to another night for continued monitoring of Na. She has b/l knee pain, which is chronic. She has no other complaints today, including no headache, nausea, lethargy, malaise. Objective Active Medications: Acetaminophen (Tylenol Tab*) 975 mg PO BID PRN Acetaminophen (Tylenol Tab*) 650 mg PO Q6H PRN Amlodipine Besylate (Norvasc Tab*) 10 mg PO DAILY CRUZ Calcium/Vitamin D (Oscal D Tab 250/125*) 1 tab PO QAM CRUZ Clonidine HCl (Catapres Tab*) 0.1 mg PO Q12H PRN Enoxaparin Sodium (Lovenox(*)) 40 mg SUBCUT Q24H CRUZ Hydralazine HCl (Apresoline Tab*) 25 mg PO TID CRUZ Levothyroxine Sodium (Synthroid Tab*) 125 mcg PO QAM@0600 CRUZ Losartan Potassium (Cozaar Tab*) 100 mg PO DAILY CRUZ Sodium Chloride (Sodium Chloride Tab*) 1 gm PO BID CRUZ Vital Signs: Temp Pulse Resp BP Pulse Ox 98.0 F 69 16 139/52 99 02/16/19 15:15 02/16/19 15:15 02/16/19 15:15 02/16/19 15:15 02/16/19 15:15 Oxygen Devices in Use Now: None Appearance: Pt is sitting in chair with LE at ground. She appears to be in no acute distress; is cooperative, appropriate. Eyes: No Scleral Icterus, PERRLA Ears/Nose/Mouth/Throat: NL Teeth, Lips, Gums, Clear Oropharnyx, Mucous Membranes Moist Neck: NL Appearance and Movements; NL JVP, Trachea Midline Respiratory: Symmetrical Chest Expansion and Respiratory Effort, Clear to Auscultation Cardiovascular: NL Sounds; No Murmurs; No JVD, RRR, No Edema Abdominal: NL Sounds; No Tenderness; No Distention, No Hepatosplenomegaly Extremities: No Edema, No Clubbing, Cyanosis Neurological: Alert and Oriented x 3 Result Diagrams: 02/16/19 08:32 02/16/19 08:32 Additional Lab and Data: Lab Results 02/13/19 02/13/19 02/13/19 Range/Units 23:44 23:44 23:44 WBC 7.9 (3.5-10.8) 10^3/uL RBC 3.89 (3.70-4.87) 10^6 /uL Hgb 12.3 (12.0-16.0) g/dL Hct 35 (35-47) % MCV 91 (80-97) fL MCH 32 H (27-31) pg MCHC 35 (31-36) g/dL RDW 14 (10-15) % Plt Count 331 (150-450) 10^3/uL MPV 7.2 L (7.4-10.4) fL Neut % (Auto) 50.1 % Lymph % (Auto) 35.8 % [place] % (Auto) 12.4 % Eos % (Auto) 0.9 % Baso % (Auto) 0.8 % Absolute Neuts (auto) 3.9 (1.5-7.7) 10^3/ul Absolute Lymphs (auto) 2.8 (1.0-4.8) 10^3/ul Absolute Monos (auto) 1.0 H (0-0.8) 10^3/ul Absolute Eos (auto) 0.1 (0-0.6) 10^3/ul Absolute Basos (auto) 0.1 (0-0.2) 10^3/ul Absolute Nucleated RBC 0.0 10^3/ul Nucleated RBC % 0.1 Sodium 118 L* (135-145) mmol/L Potassium 4.0 (3.5-5.0) mmol/L Chloride 83 L (101-111) mmol/L Carbon Dioxide 27 (22-32) mmol/L Anion Gap 8 (2-11) mmol/L BUN 17 (6-24) mg/dL Creatinine 0.80 (0.51-0.95) mg/dL Est GFR ( Amer) 83.7 (>60) Est GFR (Non-Af Amer) 69.2 (>60) BUN/Creatinine Ratio 21.3 H (8-20) Glucose 112 H (70-100) mg/dL Serum Osmolality 262 L (275-295) mOsm/kg Calcium 9.6 (8.6-10.3) mg/dL TSH (0.34-5.60) mcIU/mL Urine Color Urine Appearance Urine pH (5-9) Ur Specific [place] (1.010-1.030) Urine Protein (Negative) Urine Ketones (Negative) Urine Blood (Negative) Urine Nitrate (Negative) Urine Bilirubin (Negative) Urine Urobilinogen (Negative) Ur Leukocyte Esterase (Negative) Urine WBC (Auto) (Absent) Urine RBC (Auto) (Absent) Ur Squamous Epith Cells (Absent) Urine Bacteria (Absent) Urine Osmolality (100-1150) mOsm/kg U Sodium Concentration mmol/L Urine Potassium mmol/L Ur Chloride Concentrat mmol/L Urine Glucose (Negative) 02/14/19 02/14/19 02/14/19 Range/Units 01:45 01:45 01:45 WBC (3.5-10.8) 10^3/uL RBC (3.70-4.87) 10^6 /uL Hgb (12.0-16.0) g/dL Hct (35-47) % MCV (80-97) fL MCH (27-31) pg MCHC (31-36) g/dL RDW (10-15) % Plt Count (150-450) 10^3/uL MPV (7.4-10.4) fL Neut % (Auto) % Lymph % (Auto) % [place] % (Auto) % Eos % (Auto) % Baso % (Auto) % Absolute Neuts (auto) (1.5-7.7) 10^3/ul Absolute Lymphs (auto) (1.0-4.8) 10^3/ul Absolute Monos (auto) (0-0.8) 10^3/ul Absolute Eos (auto) (0-0.6) 10^3/ul Absolute Basos (auto) (0-0.2) 10^3/ul Absolute Nucleated RBC 10^3/ul Nucleated RBC % Sodium (135-145) mmol/L Potassium (3.5-5.0) mmol/L Chloride (101-111) mmol/L Carbon Dioxide (22-32) mmol/L Anion Gap (2-11) mmol/L BUN (6-24) mg/dL Creatinine (0.51-0.95) mg/dL Est GFR ( Amer) (>60) Est GFR (Non-Af Amer) (>60) BUN/Creatinine Ratio (8-20) Glucose (70-100) mg/dL Serum Osmolality (275-295) mOsm/kg Calcium (8.6-10.3) mg/dL TSH (0.34-5.60) mcIU/mL Urine Color Yellow Urine Appearance Cloudy Urine pH 7.0 (5-9) Ur Specific [place] 1.013 (1.010-1.030) Urine Protein Negative (Negative) Urine Ketones 1+ A (Negative) Urine Blood 1+ A (Negative) Urine Nitrate Negative (Negative) Urine Bilirubin Negative (Negative) Urine Urobilinogen Negative (Negative) Ur Leukocyte Esterase 3+ A (Negative) Urine WBC (Auto) 3+(>20/hpf) A (Absent) Urine RBC (Auto) 1+(3-5/hpf) A (Absent) Ur Squamous Epith Cells Present A (Absent) Urine Bacteria 1+ A (Absent) Urine Osmolality 474 (100-1150) mOsm/kg U Sodium Concentration 90 mmol/L Urine Potassium 69.7 mmol/L Ur Chloride Concentrat 109 mmol/L Urine Glucose Negative (Negative) 02/14/19 02/14/19 Range/Units 04:58 04:58 WBC (3.5-10.8) 10^3/uL RBC (3.70-4.87) 10^6 /uL Hgb (12.0-16.0) g/dL Hct (35-47) % MCV (80-97) fL MCH (27-31) pg MCHC (31-36) g/dL RDW (10-15) % Plt Count (150-450) 10^3/uL MPV (7.4-10.4) fL Neut % (Auto) % Lymph % (Auto) % [place] % (Auto) % Eos % (Auto) % Baso % (Auto) % Absolute Neuts (auto) (1.5-7.7) 10^3/ul Absolute Lymphs (auto) (1.0-4.8) 10^3/ul Absolute Monos (auto) (0-0.8) 10^3/ul Absolute Eos (auto) (0-0.6) 10^3/ul Absolute Basos (auto) (0-0.2) 10^3/ul Absolute Nucleated RBC 10^3/ul Nucleated RBC % Sodium 118 L* (135-145) mmol/L Potassium 3.6 (3.5-5.0) mmol/L Chloride 87 L (101-111) mmol/L Carbon Dioxide 24 (22-32) mmol/L Anion Gap 7 (2-11) mmol/L BUN 13 (6-24) mg/dL Creatinine 0.63 (0.51-0.95) mg/dL Est GFR ( Amer) 110.3 (>60) Est GFR (Non-Af Amer) 91.2 (>60) BUN/Creatinine Ratio 20.6 H (8-20) Glucose 108 H (70-100) mg/dL Serum Osmolality (275-295) mOsm/kg Calcium 8.5 L (8.6-10.3) mg/dL TSH 0.88 (0.34-5.60) mcIU/mL Urine Color Urine Appearance Urine pH (5-9) Ur Specific [place] (1.010-1.030) Urine Protein (Negative) Urine Ketones (Negative) Urine Blood (Negative) Urine Nitrate (Negative) Urine Bilirubin (Negative) Urine Urobilinogen (Negative) Ur Leukocyte Esterase (Negative) Urine WBC (Auto) (Absent) Urine RBC (Auto) (Absent) Ur Squamous Epith Cells (Absent) Urine Bacteria (Absent) Urine Osmolality (100-1150) mOsm/kg U Sodium Concentration mmol/L Urine Potassium mmol/L Ur Chloride Concentrat mmol/L Urine Glucose (Negative) Microbiology and Other Data: Microbiology 02/14/19 01:45 Urine Culture - Final Urine No Growth (<1,000 CFU/mL) Assess/Plan/Problems-Billing Assessment: 78yof PMHx HTN, hypothyroids, OA L knee presents with hyponatremia. - Patient Problems (1) Hyponatremia Comment: -Asymptomatic -Hypoosmolar vs SIADH -IVF 75cc/h overnight, d/c HCTZ -Na unchanged with interventions above -Fluid restriction 800cc, salt tablets BID and Na increased to 124 -Recheck in a.m. and continue fluid restriction, salt tablets (2) Asymptomatic bacteriuria Comment: -3+ LE, 1+ bacteria without UTI symptoms -Urine culture with no growth, no need for antibiotics (3) Hypertension Comment: -Home medications: clonidine, losartan/HCTZ -Continue to hold HCTZ -Restart clonidine, losartan -Continue amlodipine (new) (4) Hypothyroidism Comment: -Continue home levothyroxine (5) Osteoarthritis Comment: -Tylenol prn pain -Pt has outpatient LTKA planned (6) DVT prophylaxis Comment: -Lovenox (7) Full code status Status and Disposition: Observation. Discharge when stable.
[2019-02-17] MEDS: Enoxaparin(*) 40 MG/0.4 ML SYR SUBCUT SCH (05:22)
[2019-02-17] MEDS: Levothyroxine TAB* 125 MCG TAB PO SCH (05:22)
[2019-02-17 07:15] LABS: BUN/Creatinine Ratio 24.7 (8-20); Calcium 9.2 mg/dL (8.6-10.3); EGFR African American 87.5 (>60); EGFR Non-African American 72.3 (>60); Potassium 3.9 mmol/L (3.5-5.0)
[2019-02-17 08:46] VITALS: BP 151/59
[2019-02-17] MEDS: Losartan TAB* 25 MG PO SCH (09:52)
[2019-02-17] MEDS: Sodium Chloride TAB* 1 GM PO SCH (09:53)
[2019-02-17] MEDS: amLODIPine TAB* 5 MG PO SCH (09:53)
[2019-02-17] MEDS: Calcium/Vitamin D TAB 250/125* TAB PO SCH (09:53)
[2019-02-17] MEDS: hydrALAZINE TAB* 25 MG PO SCH (09:53)
--- NOTE | 2019-02-17 14:05 | DS ---
DISCHARGE SUMMARY: DATE OF ADMISSION: 02/14/19 DATE OF DISCHARGE: 02/17/19 PRIMARY CARE PROVIDER: Abril Gongora MD ATTENDING PHYSICIAN: Charlene Sosa MD * (dictated by MARY JO Castellanos ). PRIMARY DIAGNOSES: 1. 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 2. Hypertension. 3. Asymptomatic bacteriuria. SECONDARY DIAGNOSES: 1. Hypertension. 2. Hypothyroidism. 3. Diverticulitis. 4. Osteoarthritis. STUDIES WHILE IN THE HOSPITAL: None. DISCHARGE MEDICATIONS: Home medications: 1. Acetaminophen extra strength 2 tabs p.o. b.i.d. p.r.n. pain. 2. Calcium carbonate-vitamin D3, 1 cap p.o. daily. 3. Clonidine 0.1 mg p.o. 1 to 2 times daily p.r.n. high blood pressure. 4. Levothyroxine 125 mcg p.o. q.a.m. 5. Naproxen 220 mg p.o. p.r.n. New home medications: 1. Amlodipine 10 mg p.o. daily. 2. Hydralazine 25 mg p.o. t.i.d. 3. Losartan 100 mg p.o. daily. 4. Sodium chloride 1 gram p.o. b.i.d. Discontinued home medications: 1. Losartan/hydrochlorothiazide. HISTORY OF PRESENT ILLNESS/HOSPITAL COURSE: Ms. Gomez is a 78-year-old female with past medical history of hypertension, hypothyroidism, osteoarthritis, who was sent to the ER on 02/14/19 by her primary care provider due to hyponatremia. For full and complete details, please see the history and physical dictated by Javier Adames MD, but in short, the patient presents with these symptoms. She notes she has been increasing her free water intake and decreasing her sodium intake. She received preoperative labs that showed hyponatremia with a sodium of 122. Subsequent lab showed sodium to 117. She was suggested to go to the ER where she was noted to have a sodium of 118. She was also noted to have 3+ LE in urine, 1+ bacteria. She denied dysuria, frequency, urgency, retention. Urine culture showed no growth and she therefore received no treatment for asymptomatic bacteriuria. Throughout her stay, she received a trial of IV fluids, which resulted in no change in sodium concentration. She was then placed on fluid restriction of 800 cc per day as well as sodium tablets 1 g b.i.d. Daily monitoring of sodium was ordered and by the end of the patient's hospitalization, she had a sodium of 129. Due to lack of previous lab values, we are unsure what the patient's baseline sodium is. Regardless, she is trending up and is asymptomatic. She notes that she had dizziness, lightheadedness, headache, lethargy upon admission, which resolved with treatment. At the time of discharge, she denies headache, dizziness, lightheadedness, presyncope, syncope, lethargy, malaise, chest pain, shortness of breath, vision changes, cough, fever, abdominal pain, nausea, vomiting, diarrhea or constipation. She denies myalgias but notes that she has bilateral knee pain, which she notes is chronic. She is to be scheduled for a left total knee arthroplasty in the near future. Again at the time of discharge, Ms. Acevedo sodium is 129 with treatment with fluid restriction and sodium tablets. 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 Ms. Gomez is stable for discharge. REVIEW OF SYSTEMS: A 10-point review of systems has been performed and all the pertinent positives and negatives are in the HPI. All other systems are negative. PHYSICAL EXAMINATION: Vital Signs: Temperature 97.5 temporal, heart rate 63, respiratory rate 18, oxygen saturation 97% on room air, blood pressure 151/59. General: Ms. Gomez is a well-developed, well-nourished, overweight, older, white woman, who is sitting up in her chair. She appears to be in no acute distress. She is comfortable, cooperative, and appropriate. HEENT: Visual joe grossly intact. PERRL, EOMI, nonicteric sclerae. Hearing grossly intact. Oral mucous membranes are moist. There are no lesions. Cardiovascular : Regular rate and rhythm with S1 and S2 present without murmurs, rubs, clicks , or gallops. There is no JVD. There is no peripheral edema. Radial and pedal pulses are palpable. Pulmonary: Symmetrical chest expansion without use of accessory muscles. Lungs are clear to auscultation bilaterally without rhonchi, wheezes, or rubs. There is no digital clubbing or cyanosis. Abdomen: Bowel sounds in all quadrants. The abdomen is soft. There is no tenderness to palpation. Musculoskeletal: Full range of motion, pain to bilateral knees. Neuro: The patient is awake. She is alert and oriented x3 with cranial nerves grossly intact. She is able to move all of her extremities with motor strength 5/5 in bilateral upper and lower extremities. Chief Underwriter strength is equal. Sensation is intact. DISCHARGE PLAN: Ms. Gomez will be discharged to home. CONDITION: Good. DIET: 1. Heart healthy. 2. Fluid restriction of 1250 cc of total fluid daily. ACTIVITY: As tolerated. MEDICATIONS: 1. Discontinue losartan/HCTZ. 2. Start losartan daily. 3. Continue amlodipine, clonidine, hydralazine. 4. Continue salt tablets twice daily. EDUCATION: 1. Continue fluid restriction of 1250 cc of fluid daily. 2. Repeat lab BMP in 3 to 5 days, at least 24 hours prior to appointment with primary care provider. 3. Check blood pressure at least once daily and to keep a log to bring to primary care provider. 4. Follow up with primary care provider in 4 to 7 days. Discuss recent medication changes, recent BMP lab, length of need for fluid restriction/sodium tablets and blood pressure readings. 5. Return to the ER or nearest hospital if you experience any worsening of symptoms, headache, nausea, lethargy, malaise, dizziness, lightheadedness, loss of consciousness, return for chest discomfort or pain, shortness of breath, high fevers, chills, night sweats, or any other worrisome signs or symptoms. This is a summarized report of a complex medical history and hospital stay. For further details, please see the entire medical record. TIME SPENT: Approximately 35 minutes was spent on this discharge, greater than half that time was spent [id number] with the patient discussing discharge plans and instructions. MARY JO HOWARD [id number]/[facility] #: [id number] [place]
== END 2019-02-17 11:45 | disposition home or self-care (01) | DRG 645 ==
LOC: ED 22:42 → MEDTELE 02-14 05:05 → OBSVTOIN 02-14 16:00
PROVIDERS: ADMIT Internal Medicine; ATTEND Internal Medicine
DX: E22.2 Syndrome of inappropriate secretion of antidiuretic hormone (principal); E03.9 Hypothyroidism, unspecified; I10 Essential (primary) hypertension; Z96.651 Presence of right artificial knee joint; M17.12 Unilateral primary osteoarthritis, left knee; R82.71 Bacteriuria; G89.29 Other chronic pain; Z72.89 Other problems related to lifestyle; Z98.42 Cataract extraction status, left eye; Z98.41 Cataract extraction status, right eye
CPT/HCPCS: 36415; 80048; 81003; 81015; 82436; 83930; 83935; 84133; 84300; 84443; 85014; 85018; 85025; 87086; 99283; A9270-GY; G0378; J1650

== ENCOUNTER 2019-07-24 07:30 | Inpatient (IN) | payer MEDICARE, BC ==
[2019-07-24] MEDS ORDERED: NS 0.9% 1000 ML** 1,000 ML IV ONE (07:43)
--- NOTE | 2019-07-24 07:48 | ED ---
Palpitations / Dysrhythmia - HPI Summary HPI Summary: Patient is a 78 y/o F presenting to the ED for a chief complaint of palpitations. Patient is present with her daughter. Patient also reports generalized weakness and feeling tremulous that began on 07/24/19. No aggravating or alleviating factors are reported. Her daughter notes the patient had an admission to the ICU at [facility] recently for hyponatremia. Since being discharged, she has been taking salt supplements as recommended by her care team. Patient last took the salt supplement on 07/24/19. PMHx is significant for SIADH. PSHx is significant for knee replacement surgery in April [address] Toussaint. Patient states she was on blood thinners for the surgery , but has since completed this therapy. On medical record review, patient was admitted to the ICU in January 2019 at which time she had a sodium of 118. Patient was placed on fluid restriction and salt supplements. - History of Current Complaint Chief Complaint: EDDysrhythmPalp Time Seen by Provider: 07/24/19 07:35 Hx Obtained From: Patient Onset/Duration: Sudden Onset, Still Present Timing: Constant Severity Initially: Moderate Severity Currently: Moderate Character: Fast Aggravating: Nothing Alleviating: Nothing - Allergy/Home Medications Allergies/Adverse Reactions: Allergies Allergy/AdvReac Type Severity Reaction Status Date / Time No Known Allergies Allergy Verified 07/24/19 07:35 Home Medications: Home Medications Levothyroxine TAB* [Synthroid 100 MCG TAB*] 125 mcg PO QAM 12/12/12 [History Confirmed 07/24/19] Calcium Carbonate/Vitamin D3 [Calcium 600+D Softgel] 1 cap PO QAM 02/07/19 [ History Confirmed 07/24/19] Sodium Chloride TAB* 1 gm PO BID #30 tab 02/17/19 [Rx Confirmed 07/24/19] Irbesartan [Avapro] 150 mg PO QAM 04/19/19 [History Confirmed 07/24/19] amLODIPine TAB* [Norvasc 5 mg TAB*] 10 mg PO QAM 04/19/19 [History Confirmed ] Acetaminophen TAB* [Tylenol TAB*] 975 mg PO Q8HR tab 05/09/19 [Rx Confirmed ] PMH/Surg Hx/FS Hx/Imm Hx Previously Healthy: Yes Endocrine/Hematology History: Reports: Hx Thyroid Disease - hypothyroid, Other Endocrine/Hematological Disorders - SIADH Denies: Hx Diabetes Cardiovascular History: Reports: Hx Hypertension Denies: Other Cardiovascular Problems/Disorders Respiratory History: Denies: Hx Asthma, Hx Chronic Obstructive Pulmonary Disease (COPD), Other Respiratory Problems/Disorders GI History: Reports: Hx Irritable Bowel Denies: Hx Ulcer, Other GI Disorders History: Denies: Other Problems/Disorders Musculoskeletal History: Reports: Hx Arthritis - KNEES Denies: Other Musculoskeletal History Sensory History: Reports: Hx Cataracts - GABINO, Hx Contacts or Glasses - GLASSES Denies: Hx Legally Blind, Hx Deafness, Hx Hearing Aid Opthamlomology History: Reports: Hx Cataracts - GABINO, Hx Contacts or Glasses - GLASSES Denies: Hx Legally Blind EENT History: Denies: Hx Deafness Neurological History: Reports: Other Neuro Impairments/Disorders - RIGHT HIP INJECTION 04/19/19 PER PATIENT Psychiatric History: Reports: Hx Anxiety - HX OF-SITUATIONAL- NO MEDICATION FOR Denies: Other Psychiatric Issues/Disorders - Surgical History Surgical History: Yes Surgery Procedure, Year, and Place: knee replacement 2011, April 2019 Hx Anesthesia Reactions: No Infectious Disease History: No Infectious Disease History: Denies: Hx Hepatitis, Hx Human Immunodeficiency Virus (HIV), Traveled Outside the [place] in Last 30 Days - Family History Known Family History: Negative: Seizure Disorder - Social History Occupation: Retired Alcohol Use: Occasionally Alcohol Amount: 2-3 PER WEEK Hx Substance Use: No Substance Use Type: Reports: None Hx Tobacco Use: No Smoking Status (MU): Never Smoked Tobacco Have You Smoked in the Last Year: No Review of Systems Positive: Palpitations Neurological/Mental Status: Other - Positive tremulous Positive: Weakness - Generalized All Other Systems Reviewed And Are Negative: Yes Physical Exam - Summary Physical Exam Summary: Constitutional: Well-developed, Well-nourished, Alert. (-) Distressed Skin: Warm, Dry HENT: Normocephalic; Atraumatic Eyes: Conjunctiva normal Neck: Musculoskeletal ROM normal neck. (-) JVD, (-) Stridor, (-) Nuchal rigidity Cardio: Rhythm irregularly irregular, Tachycardia, Heart sounds normal; Intact distal pulses; Radial pulses are 2+ and symmetric. (-) Murmur Pulmonary/Chest wall: Effort normal. (-) Respiratory distress, (-) Wheezes, (-) Rales Abd: Soft, (-) tenderness, (-) Distension, (-) Guarding, (-) Rebound Musculoskeletal: (-) Edema Lymph: (-) Cervical adenopathy Neuro: Alert, Oriented x3 Psych: Mood and affect Normal Triage Information Reviewed: Yes Vital Signs On Initial Exam: Initial Vitals Temp Pulse Resp BP Pulse Ox 96.6 F 164 17 121/95 98 07/24/19 07:32 07/24/19 07:32 07/24/19 07:32 07/24/19 07:32 07/24/19 07:32 Vital Signs Reviewed: Yes Procedures - Sedation Patient Received Moderate/Deep Sedation with Procedure: No Diagnostics - Vital Signs Vital Signs Temp Pulse Resp BP Pulse Ox 07/24/19 07:32 96.6 F 164 17 121/95 98 - Laboratory Result Diagrams: 07/24/19 07:42 07/24/19 07:42 Lab Statement: Any lab studies that have been ordered have been reviewed, and results considered in the medical decision making process. - CT Chest/Thorax CTA CT Interpretation Completed By: Radiologist Summary of CT Findings: Chest/Thorax CTA IMPRESSION: No definite evidence of pulmonary embolus is noted. Cardiomegaly is noted. No evidence of aneurysmal dilatation or aortic dissection is noted. There may be prominent vessels suggestive of vascular congestion. Reviewed by Dr. Edmond. - EKG 07:37 Cardiac Rate: Other Rate - 147 BPM EKG Rhythm: Atrial Fibrillation ST Segment: Normal Ectopy: None EKG Comparison: Other - Notable change for new onset atrial fibrillation compared to 05/08/19 Summary of EKG Findings: An EKG at 07:37 reveals atrial fibrillation with 147 BPM, ST depressions in leads I, II, V4, V5, and V6, nml axis, nml intervals. No STEMI. No acute changes. Notable change for new onset atrial fibrillation compared to an EKG on 05/08/19. ED physician has reviewed and interpreted this EKG. 10:14 Cardiac Rate: Other Rate - 110 BPM EKG Rhythm: Atrial Fibrillation ST Segment: Normal Ectopy: None Summary of EKG Findings: An EKG at 10:14 reveals atrial fibrillation with 110 BPM, ST depressions in leads I, II, V4, V5, and V6, nml axis, nml intervals. No STEMI. No acute changes. ED physician has reviewed and interpreted this EKG. Re-Evaluation - Re-Evaluation First Eval Re-Evaluation Time: 08:50 Comment: Labs are notable for Mg 1.6, repleted, d dimer elevated, so will check CTA. Second Eval Re-Evaluation Time: 10:00 Change: Worse - Patient HR improved w IV diltiazem however shortly after patient hypoxic, no complaints. Stopped IVF. CXR ordered. Will order BNP Course/Dx - Course Course Of Treatment: 78 y/o F w hx possible SIADH p/w new onset afib w RVR. - HR 150's, feeling weak. Na 129. EKG w afib w RVR (new). Mg 1.6 repleted. HR dec to 100's w IVF. D dimer elevated (in setting of recent knee replacement w new onset afib). CTA w/o PE. - Given one dose diltiazem 10 mg IV for afib w RVR, HR dec to 110. Given one dose oral dilt. Repeat EKG w afib. - patient noted to be hypoxic after 1 L IVF so fluids stopped. CXR w pulm edema, sent BNP - Diagnoses Provider Diagnoses: Atrial fibrillation, Hyponatremia, Hypoxia - Physician Notifications Discussed Care Of Patient With: Jyotsna Lopez - At 10:10, Dr. Jyotsna Lopez reviewed the patients case and agrees to admit the patient to [facility] with a diagnosis of hyponatremia, hypoxia, and atrial fibrillation. Time Discussed With Above Provider: 10:10 Instructed by Provider To: Admit As Inpatient - Critical Care Time Critical Care Time: 30-74 min - Upon my evaluation, this patient had a high probability of imminent or life-threatening deterioration due to afib w RVR, which required my direct attention, intervention, and personal management. I have personally provided 35 minutes of critical care time exclusive of time spent on separately billable procedures. Time includes review of laboratory data , radiology results, discussion with consultants, and monitoring for potential decompensation. Interventions were performed as documented above. Discharge ED - Sign-Out/Discharge Documenting (check all that apply): Patient Departure - Admit - Discharge Plan Condition: Stable Disposition: ADMITTED TO [facility] Referrals: Jeanine Wells MD [Primary Care Provider] - - Billing Disposition and Condition Condition: STABLE Disposition: Admitted to [facility] - Attestation Statements Document Initiated by Angelica: Yes Documenting Scribe: Precious Crane Provider For Whom Angelica is Documenting (Include Credential): Angely Edmond MD Scribe Attestation: IPrecious, scribed for Angely Edmond MD on 07/24/19 at 1104. Scribe Documentation Reviewed: Yes Provider Attestation: The documentation as recorded by the Precious fermin accurately reflects the service I personally performed and the decisions made by me, Angely Edmond MD Status of Scribe Document: Viewed
[2019-07-24 07:53] LABS: ABS Basophils 0.1 10^3/ul (0-0.2); ABS Eosinophils 0.1 10^3/ul (0-0.6); ABS Lymphocytes 1.7 10^3/ul (1.0-4.8); ABS Neutrophils 6.2 10^3/ul (1.5-7.7); Eosinophil % 0.7 %; Hematocrit 28 % (35-47); Hemoglobin 9.3 g/dL (12.0-16.0); Lymphocyte % 19.1 %; Mean Corpuscular HGB Conc 34 g/dL (31-36); Mean Corpuscular Hemoglobin 30 pg (27-31); Mean Corpuscular Volume 89 fL (80-97); Mean Platelet Volume 7.3 fL (7.4-10.4); Platelet Count 430 10^3/uL (150-450); Red Cell Distribution Width 15 % (10-15)
[2019-07-24] MEDS ORDERED: Diltiazem IV push/loading dose 5 MG/ML 5 ML vial (25 mg) IV SLOW PU ONE ×2 (08:08→09:41)
[2019-07-24 08:12] LABS: Albumin 3.9 g/dL (3.2-5.2); BUN/Creatinine Ratio 21.4 (8-20); Calcium 9.1 mg/dL (8.6-10.3); EGFR African American 79.1 (>60); EGFR Non-African American 65.4 (>60); Globulin 3.8 g/dL (2-4); Magnesium 1.6 mg/dL (1.9-2.7); Potassium 3.9 mmol/L (3.5-5.0); Total Bilirubin 0.4 mg/dL (0.2-1.0); Total Protein 7.7 g/dL (6.4-8.9)
[2019-07-24] MEDS ORDERED: Magnesium Sulfate IV* 3 GM in NS 0.9% 100 ML* 100 ML IVPB ONE (08:14)
--- OUTSIDE RECORDS SUMMARY | 2019-07-24 08:17 | XMS REPORT ---
:1939 Author Organization [facility] Care Team Providers Name Role Phone Unavailable Unavailable Unavailable Problems Condition Condition Condition Status Onset Resolution Last Treating Comments Name Details Category Date Date Treatment Clinician Date Aftercare Aftercare Diagnosis Active 2018-05 Lizandro following following 07-06 Misael joint joint [id number] replacement replacement surgery surgery Essential Essential Diagnosis Active Lizandro (primary) (primary) 05-31 Misael hypertensio hypertensio [id number] n n Hypo-osmola Hypo-osmola Diagnosis Active Lizandro lity and lity and 05-31 Misael hyponatremi hyponatremi [id number] a a Hypothyroid Hypothyroid Diagnosis Active Lizandro ism, ism, 05-31 Misael unspecified unspecified [id number] Presence of Presence of Diagnosis Active 2018-05 Lizandro artificial artificial 07-06 Misael knee joint, knee joint, [id number] bilateral bilateral 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 2018-05 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) (current) 07-13 Misael use of use of [id number] anticoagula anticoagula nts nts 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) (current) Misael use of use of [id number] opiate opiate analgesic analgesic Pain frequent Pain Mgmt Active 2018-05 Elissa pain 07-13 [place] 09:15: [id number] Respiratory dyspnea Respirator Active 2018-05 Elissa present y 07-13 [place] 09:15: [id number] 00 Endo/Luis A anti-coagul Endo/Luis A Resolve 2018-052019-05-16 Elissa ation d 07-13 15:30:00 [place] therapy 09:15: [id number] 00 Sensory impaired Sensory Active 2018-05 Elissa hearing 07-13 [place] 09:15: [id number] 00 Integument surgical Integument Active 2018-05 Elissa wound 07-13 [place] present 09:15: [id number] 00 Nutrition nutritional Nutrition Resolve 2018-052019-05-16 Elissa restriction d 2- 15:30:00 [place] s 09:15: [id number] 00 Neuro confusion Neuro/Emot Active 2018-05 Elissa present ion 07-13 [place] 09:15: [id number] 00 Activity ADL Activity Active 2018-05 Elissa assistance - [place] required 09:15: [id number] 00 Activity self-care Activity Active 2018-05 Elissa deficit 07-13 [place] 09:15: [id number] 00 Safety structural Safety Active 2018-05 Elissa barriers 07-13 [place] present 09:15: [id number] 00 Safety fall risk Safety Active 2018-05 Elissa factor 07-13 [place] present 09:15: [id number] 00 Safety risk for Safety Active 2018-05 Elissa hospitaliza 07-13 [place] tion 09:15: [id number] 00 Medication oral med Meds Resolve 2018-052019-05-16 Elissa assistance d 07-13 15:30:00 [place] required 09:15: [id number] 00 Musculoskel transfer Musculoske Unknown 2018-05 Elissa etal assistance letal 07-13 [place] required 09:15: [id number] 00 Musculoskel requires Musculoske Resolve 2018-052019-05-22 Elissa etal human letal d 07-13 10:00:00 [place] assist to 09:15: [id number] leave home 00 Safety can be left Safety Active 2018-05 Lizandro alone for 07-13 Misael only short 13:05: [id number] periods 00 Strength/To knowledge/s PT: Active 2018-05 Lizandro ne/Motor kill Strength 07-13 Misael Control deficit LE: 13:05: [id number] pt 00 Bed mobility/tr PT/OT: Bed Active 2018-05 Lizandro Mobility/Tr ansfer Mobility/T 07-13 Misael garciafer device ransfer 13:05: [id number] present 00 Bed transfer PT/OT: Bed Active 2018-05 Lizandro Mobility/Tr deficit: Mobility/T 07-13 Misael garciafer shower/tub ransfer 13:05: [id number] 00 Bed transfer PT/OT: Bed Active 2018-05 Lizandro Mobility/Tr deficit: Mobility/T 2-13 [place] ansfer vehicle ransfer 13:05: [id number] 00 Bed knowledge/s PT/OT: Bed Active 2018-05 Lizandro Mobility/Tr kill Mobility/T 2-13 [place] ansfer deficit: pt ransfer 13:05: [id number] 00 Bed bed PT/OT: Bed Active 2018-05 Lizandro Mobility/Tr mobility Mobility/T 2-13 Kobziewicz ansfer deficit ransfer 13:05: [id number] 00 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 PT/OT: Active 2018-05 Lizandro urance rdination Balance/En 2-13 [place] deficit durance 13:05: [id number] 00 OT: Self self-care OT: Active 2018-05 Lizandro Care deficit Self-Care 2-13 [place] 13:05: [id number] 00 OT: Self knowledge/s OT: Active 2018-05 Lizandro Care kill Self-Care 2-13 [place] deficit: pt 13:05: [id number] 00 Gait/Locomo stair PT/OT: Active 2018-05 Lizandro tion management Gait/Locom 2-13 [place] problems req otion 13:05: [id number] 00 Gait/Locomo gait PT/OT: Active 2018-05 Lizandro tion assistive Gait/Locom 2-13 [place] problems device otion 13:05: [id number] present 00 Gait/Locomo knowledge/s PT/OT: Active 2018-05 Lizandro tion kill Gait/Locom 2-13 Kobziewicz problems deficit: pt otion 13:05: [id number] 00 Gait/Locomo gait PT/OT: Active 2018-05 Lizandro tion deficit Gait/Locom 2-13 Kobziewicz problems otion 13:05: [id number] 00 Activity knowledge/s Activity Resolve 2018-052019-05-22 ashley Carcamo d 2-16 10:00:00 [place] deficit: pt 10:26: [id number] 00 Safety knowledge/s Safety Active 2018-05 White, kill 2-16 Jeniffer deficit: pt 10:26: [id number] 00 Safety knowledge/s Safety Active 2018-05 White, kill 2-16 Jeniffer deficit: cg 10:26: [id number] 00 Musculoskel transfer Musculoske Active 2018-05 arvind Carcamo 2-23 [place] required 10:00: [id number] 00 Musculoskel knowledge/s Musculoske Active 2018-05 Carlos Alberto, etal kill letal 07-23 Jeniffer deficit: pt 10:00: [id number] 00 Allergies, Adverse Reactions, Alerts Allergy Allergy Status Severity Reaction(s) Onset Inactive Treating Comments Name Type Date Date Clinician Unknown None Active Unknown None Unknown No Known Allergies For This Patient Medications Ordered Filled Start Stop Current Ordering Indication Dosage Frequency Signature Comments Components Medication Medication Date Date Medication? Clinician (SIG) Name Name acetaminoph acetaminoph 2018-05 Yes Norbert Unknown Unknown en 325 mg en 325 mg 07-13 Lynn VAUGHAN tablet tablet Eliquis 2.5 Eliquis 2.5 2018-05 Yes Norbert Unknown Unknown mg tablet mg tablet 07-13 Lynn VAUGHAN cyclobenzap cyclobenzap 2018-05 Yes Norbert Unknown Unknown rine 10 mg rine 10 mg 07-13 Lynn VAUGHAN tablet tablet traMADol 50 traMADol 50 2018-05 Yes Norbert Unknown Unknown mg tablet mg tablet 07-13 Lynn VAUGHAN docusate docusate 2018-05 Yes Norbert Unknown Unknown sodium 100 sodium 100 07-13 Lynn VAUGHAN mg capsule mg capsule levothyroxi levothyroxi 2018-05 Yes Norbert Unknown Unknown ne 125 mcg ne 125 mcg 07-13 Lynn VAUGHAN tablet tablet Calcium 500 Calcium 500 2018-05 Yes Norbert Unknown Unknown + D 500 mg + D 500 mg 07-13 Lynn VAUGHAN (1,250 (1,250 mg)-400 mg)-400 unit tablet unit tablet sodium sodium 2018-05 Yes Norbert Unknown Unknown chloride 1 chloride 1 07-13 Lynn VAUGHAN gram tablet gram tablet irbesartan irbesartan 2018-05 Yes Norbert Unknown Unknown 150 mg 150 mg 07-13 Lynn VAUGHAN tablet tablet amLODIPine amLODIPine 2018-05 Yes Norbert Unknown Unknown 10 mg 10 mg 07-13 Lynn VAUGHAN tablet tablet acetaminoph acetaminoph 2018-05 Yes Norbert Unknown Unknown en ER 650 en ER 650 07-17 Lynn VAUGHAN mg mg tablet,exte tablet,exte nded nded release release sodium sodium 2018-05 Yes Gongora Unknown Unknown chloride 1 chloride 1 07-17 MD,Abril gram tablet gram tablet Vital Signs Vital Name Observation Time Observation Value Comments SYSTOLIC mm[Hg] 2019-05-22 18:09:30 116 mm[Hg] mm[Hg] Method: Sit SYSTOLIC mm[Hg] 2019-05-12 18:09:20 118 mm[Hg] mm[Hg] Method: Stand DIASTOLIC mm[Hg] 2019-05-22 18:09:30 68 mm[Hg] mm[Hg] Method: Sit DIASTOLIC mm[Hg] 2019-05-12 18:09:20 66 mm[Hg] mm[Hg] Method: Stand PULSE 2019-05-22 18:09:30 80 /min /min RESP RATE 2019-05-16 18:09:24 16 /min /min TEMP 2019-05-24 18:09:32 97.5 [degF] Procedures This patient has no known procedures. Results This patient has no known results.
--- OUTSIDE RECORDS SUMMARY | 2019-07-24 08:17 | XMS REPORT ---
:1939 Author Organization [facility] Care Team Providers Name Role Phone Unavailable Unavailable Unavailable Problems Condition Condition Condition Status Onset Resolution Last Treating Comments Name Details Category Date Date Treatment Clinician Date Aftercare Aftercare Diagnosis Active 2018-05 Lizandro following following 07-06 Misael joint joint [id number] replacement replacement surgery surgery Essential Essential Diagnosis Active Lizandro (primary) (primary) 05-31 Misael hypertensio hypertensio [id number] n n Hypo-osmola Hypo-osmola Diagnosis Active Lizandro lity and lity and 05-31 Misael hyponatremi hyponatremi [id number] a a Hypothyroid Hypothyroid Diagnosis Active Lizandro ism, ism, 05-31 Misael unspecified unspecified [id number] Presence of Presence of Diagnosis Active 2018-05 Lizandro artificial artificial - Misael knee joint, knee joint, [id number] bilateral bilateral 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 2018-05 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) (current) 2 Misael use of use of [id number] anticoagula anticoagula nts nts superintendent 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 terminal long-term Diagnosis Active 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) (current) Misael use of use of [id number] opiate opiate analgesic analgesic Pain frequent Pain Mgmt Resolve 2018-052019-06-02 Elissa pain d 2-13 12:18:00 [place] 09:15: [id number] 00 Respiratory dyspnea Respirator Resolve 2018-052019-06-02 Elissa present y d 2-13 12:18:00 [place] 09:15: [id number] 00 Endo/Luis A anti-coagul Endo/Luis A Resolve 2018-052019-05-16 Elissa ation d 2-13 15:30:00 [place] therapy 09:15: [id number] 00 Sensory impaired Sensory Resolve 2018-052019-06-02 Elissa hearing d 2-13 12:18:00 [place] 09:15: [id number] 00 Integument surgical Integument Resolve 2018-052019-06-02 Elissa wound d 2-13 12:18:00 [place] present 09:15: [id number] 00 Nutrition nutritional Nutrition Resolve 2018-052019-05-16 Elissa restriction d 2-13 15:30:00 [place] s 09:15: [id number] 00 Neuro confusion Neuro/Emot Resolve 2018-052019-06-02 Elissa present ion d 2-13 12:18:00 [place] 09:15: [id number] 00 Activity ADL Activity Resolve 2018-052019-06-02 Elissa assistance d 2-13 12:18:00 [place] required 09:15: [id number] 00 Activity self-care Activity Resolve 2018-052019-06-02 Elissa deficit d 2-13 12:18:00 [place] 09:15: [id number] 00 Safety structural Safety Resolve 2018-052019-06-02 Elissa barriers d 2-13 12:18:00 [place] present 09:15: [id number] 00 Safety fall risk Safety Resolve 2018-052019-06-02 Elissa factor d 2-13 12:18:00 [place] present 09:15: [id number] 00 Safety risk for Safety Resolve 2018-052019-06-02 Elissa hospitaliza d 2-13 12:18:00 [place] tion 09:15: [id number] 00 Medication oral med Meds Resolve 2018-052019-05-16 Elissa assistance d 2-13 15:30:00 [place] required 09:15: [id number] 00 Musculoskel transfer Musculoske Unknown 2018-05 Elissa etal assistance letal 2-13 [place] required 09:15: [id number] 00 Musculoskel requires Musculoske Active 2018-05 Elissa etal human letal 2-13 [place] assist to 09:15: [id number] leave home 00 Safety can be left Safety Resolve 2018-052019-06-02 Lizandro alone for d 2-13 12:18:00 Misael nino short 13:05: [id number] periods 00 Strength/To knowledge/s PT: Resolve 2018-052019-06-02 Lizandro ne/Motor kill Strength d 2-13 12:18:00 Misael Control deficit LE: 13:05: [id number] pt 00 Bed mobility/tr PT/OT: Bed Resolve 2018-052019-06-02 Lizandro Mobility/Tr ansfer Mobility/T d 2-13 12:18:00 Misael bates device ransfer 13:05: [id number] present 00 Bed transfer PT/OT: Bed Resolve 2018-052019-06-02 Lizandro Mobility/Tr deficit: Mobility/T d 2-13 12:18:00 Misael bates shower/tub ransfer 13:05: [id number] 00 Bed transfer PT/OT: Bed Resolve 2018-052019-06-02 Lizandro Mobility/Tr deficit: Mobility/T d 2-13 12:18:00 Misael bates vehicle ransfer 13:05: [id number] 00 Bed knowledge/s PT/OT: Bed Resolve 2018-052019-06-02 Lizandro Mobility/Tr kill Mobility/T d 2-13 12:18:00 Misael bates deficit: pt ransfer 13:05: [id number] 00 Bed bed PT/OT: Bed Resolve 2018-052019-06-02 Lizandro Mobility/Tr mobility Mobility/T d 2-13 12:18:00 Misael bates deficit ransfer 13:05: [id number] 00 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 PT/OT: Resolve 2018-052019-06-02 Lizandro urance rdination Balance/En d 2-13 12:18:00 Misael deficit durance 13:05: [id number] 00 OT: Self self-care OT: Resolve 2018-052019-06-02 Lizandro Care deficit Self-Care d 2-13 12:18:00 [place]ael 13:05: [id number] 00 OT: Self knowledge/s OT: Resolve 2018-052019-06-02 Lizandro Care kill Self-Care d 2-13 12:18:00 Misael deficit: pt 13:05: [id number] 00 Gait/Locomo stair PT/OT: Resolve 2018-052019-06-02 Lizandro tion management Gait/Locom d 2-13 12:18:00 Misael problems req otion 13:05: [id number] 00 Gait/Locomo gait PT/OT: Resolve 2018-052019-06-02 Lizandro tion assistive Gait/Locom d 2-13 12:18:00 Kobz[place] problems device otion 13:05: [id number] present 00 Gait/Locomo knowledge/s PT/OT: Resolve 2018-052019-06-02 Lizandro rod kill Gait/Locom d 2-13 12:18:00 Kobziewicz problems deficit: pt otion 13:05: [id number] 00 Gait/Locomo gait PT/OT: Resolve 2018-052019-06-02 Lizandro tion deficit Gait/Locom d 2-13 12:18:00 [place] problems otion 13:05: [id number] 00 Activity knowledge/s Activity Resolve 2018-052019-05-22 ashley Carcamo d 2-16 10:00:00 [place] deficit: pt 10:26: [id number] 00 Safety knowledge/s Safety Resolve 2018-052019-06-02 ashley Carcamo d 2-16 12:18:00 Jeniffer deficit: pt 10:26: [id number] 00 Safety knowledge/s Safety Resolve 2018-052019-06-02 ashley Carcamo d 2-16 12:18:00 Jen[place] deficit: cg 10:26: [id number] 00 Musculoskel transfer Musculoske Resolve 2018-052019-06-02 demario Carcamol assistance letal d 2-23 12:18:00 [place] required 10:00: [id number] 00 Musculoskel knowledge/s Musculoske Resolve 2018-052019-06-02 demario Carcamol kill letal d 2-23 12:18:00 Jeniffer deficit: pt 10:00: [id number] 00 Allergies, Adverse Reactions, Alerts Allergy Allergy Status Severity Reaction(s) Onset Inactive Treating Comments Name Type Date Date Clinician Unknown None Active Unknown None Unknown No Known Allergies For This Patient Medications Ordered Filled Start Stop Current Ordering Indication Dosage Frequency Signature Comments Components Medication Medication Date Date Medication? Clinician (SIG) Name Name acetaminoph acetaminoph 2018-05- Yes Norbert Unknown Unknown en 325 mg en 325 mg 07-13 Lynn VAUGHAN tablet tablet Eliquis 2.5 Eliquis 2.5 2018-05- Yes Norbert Unknown Unknown mg tablet mg tablet 07-13 Lynn VAUGHAN cyclobenzap cyclobenzap 2018-05- Yes Norbert Unknown Unknown rine 10 mg rine 10 mg 07-13 ,Lynn tablet tablet traMADol 50 traMADol 50 2018-05- Yes Norbert Unknown Unknown mg tablet mg tablet 07-13 ,Lynn docusate docusate 2018-05- Yes Norbert Unknown Unknown sodium 100 sodium 100 07-13 ,Lynn mg capsule mg capsule levothyroxi levothyroxi 2018-05- Yes Norbert Unknown Unknown ne 125 mcg ne 125 mcg 07-13 ,Lynn tablet tablet Calcium 500 Calcium 500 2018-05- Yes Norbert Unknown Unknown + D 500 mg + D 500 mg 07-13 ,Lynn (1,250 (1,250 mg)-400 mg)-400 unit tablet unit tablet sodium sodium 2018-05- Yes Norbert Unknown Unknown chloride 1 chloride 1 07-13 ,Lynn gram tablet gram tablet irbesartan irbesartan 2018-05- Yes Norbert Unknown Unknown 150 mg 150 mg 07-13 ,Lynn tablet tablet amLODIPine amLODIPine 2018-05- Yes Norbert Unknown Unknown 10 mg 10 mg 07-13 ,Lynn tablet tablet acetaminoph acetaminoph 2018-05- Yes Norbert Unknown Unknown en ER 650 en ER 650 07-17 yLnn VAUGHAN mg mg tablet,exte tablet,exte nded nded release release sodium sodium 2018-05- Yes Gongora Unknown Unknown chloride 1 chloride 1 07-17 ,Abril gram tablet gram tablet Vital Signs Vital Name Observation Time Observation Value Comments SYSTOLIC mm[Hg] 2019-06-02 18:09:41 116 mm[Hg] mm[Hg] Method: Sit SYSTOLIC mm[Hg] 2019-05-12 18:09:20 118 mm[Hg] mm[Hg] Method: Stand DIASTOLIC mm[Hg] 2019-06-02 18:09:41 68 mm[Hg] mm[Hg] Method: Sit DIASTOLIC mm[Hg] 2019-05-12 18:09:20 66 mm[Hg] mm[Hg] Method: Stand PULSE 2019-06-02 18:09:41 80 /min /min RESP RATE 2019-06-02 18:09:41 16 /min /min [facility] [place] 2019-06-02 18:09:41 97.8 [degF] Procedures This patient has no known procedures. Results This patient has no known results.
--- OUTSIDE RECORDS SUMMARY | 2019-07-24 08:17 | XMS REPORT ---
:1939 Author Organization [facility] Care Team Providers Name Role Phone Unavailable Unavailable Unavailable Problems Condition Condition Condition Status Onset Resolution Last Treating Comments Name Details Category Date Date Treatment Clinician Date Aftercare Aftercare Diagnosis Active 2018-05 Lizandro following following 07-06 Misael joint joint [id number] replacement replacement surgery surgery Essential Essential Diagnosis Active Lizandro (primary) (primary) 05-31 Misael hypertensio hypertensio [id number] n n Hypo-osmola Hypo-osmola Diagnosis Active Lizandro lity and lity and 05-31 Misael hyponatremi hyponatremi [id number] a a Hypothyroid Hypothyroid Diagnosis Active Lizandro ism, ism, 05-31 Misael unspecified unspecified [id number] Presence of Presence of Diagnosis Active 2018-05 Lizandro artificial artificial 07-06 Misael knee joint, knee joint, [id number] bilateral bilateral [facility] Diagnosis Active 2018-05 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) (current) 07-13 Misael use of use of [id number] anticoagula anticoagula nts nts [facility] Diagnosis Active 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) (current) Misael use of use of [id number] opiate opiate analgesic analgesic Pain frequent Pain Mgmt Active 2018-05 Elissa pain 07-13 [place] 09:15: [id number] 00 Respiratory dyspnea Respirator Active 2018-05 Elissa present y 07-13 [place] 09:15: [id number] 00 Endo/Luis A anti-coagul Endo/Luis A Resolve 2018-052019-05-16 Elissa ation d 07-13 15:30:00 [place] therapy 09:15: [id number] 00 Sensory impaired Sensory Active 2018-05 Elissa hearing 07-13 [place] 09:15: [id number] 00 Integument surgical Integument Active 2018-05 Elissa wound 07-13 [place] present 09:15: [id number] 00 Nutrition nutritional Nutrition Resolve 2018-052019-05-16 Elissa restriction d 2- 15:30:00 [place] s 09:15: [id number] 00 Neuro confusion Neuro/Emot Active 2018-05 Elissa present ion 07-13 [place] 09:15: [id number] 00 Activity ADL Activity Active 2018-05 Elissa assistance - [place] required 09:15: [id number] 00 Activity self-care Activity Active 2018-05 Elissa deficit 07-13 [place] 09:15: [id number] 00 Safety structural Safety Active 2018-05 Elissa barriers 07-13 [place] present 09:15: [id number] 00 Safety fall risk Safety Active 2018-05 Elissa factor 07-13 [place] present 09:15: [id number] 00 Safety risk for Safety Active 2018-05 Elissa hospitaliza 07-13 [place] tion 09:15: [id number] 00 Medication oral med Meds Resolve 2018-052019-05-16 Elissa assistance d 07-13 15:30:00 [place] required 09:15: [id number] 00 Musculoskel transfer Musculoske Unknown 2018-05 Elissa etal assistance letal 07-13 [place] required 09:15: [id number] 00 Musculoskel requires Musculoske Resolve 2018-052019-05-22 Elissa etal human letal d 07-13 10:00:00 [place] assist to 09:15: [id number] leave home 00 Safety can be left Safety Active 2018-05 Lizandro alone for 07-13 Misael only short 13:05: [id number] periods 00 Strength/To knowledge/s PT: Active 2018-05 Lizandro ne/Motor kill Strength 07-13 Misael Control deficit LE: 13:05: [id number] pt 00 Bed mobility/tr PT/OT: Bed Active 2018-05 Lizandro Mobility/Tr ansfer Mobility/T 07-13 Misael garciafer device ransfer 13:05: [id number] present 00 Bed transfer PT/OT: Bed Active 2018-05 Lizandro Mobility/Tr deficit: Mobility/T 07-13 Misael garciafer shower/tub ransfer 13:05: [id number] 00 Bed transfer PT/OT: Bed Active 2018-05 Lizandro Mobility/Tr deficit: Mobility/T 2-13 Kobziewicz ansfer vehicle ransfer 13:05: [id number] 00 Bed knowledge/s PT/OT: Bed Active 2018-05 Lizandro Mobility/Tr kill Mobility/T 2-13 Kobziewicz ansfer deficit: pt ransfer 13:05: [id number] 00 Bed bed PT/OT: Bed Active 2018-05 Lizandro Mobility/Tr mobility Mobility/T 2-13 Kobziewicz ansfer deficit ransfer 13:05: [id number] 00 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 PT/OT: Active 2018-05 Lizandro urance rdination Balance/En 2-13 Kobziewicz deficit durance 13:05: [id number] 00 OT: Self self-care OT: Active 2018-05 Lizandro Care deficit Self-Care 2-13 [place] 13:05: [id number] 00 OT: Self knowledge/s OT: Active 2018-05 Lizandro Care kill Self-Care 2-13 Kobziewicz deficit: pt 13:05: [id number] 00 Gait/Locomo stair PT/OT: Active 2018-05 Lizandro tion management Gait/Locom 2-13 Kobziewicz problems req otion 13:05: [id number] 00 Gait/Locomo gait PT/OT: Active 2018-05 Lizandro tion assistive Gait/Locom 2-13 Kobziewicz problems device otion 13:05: [id number] present 00 Gait/Locomo knowledge/s PT/OT: Active 2018-05 Lizandro tion kill Gait/Locom 2-13 Kobziewicz problems deficit: pt otion 13:05: [id number] 00 Gait/Locomo gait PT/OT: Active 2018-05 Lizandro tion deficit Gait/Locom 2-13 Kobziewicz problems otion 13:05: [id number] 00 Activity knowledge/s Activity Resolve 2018-052019-05-22 ashley Carcamo d 2-16 10:00:00 Jeniffer deficit: pt 10:26: [id number] 00 Safety knowledge/s Safety Active 2018-05 White, kill 2-16 Jeniffer deficit: pt 10:26: [id number] 00 Safety knowledge/s Safety Active 2018-05 White, kill 2-16 Jeniffer deficit: cg 10:26: [id number] 00 Musculoskel transfer Musculoske Active 2018-05 arvind Carcamo 2-23 [place] required 10:00: [id number] 00 Musculoskel knowledge/s Musculoske Active 2018-05 Carlos Alberto, etal kill letal 07-23 Jeniffer deficit: pt 10:00: [id number] 00 Allergies, Adverse Reactions, Alerts Allergy Allergy [...]
--- OUTSIDE RECORDS SUMMARY | 2019-07-24 08:17 | XMS REPORT ---
:1939 Author Organization [facility] Care Team Providers Name Role Phone Unavailable Unavailable Unavailable Problems Condition Condition Condition Status Onset Resolution Last Treating Comments Name Details Category Date Date Treatment Clinician Date Aftercare Aftercare Diagnosis Active 2018-05 Lizandro following following 07-06 Misael joint joint [id number] replacement replacement surgery surgery Essential Essential Diagnosis Active Lizandro (primary) (primary) 05-31 Misael hypertensio hypertensio [id number] n n Hypo-osmola Hypo-osmola Diagnosis Active Lizandro lity and lity and 05-31 Misael hyponatremi hyponatremi [id number] a a Hypothyroid Hypothyroid Diagnosis Active Lizandro ism, ism, 05-31 Misael unspecified unspecified [id number] Presence of Presence of Diagnosis Active 2018-05 Lizandro artificial artificial - Misael knee joint, knee joint, [id number] 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) (current) 2 Misael use of use of [id number] anticoagula anticoagula nts nts 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 group home Diagnosis Active 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) (current) Misael use of use of [id number] opiate opiate analgesic analgesic Pain frequent Pain Mgmt Resolve 2018-052019-06-02 Elissa pain d 2-13 12:18:00 [place] 09:15: [id number] 00 Respiratory dyspnea Respirator Resolve 2018-052019-06-02 Elissa present y d 2-13 12:18:00 [place] 09:15: [id number] 00 Endo/Luis A anti-coagul Endo/Luis A Resolve 2018-052019-05-16 Elissa ation d 2-13 15:30:00 [place] therapy 09:15: [id number] 00 Sensory impaired Sensory Resolve 2018-052019-06-02 Elissa hearing d 2-13 12:18:00 [place] 09:15: [id number] 00 Integument surgical Integument Resolve 2018-052019-06-02 Elissa wound d 2-13 12:18:00 [place] present 09:15: [id number] 00 Nutrition nutritional Nutrition Resolve 2018-052019-05-16 Elissa restriction d 2-13 15:30:00 [place] 09:15: [id number] 00 Neuro confusion Neuro/Emot Resolve 2018-052019-06-02 Elissa present ion d 2-13 12:18:00 [place] 09:15: [id number] 00 Activity ADL Activity Resolve 2018-052019-06-02 Elissa assistance d 2-13 12:18:00 [place] required 09:15: [id number] 00 Activity self-care Activity Resolve 2018-052019-06-02 Elissa deficit d 2-13 12:18:00 [place] 09:15: [id number] 00 Safety structural Safety Resolve 2018-052019-06-02 Elissa barriers d 2-13 12:18:00 [place] present 09:15: [id number] 00 Safety fall risk Safety Resolve 2018-052019-06-02 Elissa factor d 2-13 12:18:00 [place] present 09:15: [id number] 00 Safety risk for Safety Resolve 2018-052019-06-02 Elissa hospitaliza d 2-13 12:18:00 [place] tion 09:15: [id number] 00 Medication oral med Meds Resolve 2018-052019-05-16 Elissa assistance d 2-13 15:30:00 [place] required 09:15: [id number] 00 Musculoskel transfer Musculoske Unknown 2018-05 Elissa etal assistance letal 2-13 [place] required 09:15: [id number] 00 Musculoskel requires Musculoske Active 2018-05 Elissa etal human letal 2-13 [place] assist to 09:15: [id number] leave home 00 Safety can be left Safety Resolve 2018-052019-06-02 Lizandro alone for d 2-13 12:18:00 Misael nino short 13:05: [id number] periods 00 Strength/To knowledge/s PT: Resolve 2018-052019-06-02 Lizandro ne/Motor kill Strength d 2-13 12:18:00 Misael Control deficit LE: 13:05: [id number] pt 00 Bed mobility/tr PT/OT: Bed Resolve 2018-052019-06-02 Lizandro Mobility/Tr ansfer Mobility/T d 2-13 12:18:00 Misael bates device ransfer 13:05: [id number] present 00 Bed transfer PT/OT: Bed Resolve 2018-052019-06-02 Lizandro Mobility/Tr deficit: Mobility/T d 2-13 12:18:00 Misael bates shower/tub ransfer 13:05: [id number] 00 Bed transfer PT/OT: Bed Resolve 2018-052019-06-02 Lizandro Mobility/Tr deficit: Mobility/T d 2-13 12:18:00 Misael bates vehicle ransfer 13:05: [id number] 00 Bed knowledge/s PT/OT: Bed Resolve 2018-052019-06-02 Lizandro Mobility/Tr kill Mobility/T d 2-13 12:18:00 Misael bates deficit: pt ransfer 13:05: [id number] 00 Bed bed PT/OT: Bed Resolve 2018-052019-06-02 Lizandro Mobility/Tr mobility Mobility/T d 2-13 12:18:00 Misael bates deficit ransfer 13:05: [id number] 00 Balance/End balance/edi coordinator PT/OT: Resolve 2018-052019-06-02 Lizandro urance rdination Balance/En d 2-13 12:18:00 Misael deficit durance 13:05: [id number] 00 OT: Self self-care OT: Resolve 2018-052019-06-02 Lizandro Care deficit Self-Care d 2-13 12:18:00 [place]ael 13:05: [id number] 00 OT: Self knowledge/s OT: Resolve 2018-052019-06-02 Lizandro Care kill Self-Care d 2-13 12:18:00 Misael deficit: pt 13:05: [id number] 00 Gait/Locomo stair PT/OT: Resolve 2018-052019-06-02 Lizandro tion management Gait/Locom d 2-13 12:18:00 Misael problems req otion 13:05: [id number] 00 Gait/Locomo gait PT/OT: Resolve 2018-052019-06-02 Lizandro tion assistive Gait/Locom d 2-13 12:18:00 [place] problems device otion 13:05: [id number] present 00 Gait/Locomo knowledge/s PT/OT: Resolve 2018-052019-06-02 Lizandro rod kill Gait/Locom d 2-13 12:18:00 [place] problems deficit: pt otion 13:05: [id number] 00 Gait/Locomo gait PT/OT: Resolve 2018-052019-06-02 Lizandro tion deficit Gait/Locom d 2-13 12:18:00 [place] problems otion 13:05: [id number] 00 Activity knowledge/s Activity Resolve 2018-052019-05-22 ashley Carcamo d 2-16 10:00:00 [place] deficit: pt 10:26: [id number] 00 Safety knowledge/s Safety Resolve 2018-052019-06-02 ashley Carcamo d 2-16 12:18:00 [place] deficit: pt 10:26: [id number] 00 Safety knowledge/s Safety Resolve 2018-052019-06-02 ashley Carcamo d 2-16 12:18:00 [place] deficit: cg 10:26: [id number] 00 Musculoskel transfer Musculoske Resolve 2018-052019-06-02 demario Carcamol assistance letal d 2-23 12:18:00 [place] required 10:00: [id number] 00 Musculoskel knowledge/s Musculoske Resolve 2018-052019-06-02 demario Carcamol kill letal d 2-23 12:18:00 [place] deficit: pt 10:00: [id number] 00 Allergies, Adverse Reactions, Alerts Allergy Allergy [...] RESP RATE 2019-06-02 18:09:41 16 /min /min [facility] 2019-06-02 18:09:41 97.8 [degF] Procedures This patient has no known procedures. Results This patient has no known results.
--- OUTSIDE RECORDS SUMMARY | 2019-07-24 08:17 | XMS REPORT ---
:1939 Author Organization [facility] Care Team Providers Name Role Phone Unavailable Unavailable Unavailable Problems Condition Condition Condition Status Onset Resolution Last Treating Comments Name Details Category Date Date Treatment Clinician Date Aftercare Aftercare Diagnosis Active 2018-05 Lizandro following following 07-06 Misael joint joint [id number] replacement replacement surgery surgery Essential Essential Diagnosis Active Lizandro (primary) (primary) 05-31 Misael hypertensio hypertensio [id number] n n Hypo-osmola Hypo-osmola Diagnosis Active Lizandro lity and lity and 05-31 Misael hyponatremi hyponatremi [id number] a a Hypothyroid Hypothyroid Diagnosis Active Lizandro ism, ism, 05-31 Misael unspecified unspecified [id number] Presence of Presence of Diagnosis Active 2018-05 Lizandro artificial artificial - Misael knee joint, knee joint, [id number] 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) (current) 2 Misael use of use of [id number] anticoagula anticoagula nts nts snf 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) (current) Misael use of use of [id number] opiate opiate analgesic analgesic Pain frequent Pain Mgmt Resolve 2018-052019-06-02 Elissa pain d 2-13 12:18:00 [place] 09:15: [id number] 00 Respiratory dyspnea Respirator Resolve 2018-052019-06-02 Elissa present y d 2-13 12:18:00 [place] 09:15: [id number] 00 Endo/Luis A anti-coagul Endo/Luis A Resolve 2018-052019-05-16 Elissa ation d 2-13 15:30:00 [place] therapy 09:15: [id number] 00 Sensory impaired Sensory Resolve 2018-052019-06-02 Elissa hearing d 2-13 12:18:00 [place] 09:15: [id number] 00 Integument surgical Integument Resolve 2018-052019-06-02 Elissa wound d 2-13 12:18:00 [place] present 09:15: [id number] 00 Nutrition nutritional Nutrition Resolve 2018-052019-05-16 Elissa restriction d 2-13 15:30:00 [place] s 09:15: [id number] 00 Neuro confusion Neuro/Emot Resolve 2018-052019-06-02 Elissa present ion d 2-13 12:18:00 [place] 09:15: [id number] 00 Activity ADL Activity Resolve 2018-052019-06-02 Elissa assistance d 2-13 12:18:00 [place] required 09:15: [id number] 00 Activity self-care Activity Resolve 2018-052019-06-02 Elissa deficit d 2-13 12:18:00 [place] 09:15: [id number] 00 Safety structural Safety Resolve 2018-052019-06-02 Elissa barriers d 2-13 12:18:00 [place] present 09:15: [id number] 00 Safety fall risk Safety Resolve 2018-052019-06-02 Elissa factor d 2-13 12:18:00 [place] present 09:15: [id number] 00 Safety risk for Safety Resolve 2018-052019-06-02 Elissa hospitaliza d 2-13 12:18:00 [place] tion 09:15: [id number] 00 Medication oral med Meds Resolve 2018-052019-05-16 Elissa assistance d 2-13 15:30:00 [place] required 09:15: [id number] 00 Musculoskel transfer Musculoske Unknown 2018-05 Elissa etal assistance letal 2-13 [place] required 09:15: [id number] 00 Musculoskel requires Musculoske Active 2018-05 Elissa etal human letal 2-13 [place] assist to 09:15: [id number] leave home 00 Safety can be left Safety Resolve 2018-052019-06-02 Lizandro alone for d 2-13 12:18:00 Misael nino short 13:05: [id number] periods 00 Strength/To knowledge/s PT: Resolve 2018-052019-06-02 Lizandro ne/Motor kill Strength d 2-13 12:18:00 Misael Control deficit LE: 13:05: [id number] pt 00 Bed mobility/tr PT/OT: Bed Resolve 2018-052019-06-02 Lizandro Mobility/Tr ansfer Mobility/T d 2-13 12:18:00 Misael bates device ransfer 13:05: [id number] present 00 Bed transfer PT/OT: Bed Resolve 2018-052019-06-02 Lizandro Mobility/Tr deficit: Mobility/T d 2-13 12:18:00 Misael bates shower/tub ransfer 13:05: [id number] 00 Bed transfer PT/OT: Bed Resolve 2018-052019-06-02 Lizandro Mobility/Tr deficit: Mobility/T d 2-13 12:18:00 Misael bates vehicle ransfer 13:05: [id number] 00 Bed knowledge/s PT/OT: Bed Resolve 2018-052019-06-02 Lizandro Mobility/Tr kill Mobility/T d 2-13 12:18:00 Misael bates deficit: pt ransfer 13:05: [id number] 00 Bed bed PT/OT: Bed Resolve 2018-052019-06-02 Lizandro Mobility/Tr mobility Mobility/T d 2-13 12:18:00 Misael bates deficit ransfer 13:05: [id number] 00 Balance/End balance/operations support coordinator PT/OT: Resolve 2018-052019-06-02 Lizandro urance rdination Balance/En d 2-13 12:18:00 Misael deficit durance 13:05: [id number] 00 OT: Self self-care OT: Resolve 2018-052019-06-02 Lizandro Care deficit Self-Care d 2-13 12:18:00 [place] 13:05: [id number] 00 OT: Self knowledge/s OT: Resolve 2018-052019-06-02 Lizandro Care kill Self-Care d 2-13 12:18:00 Misael deficit: pt 13:05: [id number] 00 Gait/Locomo stair PT/OT: Resolve 2018-052019-06-02 Lizandro tion management Gait/Locom d 2-13 12:18:00 Misael problems req otion 13:05: [id number] 00 Gait/Locomo gait PT/OT: Resolve 2018-052019-06-02 Lizandro tion assistive Gait/Locom d 2-13 12:18:00 [place] problems device otion 13:05: [id number] present 00 Gait/Locomo knowledge/s PT/OT: Resolve 2018-052019-06-02 Lizandro rod kill Gait/Locom d 2-13 12:18:00 [place] problems deficit: pt otion 13:05: [id number] 00 Gait/Locomo gait PT/OT: Resolve 2018-052019-06-02 Lizandro tion deficit Gait/Locom d 2-13 12:18:00 [place] problems otion 13:05: [id number] 00 Activity knowledge/s Activity Resolve 2018-052019-05-22 ashley Carcamo d 2-16 10:00:00 [place] deficit: pt 10:26: [id number] 00 Safety knowledge/s Safety Resolve 2018-052019-06-02 ashley Carcamo d 2-16 12:18:00 [place] deficit: pt 10:26: [id number] 00 Safety knowledge/s Safety Resolve 2018-052019-06-02 ashley Carcamo d 2-16 12:18:00 [place] deficit: cg 10:26: [id number] 00 Musculoskel transfer Musculoske Resolve 2018-052019-06-02 demario Carcamol assistance letal d 2-23 12:18:00 [place] required 10:00: [id number] 00 Musculoskel knowledge/s Musculoske Resolve 2018-052019-06-02 demario Carcamol kill letal d 2-23 12:18:00 [place] deficit: pt 10:00: [id number] 00 Allergies, Adverse Reactions, Alerts Allergy Allergy [...] RESP RATE 2019-06-02 18:09:41 16 /min /min [facility] 2019-06-02 18:09:41 97.8 [degF] Procedures This patient has no known procedures. Results This patient has no known results.
--- OUTSIDE RECORDS SUMMARY | 2019-07-24 08:17 | XMS REPORT ---
:1939 Author Organization [facility] Care Team Providers Name Role Phone Unavailable Unavailable Unavailable Problems Condition Condition Condition Status Onset Resolution Last Treating Comments Name Details Category Date Date Treatment Clinician Date Aftercare Aftercare Diagnosis Active 2018-05 Lizandro following following 07-06 Misael joint joint [id number] replacement replacement surgery surgery Essential Essential Diagnosis Active Lizandro (primary) (primary) 05-31 Misael hypertensio hypertensio [id number] n n Hypo-osmola Hypo-osmola Diagnosis Active Lizandro lity and lity and 05-31 Misael hyponatremi hyponatremi [id number] a a Hypothyroid Hypothyroid Diagnosis Active Lizandro ism, ism, 05-31 Misael unspecified unspecified [id number] Presence of Presence of Diagnosis Active 2018-05 Lizandro artificial artificial 07-06 Misael knee joint, knee joint, [id number] 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-05 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) (current) 07-13 Misael use of use of [id number] anticoagula anticoagula nts nts [facility] 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) (current) Misael use of use of [id number] opiate opiate analgesic analgesic Pain frequent Pain Mgmt Active 2018-05 Elissa pain 07-13 [place] 09:15: [id number] 00 Respiratory dyspnea Respirator Active 2018-05 Elissa present y 07-13 [place] 09:15: [id number] 00 Endo/Luis A anti-coagul Endo/Luis A Resolve 2018-052019-05-16 Elissa ation d 07-13 15:30:00 [place] therapy 09:15: [id number] 00 Sensory impaired Sensory Active 2018-05 Elissa hearing 07-13 [place] 09:15: [id number] 00 Integument surgical Integument Active 2018-05 Elissa wound 07-13 [place] present 09:15: [id number] 00 Nutrition nutritional Nutrition Resolve 2018-052019-05-16 Elissa restriction d 2- 15:30:00 [place] s 09:15: [id number] 00 Neuro confusion Neuro/Emot Active 2018-05 Elissa present ion 07-13 [place] 09:15: [id number] 00 Activity ADL Activity Active 2018-05 Elissa assistance - [place] required 09:15: [id number] 00 Activity self-care Activity Active 2018-05 Elissa deficit 07-13 [place] 09:15: [id number] 00 Safety structural Safety Active 2018-05 Elissa barriers 07-13 [place] present 09:15: [id number] 00 Safety fall risk Safety Active 2018-05 Elissa factor 07-13 [place] present 09:15: [id number] 00 Safety risk for Safety Active 2018-05 Elissa hospitaliza 07-13 [place] tion 09:15: [id number] 00 Medication oral med Meds Resolve 2018-052019-05-16 Elissa assistance d 07-13 15:30:00 [place] required 09:15: [id number] 00 Musculoskel transfer Musculoske Unknown 2018-05 Elissa etal assistance letal 07-13 [place] required 09:15: [id number] 00 Musculoskel requires Musculoske Resolve 2018-052019-05-22 Elissa etal human letal d 07-13 10:00:00 [place] assist to 09:15: [id number] leave home 00 Safety can be left Safety Active 2018-05 Lizandro alone for 07-13 Misael only short 13:05: [id number] periods 00 Strength/To knowledge/s PT: Active 2018-05 Lizandro ne/Motor kill Strength 07-13 Misael Control deficit LE: 13:05: [id number] pt 00 Bed mobility/tr PT/OT: Bed Active 2018-05 Lizandro Mobility/Tr ansfer Mobility/T 07-13 Misael garciafer device ransfer 13:05: [id number] present 00 Bed transfer PT/OT: Bed Active 2018-05 Lizandro Mobility/Tr deficit: Mobility/T 07-13 Misael garciafer shower/tub ransfer 13:05: [id number] 00 Bed transfer PT/OT: Bed Active 2018-05 Lizandro Mobility/Tr deficit: Mobility/T 2-13 [place] ansfer vehicle ransfer 13:05: [id number] 00 Bed knowledge/s PT/OT: Bed Active 2018-05 Lizandro Mobility/Tr kill Mobility/T 2-13 [place] ansfer deficit: pt ransfer 13:05: [id number] 00 Bed bed PT/OT: Bed Active 2018-05 Lizandro Mobility/Tr mobility Mobility/T 2-13 [place] ansfer deficit ransfer 13:05: [id number] 00 Balance/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 balance/pastry cook PT/OT: Active 2018-05 Lizandro urance rdination Balance/En 2-13 [place] deficit durance 13:05: [id number] 00 OT: Self self-care OT: Active 2018-05 Lizandro Care deficit Self-Care 2-13 [place] 13:05: [id number] 00 OT: Self knowledge/s OT: Active 2018-05 Lizandro Care kill Self-Care 2-13 [place] deficit: pt 13:05: [id number] 00 Gait/Locomo stair PT/OT: Active 2018-05 Lizandro tion management Gait/Locom 2-13 [place] problems req otion 13:05: [id number] 00 Gait/Locomo gait PT/OT: Active 2018-05 Lizandro tion assistive Gait/Locom 2-13 [place] problems device otion 13:05: [id number] present 00 Gait/Locomo knowledge/s PT/OT: Active 2018-05 Lizandro tion kill Gait/Locom 2-13 [place] problems deficit: pt otion 13:05: [id number] 00 Gait/Locomo gait PT/OT: Active 2018-05 Lizandro tion deficit Gait/Locom 2-13 [place] problems otion 13:05: [id number] 00 Activity knowledge/s Activity Resolve 2018-052019-05-22 ashley Carcamo d 2-16 10:00:00 [place] deficit: pt 10:26: [id number] 00 Safety knowledge/s Safety Active 2018-05 [place], kill 2-16 Jeniffer deficit: pt 10:26: [id number] 00 Safety knowledge/s Safety Active 2018-05 [place], kill 2-16 Jeniffer deficit: cg 10:26: [id number] 00 Musculoskel transfer Musculoske Active 2018-05 arvind Carcamo 2-23 [place] required 10:00: [id number] 00 Musculoskel knowledge/s Musculoske Active 2018-05 Carlos Alberto, etal kill letal 07-23 Jeniffer deficit: pt 10:00: [id number] 00 Allergies, Adverse Reactions, Alerts Allergy Allergy [...] Observation Time Observation Value Comments SYSTOLIC mm[Hg] 2019-05-30 18:09:38 116 mm[Hg] mm[Hg] Method: Sit SYSTOLIC mm[Hg] 2019-05-12 18:09:20 118 mm[Hg] mm[Hg] Method: Stand DIASTOLIC mm[Hg] 2019-05-30 18:09:38 68 mm[Hg] mm[Hg] Method: Sit DIASTOLIC mm[Hg] 2019-05-12 18:09:20 66 mm[Hg] mm[Hg] Method: Stand PULSE 2019-05-30 18:09:38 80 /min /min RESP RATE 2019-05-16 18:09:24 16 /min /min TEMP 2019-05-24 18:09:32 97.5 [degF] Procedures This patient has no known procedures. Results This patient has no known results.
--- OUTSIDE RECORDS SUMMARY | 2019-07-24 08:17 | XMS REPORT | Continuity of Care Document ---
:1940 External Reference #:[id number] Author Name Lynn Toussaint M.D. (transmitted by agent of provider Lora Irizarry) Address [address] [facility] [place] [address] Care Team Providers Name Role Phone Enriqueta Mas MD - Internal Medicine Care Team Information Front End Web Designer Abril Gongora M.D. - Family Medicine Care Team Information Front End Web Designer Problems Active Problems Provider Date Localized, primary osteoarthritis Lynn Toussaint M.D. Onset: 02/02/2018 Arthroplasty of knee Lynn Toussaint M.D. Onset: 02/02/2018 Localized, primary osteoarthritis of the pelvic Lynn Toussaint M.D. Onset: 11/2018 region and thigh Social History Type Date Description Comments Sex Unknown ETOH Use Occasionally consumes alcohol Tobacco Use Start: Unknown Patient has never smoked Smoking Status Reviewed: 06/14/19 Patient has never smoked Exercise Type/Frequency Exercises regularly Allergies, Adverse Reactions, Alerts Description No Known Drug Allergies Medications Active Medications SIG Qnty Indications Ordering Date Provider Colace 1 tab by mouth 90caps Lnyn Toussaint, 05/10/2019 100mg Capsules 2-3 times a day M.D. as needed Eliquis take one tab by 60tabs Lynn Toussaint, 05/10/2019 2.5mg Tablets mouth twice daily M.D. x 4 weeks Cyclobenzaprine HCL take 1 tab by 90tabs Lynn Toussaint, 05/10/2019 10mg mouth 2-3 times a M.D. Tablets day as needed Tramadol HCL 1 tab every 4-6 42tabs Lynn Toussaint, 05/10/2019 50mg Tablets hours as needed M.D. for pain Amlodipine Besylate Take 1 Tablet 90tabs I10 Jeanine Wells, 04/10/2019 10mg Daily M.D. Tablets Ultracet 1 tab every 8 30tabs Jeanine Wells, 04/10/2019 37.5-325mg Tablets hours as needed M.D. for pain Irbesartan 1 by mouth every 90tabs I10 Jeanine Wells, 02/24/2019 150mg Tablets day M.D. Levothyroxine Sodium 1 by mouth every 90tabs Abril Gongora MD 125mcg day before Tablets breakfast Probiotic Colon Support once a day Unknown Capsules Sodium Chloride take one tab by Unknown 1gm Tablets mouth twice a day, with food. History Medications Amlodipine Besylate 1 by mouth every day 30tabs I10 Abril Gongora MD 2018 - 02/17/2019 10mg Tablets Clonidine HCL 1 by mouth 1-2x/day 14tabs I10 Abril Gongora MD 01/27/2019 - 0.1mg as needed for 02/13/2019 Tablets uncontrolled hypertension Medications Administered in Office Medication SIG Qnty Indications Ordering Provider Date No Injection Lynn Toussaint M.D. 04/19/2019 Injection Depomedrol 40MG Lynn Toussaint M.D. 04/19/2019 Injection Depomedrol 40MG Lynn Toussaint M.D. 12/26/2018 Injection Synvisc Or Synvisc-One Injection Sd Toussaint M.D. 11/18/2018 MG Injection Synvisc Or Synvisc-One Injection 1 Lynn Toussaint M.D. 11/11/2018 MG Injection Synvisc Or Synvisc-One Injection Sd Toussaint M.D. 11/04/2018 MG Injection Depomedrol 40MG Lynn Toussaint M.D. 09/07/2018 Injection Depomedrol 40MG Lynn Toussaint M.D. 02/02/2018 Injection Immunizations CPT Code Status Date Vaccine Reaction Lot # 31301 Given 04/10/2019 Tdap - adminstered to left [id number] Tetanus/Diptheria/Acellul deltoid, well tolerated, no ar Pertussis remarkable notings, bandaid applied, consents signed [id number] Given 01/27/2019 Influ Virus Vaccine, Quadrivalent, Split Virus, Im Fluzone not PF Vital Signs Date Vital Result Comment 06/14/2019 9:49am Height 63 inches 5'3" Weight 168.00 lb Heart Rate 80 /min BP Systolic 114 mmHg BP Diastolic 60 mmHg Respiratory Rate 18 /min Pain Level 2 BMI (Body Mass Index) 29.8 kg/m2 05/17/2019 3:19pm Height 63 inches 5'3" Weight 168.00 lb Heart Rate 88 /min BP Systolic 140 mmHg BP Diastolic 88 mmHg Respiratory Rate 18 /min Body Temperature 98.2 F Pain Level 1 BMI (Body Mass Index) 29.8 kg/m2 Results Test Acquired Date Facility Test Result H/L Range Note Basic Metabolic 05/03/2019 [facility] Sodium 131 mmol/L Low 135-[address] [place] [address] [phone] Chloride 98 mmol/L Low 101-111 Co2 Carbon Dioxide 26 mmol/L Normal 22-32 Glucose 105 mg/dL High 70-100 Blood Urea Nitrogen 34 mg/dL High 6-24 Creatinine 1.11 mg/dL High 0.51-0.95 BUN/Creatinine Ratio 30.6 High 8-20 Calcium 9.3 mg/dL Normal 8.6-10.3 Egfr Non- 47.4 >60 Egfr 57.4 >60 1 Potassium 5.1 mmol/L High 3.5-5.0 Anion Gap 7 mmol/L Normal 2-11 Urinalysis Profile 04/19/2019 [facility] Urine Color Yellow [address] [place] [address] [phone] Urine Appearance Cloudy Urine Specific [place] 1.019 Normal 1.010-1.030 Urine pH 5.0 Normal 5-9 Urine Urobilinogen Negative Negative Urine Ketones Negative Negative Urine Protein Negative Negative Urine Leukocytes 3+ Abnormal Negative Urine Blood 1+ Abnormal Negative Urine Nitrite Negative Negative Urine Bilirubin Negative Negative Urine Glucose Negative Negative Urine White Blood Cell 3+(>20/hpf) Abnormal Absent Urine Red Blood Cell 1+(3-5/hpf) Abnormal Absent Urine Bacteria Absent Absent Urine Squamous Epithelial Cell Present Abnormal Absent CBC Auto 04/19/2019 [facility] White Blood 9.6 10^3/uL Normal 3.5-10.[address] Count [place], [place] [id number] [phone] Red Blood Count 3.71 10^6/uL Normal 3.70-4.87 Hemoglobin 11.8 g/dL Low 12.0-16.0 Hematocrit 35 % Normal 35-47 Mean Corpuscular Volume 93 fL Normal 80-97 Mean Corpuscular Hemoglobin 32 pg High 27-31 Mean Corpuscular HGB Conc 34 g/dL Normal 31-36 Red Cell Distribution Width 14 % Normal 10-15 Platelet Count 302 10^3/uL Normal 150-450 Mean Platelet Volume 8.6 fL Normal 7.4-10.4 Abs Neutrophils 7.8 10^3/uL High 1.5-7.7 Abs Lymphocytes 1.4 10^3/uL Normal 1.0-4.8 Abs Monocytes 0.3 10^3/uL Normal 0-0.8 Abs Eosinophils 0.1 10^3/uL Normal 0-0.6 Abs Basophils 0.1 10^3/uL Normal 0-0.2 Abs Nucleated RBC 0.0 10^3/uL Granulocyte % 81.2 % Lymphocyte % 14.8 % Monocyte % 2.8 % Eosinophil % 0.6 % Basophil % 0.6 % Nucleated Red Blood Cells % 0.0 Inr/Protime 04/19/2019 [facility] Inr 0.97 Normal 0.82-1.[address] [place], [place] [id number] [phone] Laboratory test 04/19/2019 [facility] Partial 30.1 Normal 26.0 -38.[address] [place] [address] Time PTT [phone] Type & Screen 04/19/2019 [facility] Patient A Positive [address] Blood Type [place], [place] [address] [phone] Antibody Screen NEGATIVE Urine Culture And 04/19/2019 [facility] Urine SEE RESULT [address] [place] [address] [phone] Basic Metabolic 04/11/2019 [facility] Sodium 135 mmol/L Normal 135-[address] [place] [address] [phone] Potassium 4.9 mmol/L Normal 3.5-5.0 Chloride 101 mmol/L Normal 101-111 Co2 Carbon Dioxide 26 mmol/L Normal 22-32 Anion Gap 8 mmol/L Normal 2-11 Glucose 90 mg/dL Normal 70-100 Blood Urea Nitrogen 27 mg/dL High 6-24 Creatinine 0.93 mg/dL Normal 0.51-0.95 BUN/Creatinine Ratio 29.0 High 8-20 Calcium 9.6 mg/dL Normal 8.6-10.3 Egfr Non- 58.2 >60 Egfr 70.4 >60 4 Basic Metabolic 04/05/2019 [facility] Sodium 134 mmol/L Low 135-145 Panel [address] [place] [address] [phone] Potassium 4.9 mmol/L Normal 3.5-5.0 Chloride 102 mmol/L Normal 101-111 Co2 Carbon Dioxide 25 mmol/L Normal 22-32 Anion Gap 7 mmol/L Normal 2-11 Glucose 83 mg/dL Normal 70-100 Blood Urea Nitrogen 29 mg/dL High 6-24 Creatinine 0.99 mg/dL High 0.51-0.95 BUN/Creatinine Ratio 29.3 High 8-20 Calcium 9.3 mg/dL Normal 8.6-10.3 Egfr Non- 54.1 >60 Egfr 65.5 >60 5 Basic Metabolic 03/01/2019 [facility] Sodium 132 mmol/L Low 135-145 Panel [address] [place] [address] [phone] Potassium 4.2 mmol/L Normal 3.5-5.0 Chloride 98 mmol/L Low 101-111 Co2 Carbon Dioxide 27 mmol/L Normal 22-32 Anion Gap 7 mmol/L Normal 2-11 Glucose 97 mg/dL Normal 70-100 Blood Urea Nitrogen 27 mg/dL High 6-24 Creatinine 1.05 mg/dL High 0.51-0.95 BUN/Creatinine Ratio 25.7 High 8-20 Calcium 9.1 mg/dL Normal 8.6-10.3 Egfr Non- 50.6 >60 Egfr 61.2 >60 6 Basic Metabolic 02/24/2019 [facility] Sodium 126 mmol/L Low 135-145 Panel [address] [place] [address] [phone] Potassium 5.0 mmol/L Normal 3.5-5.0 Chloride 92 mmol/L Low 101-111 Co2 Carbon Dioxide 26 mmol/L Normal 22-32 Anion Gap 8 mmol/L Normal 2-11 Glucose 103 mg/dL High 70-100 Blood Urea Nitrogen 22 mg/dL Normal 6-24 Creatinine 0.73 mg/dL Normal 0.51-0.95 BUN/Creatinine Ratio 30.1 High 8-20 Calcium 9.3 mg/dL Normal 8.6-10.3 Egfr Non- 76.9 >60 Egfr 93.1 >60 7 Urinalysis Profile 02/14/2019 [facility] Urine Color Yellow [address] [place], [place] [id number] [phone] Urine Appearance Cloudy Urine Specific [place] 1.013 Normal 1.010-1.030 Urine pH 7.0 Normal [...] Cell Present Abnormal Absent Electrolytes Random 02/14/2019 [facility] Urine Sodium 90 mmol/ L Urine [address] [place] [address] [phone] Urine Potassium Concentration 69.7 mmol/L Urine Chloride Concentration 109 mmol/L Laboratory test 02/14/2019 [facility] Osmolality 474 Normal 100-[address] Urine mOsm/kg [place], [place] [address] [phone] Urine Culture 02/14/2019 [facility] Urine Culture SEE RESULT [address] [place] [address] [phone] Laboratory test 02/13/2019 [facility] Sodium Random 61 mmol/L [address] [place] [address] [phone] Basic Metabolic 02/13/2019 [facility] Potassium 4.5 mmol/L Normal 3.5-5.[address] [place] [address] [phone] Chloride 82 mmol/L Low 101-111 Co2 Carbon Dioxide 27 mmol/L Normal 22-32 Glucose 95 mg/dL Normal 70-100 Blood Urea Nitrogen 16 mg/dL Normal 6-24 Creatinine 0.76 mg/dL Normal 0.51-0.95 BUN/Creatinine Ratio 21.1 High 8-20 Calcium 9.1 mg/dL Normal 8.6-10.3 Egfr Non- 73.4 >60 Egfr 88.8 >60 10 Sodium 117 mmol/L Critical low 135-145 11 Anion Gap 8 mmol/L Normal 2-11 Laboratory 02/13/2019 [facility] Osmolality 262 Low 275-295 test finding [address] Serum mOsm/[place] [address] [phone] CBC Auto Diff 02/13/2019 [facility] White Blood 7.9 Normal 3.5 -10.[address] Count 10^3/[place] [address] [phone] Red Blood Count 3.89 10^6/uL Normal 3.70-4.87 [...] Blood Cells % 0.1 Basic Metabolic 02/13/2019 [facility] Potassium 4.0 mmol/L Normal 3.5-5.[address] [place] [address] [phone] Chloride 83 mmol/L Low 101-111 Co2 Carbon Dioxide 27 mmol/L Normal 22-32 Glucose 112 mg/dL High 70-100 Blood Urea Nitrogen 17 mg/dL Normal 6-24 Creatinine 0.80 mg/dL Normal 0.51-0.95 BUN/Creatinine Ratio 21.3 High 8-20 Calcium 9.6 mg/dL Normal 8.6-10.3 Egfr Non- 69.2 >60 Egfr 83.7 >60 12 Sodium 118 mmol/L Critical low 135-145 13 Anion Gap 8 mmol/L Normal 2-11 Urinalysis Profile 02/07/2019 [facility] Urine Color Yellow [address] [place] [address] [phone] Urine Appearance Cloudy Urine Specific [place] 1.017 Normal 1.010-1.030 Urine pH 6.0 Normal [...] Present Abnormal Absent Comp Metabolic Panel 02/07/2019 [facility] Sodium 122 mmol/L Low 135-145 [address] [employer] [place] [address] [phone] Potassium 4.4 mmol/L Normal 3.5-5.0 Chloride 88 [...] Egfr Non- 72.3 >60 Egfr 87.5 >60 14 Type & Screen 02/07/2019 [facility] Patient Blood Type A Positive [address] [place] [address] [phone] Antibody Screen NEGATIVE Urine Culture And 02/07/2019 [facility] Urine SEE RESULT [address] [place] [address] [phone] Laboratory test 01/28/2019 [facility] Partial 28.7 Normal 26.[address] Thrombo Time seconds -38. [place] [address] PTT 0 [phone] Inr/Protime 01/28/2019 [facility] Inr 0.94 Normal 0.[address] -1.0 [place] [address] 9 [phone] CBC Auto Diff 01/28/2019 [facility] White Blood 7.8 10^3/uL Normal 3.5- [address] Count 10.8 [place], [place] [address] [phone] Red Blood Count 3.61 10^6/uL Low 3.70-4.87 [...] % Nucleated Red Blood Cells % 0.0 Basic Metabolic 01/28/2019 [facility] Sodium 131 mmol/L Low 135-[address] [place], [place] [address] [phone] Potassium 4.7 mmol/L Normal 3.5-5.0 Chloride 95 mmol/L Low 101-111 Co2 Carbon Dioxide 27 mmol/L Normal 22-32 Anion Gap 9 mmol/L Normal 2-11 Glucose 92 mg/dL Normal 70-100 Blood Urea Nitrogen 22 mg/dL Normal 6-24 Creatinine 0.74 mg/dL Normal 0.51-0.95 BUN/Creatinine Ratio 29.7 High 8-20 Calcium 9.7 mg/dL Normal 8.6-10.3 Egfr Non- 75.7 >60 Egfr 91.6 >60 17 Laboratory test 01/28/2019 [facility] Hemoglobin A1c 5.8 % High 4.0-5.[address] (Glyco HGB) [place] [address] [phone] Lipid Profile 01/28/2019 [facility] Triglycerides 93 19 (Trig/Chol/HDL) [address] mg/[place] [address] [phone] Cholesterol 239 mg/dL 20 HDL Cholesterol 57.3 mg/dL 21 LDL Cholesterol 163 mg/dL 22 Laboratory 01/28/2019 [facility] TSH (Thyroid 1.18 Normal 0.34 -5.60 test finding [address] Stim Horm) mcIU/[place] [address] [phone] Order 01/27/2019 [facility] In-House EKG <pending> 1 Because ethnic data [...] 5 Kidney failure <15 (or dialysis) 2 Standard intensity warfarin therapeutic range: 2.0-3.0 High intensity warfarin therapeutic range: 2.5-3.5 3 SEE RESULT BELOW Name: DHARMESH GOMEZ : [address]: Lynn Toussaint MD Acct: [id number] Unit: [id number] AGE: 78 Location: PAT Re04/19/19 SEX: F Status: REG REF SPEC: [id number] [place]: 04/19/19-[address] [facility] [address]: Lynn Toussaint MD REQ: [id number] RECD: 04/19/19 STATUS: COMP _ SOURCE: URINE SPDESC: ORDERED: Urine Culture QUERIES: Urine Source: Clean Catch Procedure Result Reported Site Urine Culture Final 04/20/19- 1258 ML No growth of clinically significant organisms * ML - Main Lab . END OF REPORT DEPARTMENT OF PATHOLOGY, [address] [place] [address] Cong Willis M.D. Director [facility] # [id number] 4 Because ethnic data is not always [...] 5 Kidney failure <15 (or dialysis) 5 Because ethnic data is not always [...] 5 Kidney failure <15 (or dialysis) 6 Because ethnic data is not always [...] 5 Kidney failure <15 (or dialysis) 7 Because ethnic data is not always readily [...] 15-29 5 Kidney failure <15 (or dialysis) 8 SEE RESULT BELOW Name: DHARMESH GOMEZ : [address]: Zara Thomson MD Acct: [id number] Unit: [id number] AGE: 78 Location: [place] [address] Re02/14/19 SEX: F Status: ADM Gregg SPEC: [id number] [place]: 02/14/[address] [facility] [address]: Javier Adames MD REQ: [id number] RECD: 02/14/19 STATUS: [facility]LOR MONT[facility] DR: Abril Gayle MD _ SOURCE: URINE SPDESC: ORDERED: Urine Culture Procedure Result Reported Site Urine Culture Final 02/15/19- 0857 ML No Growth (<1,000 CFU/mL) * ML - Main Lab . END OF REPORT DEPARTMENT OF PATHOLOGY, [address] [place] [address] Cong Willis M.D. Director [facility] # [id number] 9 pt was notified and sent to ER 10 Because ethnic data is not always readily [...] 15-29 5 Kidney failure <15 (or dialysis) 11 Critical Result NA:[address] PARIKH at: 21:21:37 by:[id number] Read back by:DR PARIKH 12 Because ethnic data is not always [...] 5 Kidney failure <15 (or dialysis) 13 Critical Result NA:118 Called to [id number] at: 00:20:10 by:[id number] Read back by:[id number] 14 Because ethnic data is not always readily [...] 15-29 5 Kidney failure <15 (or dialysis) 15 SEE RESULT BELOW Name: DHARMESH GOMEZ : [address]: Lynn Toussaint MD Acct: [id number] Unit: [id number] AGE: 78 Location: [facility] Re02/07/19 SEX: F Status: REG REF SPEC: [id number] [place]: 02/07/[address]: Lynn Toussaint MD REQ: [id number] RECD: 02/07/19 STATUS: COMP _ SOURCE: URINE SPDESC: ORDERED: Urine Culture QUERIES: Urine Source: Clean Catch Procedure Result Reported Site Urine Culture Final 02/08/19- 1249 ML No Growth (<1,000 CFU/mL) * ML - Main Lab . END OF REPORT DEPARTMENT OF PATHOLOGY, [address] [place] [address] Cong Willis M.D. Director [facility] # [id number] 16 Standard intensity warfarin therapeutic range: 2.0-3.0 High intensity warfarin therapeutic range: 2.5-3.5 17 Because ethnic data is not always [...] 5 Kidney failure <15 (or dialysis) 18 Therapeutic target for the treatment of diabetes mellitus patients is <7% HBA1C, and in selective patients <6.0%. Please refer to [place] [employer] diabetic care guidelines for further information. 19 Desirable: <150 Borderline High: 150-199 High: 200-499 Very High: >500 20 Desirable: <200 Borderline High: 200-239 High: >239 21 Low: <40 Desirable: 40-60 High: >60 22 Desirable: <100 Near Optimal: 100-129 Borderline High: 130-159 High: 160-189 Very High: >189 Procedures Date Code Description Status 05/08/2019 83208 EKG, Interpretation Only Completed 05/05/2019 86352 TKR Total Knee Replacement Completed 05/05/2019 79001 TKR Total Knee Replacement Completed 04/19/2019 14378 Inj/Aspir Major JT Or Bursa W/ US Completed 04/10/2019 70368 EKG Tracing & Interpretation Completed 01/27/2019 52069 EKG Tracing & Interpretation Completed 12/26/2018 48705 Inj/Aspir Major JT Or Bursa W/ US Completed Medical Devices Description No Information Available Encounters Type Date Location Provider Dx Diagnosis Office Visit 05/09/2019 [facility] Brittany Dorado, I10 Essential ( primary) 10:00a Assoc,pc TAX MANAGER CPA hypertension Hospitalists E87.1 Hypo-osmolality and hyponatremia E03.9 Hypothyroidism, unspecified Office Visit 05/08/2019 9:59a [facility] Brittany Dorado, I10 Essential Assoc,pc TAX MANAGER CPA (primary) Hospitalists hypertension E87.1 Hypo-osmolality and hyponatremia E03.9 Hypothyroidism, unspecified Office Visit 05/07/2019 9:58a [facility] Brittany Dorado, I10 Essential Assoc,pc TAX MANAGER CPA (primary) Hospitalists hypertension E87.1 Hypo-osmolality and hyponatremia E03.9 Hypothyroidism, unspecified Office Visit 05/06/2019 9:58a [facility] Dayan I10 Essential Assoc,pc Felicita TAX MANAGER CPA (primary) Hospitalists hypertension E87.1 Hypo-osmolality and hyponatremia E03.9 Hypothyroidism, unspecified Office Visit 05/05/2019 [facility] E03.9 Hypothyroidism, 9:33a Assoc,candace Mims, TAX MANAGER CPA unspecified Hospitalists I10 Essential (primary) hypertension E87.1 Hypo-osmolality and hyponatremia Office Visit 03/01/2019 2:00p [facility] Internal Abril Gongora, E87.1 Hypo- osmolality and Medicine - MD hyponatremia Ccmob I10 Essential (primary) hypertension Office Visit 02/24/2019 1:40p [facility] Internal Abril Gongora, E87.1 Hypo- osmolality and Medicine - MD hyponatremia Ccmob I10 Essential (primary) hypertension Office 02/17/2019 [facility] E87.1 Hypo-osmolality and Visit 9:31a Assoc,candace Bella, [place] hyponatremia Hospitalists R82.71 Bacteriuria I10 Essential (primary) hypertension Office Visit 02/16/2019 9:30a [facility] R82.71 Bacteriuria Assoc,candace Bella, [place] Hospitalists E87.1 Hypo-osmolality and hyponatremia I10 Essential (primary) hypertension Office Visit 02/15/2019 9:30a [facility] R82.71 Bacteriuria Assoc,candace Bella, MARY JO Hospitalists E87.1 Hypo-osmolality and hyponatremia I10 Essential (primary) hypertension Office Visit 02/14/2019 [facility] E87.1 Hypo-osmolality and 9:29a Asscandace espinoza M.D. hyponatremia Hospitalists I10 Essential (primary) hypertension R82.71 Bacteriuria Office Visit 02/13/2019 3:00p [facility] Internal Abrilgurmeet Gongora, E87.1 Hypo- osmolality and Medicine - MD hyponatremia Ccmob I10 Essential (primary) hypertension Office Visit 01/27/2019 10:00a [facility] Internal Abrilgurmeet Gongora, Z01.818 Encounter for other Medicine - MD preprocedural Ccmob examination M17.12 Unilateral primary osteoarthritis, left knee I10 Essential (primary) hypertension Office Visit 01/10/2019 10:20a [facility] Internal Christianne Bustamante, I10 Essential (primary) Medicine - Suite DO hypertension R E03.9 Hypothyroidism, unspecified E87.5 Hyperkalemia Office Visit 01/04/2019 9:30a [facility] Lynn Norbert, M25.551 Pain in right at [place] M.D. hip M16.11 Unilateral primary osteoarthritis, right hip W19.xxxD Unspecified fall, subsequent encounter Office Visit 12/26/2018 8:45a [facility] Lynn Toussaint, M25.551 Pain in right at [place] M.D. hip M16.11 Unilateral primary osteoarthritis, right hip Z96.651 Presence of right artificial knee joint W19.xxxA Unspecified fall, initial encounter Assessments Date Code Description Provider 06/14/2019 Z47.1 Aftercare following joint replacement Lynn Toussaint M.D. surgery 06/14/2019 Z96.652 Presence of left artificial knee Lynn Toussaint M.D. joint 06/14/2019 M25.562 Pain in left knee Lynn Toussaint M.D. 05/17/2019 Z47.1 Aftercare following joint replacement Lynn Toussaint M.D. surgery 05/17/2019 M25.562 Pain in left knee Lynn Toussaint M.D. 05/17/2019 Z96.652 Presence of left artificial knee Lynn Toussaint M.D. joint 05/09/2019 I10 Essential (primary) hypertension Brittany Dorado, ANGELA 05/09/2019 E87.1 Hypo-osmolality and hyponatremia Brittany Dorado, ANGELA 05/09/2019 E03.9 Hypothyroidism, unspecified Brittany Dorado, ANGELA 05/08/2019 R94.31 Abnormal electrocardiogram [ECG] Kayla Guillermo MD, FACC, [EKG] FSCAI 05/08/2019 I10 Essential (primary) hypertension Brittany Dorado, ANGELA 05/08/2019 E87.1 Hypo-osmolality and hyponatremia Brittany Dorado NP 05/08/2019 E03.9 Hypothyroidism, unspecified Brittany Dorado, ANGELA 05/07/2019 I10 Essential (primary) hypertension Brittany Dorado, ANGELA 05/07/2019 E87.1 Hypo-osmolality and hyponatremia Brittany Dorado NP 05/07/2019 E03.9 Hypothyroidism, unspecified Brittany Dorado, ANGELA 05/06/2019 I10 Essential (primary) hypertension Dayan Mims, TAX MANAGER CPA 05/06/2019 E87.1 Hypo-osmolality and hyponatremia Dayan Mims, TAX MANAGER CPA 05/06/2019 E03.9 Hypothyroidism, unspecified Dayan Mims, TAX MANAGER CPA 05/05/2019 E03.9 Hypothyroidism, unspecified Dayan Mims, TAX MANAGER CPA 05/05/2019 M17.12 Unilateral primary osteoarthritis, MARY JO Carcamo left knee 05/05/2019 I10 Essential (primary) hypertension Dayan Alejandrasneha, ANGELA 05/05/2019 M17.12 Unilateral primary osteoarthritis, Lynn Toussaint M.D. left knee 05/05/2019 E87.1 Hypo-osmolality and hyponatremia Dayan Robertssneha, TAX MANAGER CPA 04/19/2019 M17.12 Unilateral primary osteoarthritis, Lynn Toussaint M.D. left knee 04/19/2019 M25.562 Pain in left knee Lynn Toussaint M.D. 04/19/2019 M25.551 Pain in right hip Lynn Toussaint M.D. 04/19/2019 M16.11 Unilateral primary osteoarthritis, Lynn Toussaint M.D. right hip 04/17/2019 I10 Essential (primary) hypertension Nurse Visit A 04/10/2019 Z01.818 Encounter for other preprocedural Jeanine Wells M.D. examination 04/10/2019 M17.12 Unilateral primary osteoarthritis, Jeanine Wells M.D. left knee 04/10/2019 I10 Essential (primary) hypertension Jeanine [...] Gongora MD 02/17/2019 E87.1 Hypo-osmolality and hyponatremia Shadiahao Bella, PA 02/17/2019 R82.71 Bacteriuria Shadia Bella, PA 02/17/2019 I10 Essential (primary) hypertension Shadia Bella, PA 02/16/2019 R82.71 Bacteriuria Shadia Bella, PA 02/16/2019 E87.1 Hypo-osmolality and hyponatremia Shadia Bella PA 02/16/2019 I10 Essential (primary) hypertension Shadia Bella, PA 02/15/2019 R82.71 Bacteriuria Shadia Bella, PA 02/15/2019 E87.1 Hypo-osmolality and hyponatremia Shadiahao Bella PA 02/15/2019 I10 Essential (primary) hypertension Shadiahao Fernandesvarun PA 02/14/2019 E87.1 Hypo-osmolality and hyponatremia Georgina Farrar M.D. 02/14/2019 I10 Essential (primary) hypertension Georgina Farrar M.D. 02/14/2019 R82.71 Bacteriuria Georgina Farrar M.D. 02/13/2019 E87.1 Hypo-osmolality and hyponatremia Abril Gongora MD 02/13/2019 I10 Essential (primary) hypertension Abril Gongora MD 02/03/2019 M25.562 Pain in left knee Lynn Toussiant M.D. 01/27/2019 I10 Essential (primary) hypertension Zara Camp MD 01/27/2019 Z01.818 Encounter for other preprocedural Abril Gongora MD examination 01/27/2019 M17.12 Unilateral primary osteoarthritis, Abril Gongora MD left knee 01/27/2019 I10 Essential (primary) hypertension Abril Gongora MD 01/10/2019 I10 Essential (primary) hypertension Christianne Bustamante, DO 01/10/2019 E03.9 Hypothyroidism, unspecified Christianne Bustamante, DO 01/10/2019 E87.5 Hyperkalemia Christianne Bustamante, DO 01/04/2019 M25.551 Pain in right hip Lynn Toussaint M.D. 01/04/2019 M16.11 Unilateral primary osteoarthritis, Lynn Toussaint M.D. right hip 01/04/2019 W19.xxxD Unspecified fall, subsequent Lynn Toussaint M.D. encounter 12/26/2018 M25.551 Pain in right hip Lynn Toussaint M.D. 12/26/2018 M16.11 Unilateral primary osteoarthritis, Lynn Toussaint M.D. right hip 12/26/2018 Z96.651 Presence of right artificial knee Lynn Toussaint M.D. joint 12/26/2018 W19.xxxA Unspecified fall, initial encounter Lynn Toussaint M.D. Plan of Treatment Future Appointment(s):07/26/2019 10:00 am - Lynn Toussaint M.D. at [facility] at [id number]/27/2019 10:00 am - Mindy Ramirez MD at [facility]06/14/2019 - Lynn Toussaint M.D.Z47.1 Aftercare following joint replacement surgeryFollow up:Follow up: 5-6 aygxdN83.652 Presence of left artificial knee szfodA38.562 Pain in left knee Functional Status Description No Information Available Mental Status Description No Information Available Referrals Description No Information Available
--- OUTSIDE RECORDS SUMMARY | 2019-07-24 08:17 | XMS REPORT ---
:1939 Author Organization [facility] Care Team Providers Name Role Phone Unavailable Unavailable Unavailable Problems Condition Condition Condition Status Onset Resolution Last Treating Comments Name Details Category Date Date Treatment Clinician Date Aftercare Aftercare Diagnosis Active 2018-05 Lizandro following following 07-06 Misael joint joint [id number] replacement replacement surgery surgery Essential Essential Diagnosis Active Lizandro (primary) (primary) 05-31 Misael hypertensio hypertensio [id number] n n Hypo-osmola Hypo-osmola Diagnosis Active Lizandro lity and lity and 05-31 Misael hyponatremi hyponatremi [id number] a a Hypothyroid Hypothyroid Diagnosis Active Lizandro ism, ism, 05-31 Misael unspecified unspecified [id number] Presence of Presence of Diagnosis Active 2018-05 Lizandro artificial artificial 07-06 Misael knee joint, knee joint, [id number] bilateral bilateral [facility] Diagnosis Active 2018-05 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) (current) 07-13 Misael use of use of [id number] anticoagula anticoagula nts nts [facility] Diagnosis Active 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) (current) Misael use of use of [id number] opiate opiate analgesic analgesic Pain frequent Pain Mgmt Active 2018-05 Elissa pain 07-13 [place] 09:15: [id number] 00 Respiratory dyspnea Respirator Active 2018-05 Elissa present y 07-13 [place] 09:15: [id number] 00 Endo/Luis A anti-coagul Endo/Luis A Resolve 2018-052019-05-16 Elissa ation d 07-13 15:30:00 [place] therapy 09:15: [id number] 00 Sensory impaired Sensory Active 2018-05 Elissa hearing 07-13 [place] 09:15: [id number] 00 Integument surgical Integument Active 2018-05 Elissa wound 07-13 [place] present 09:15: [id number] 00 Nutrition nutritional Nutrition Resolve 2018-052019-05-16 Elissa restriction d 2- 15:30:00 [place] s 09:15: [id number] 00 Neuro confusion Neuro/Emot Active 2018-05 Elissa present ion 07-13 [place] 09:15: [id number] 00 Activity ADL Activity Active 2018-05 Elissa assistance - [place] required 09:15: [id number] 00 Activity self-care Activity Active 2018-05 Elissa deficit 07-13 [place] 09:15: [id number] 00 Safety structural Safety Active 2018-05 Elissa barriers 07-13 [place] present 09:15: [id number] 00 Safety fall risk Safety Active 2018-05 Elissa factor 07-13 [place] present 09:15: [id number] 00 Safety risk for Safety Active 2018-05 Elissa hospitaliza 07-13 [place] tion 09:15: [id number] 00 Medication oral med Meds Resolve 2018-052019-05-16 Elissa assistance d 07-13 15:30:00 [place] required 09:15: [id number] 00 Musculoskel transfer Musculoske Unknown 2018-05 Elissa etal assistance letal 07-13 [place] required 09:15: [id number] 00 Musculoskel requires Musculoske Resolve 2018-052019-05-22 Elissa etal human letal d 07-13 10:00:00 [place] assist to 09:15: [id number] leave home 00 Safety can be left Safety Active 2018-05 Lizandro alone for 07-13 Misael only short 13:05: [id number] periods 00 Strength/To knowledge/s PT: Active 2018-05 Lizandro ne/Motor kill Strength 07-13 Misael Control deficit LE: 13:05: [id number] pt 00 Bed mobility/tr PT/OT: Bed Active 2018-05 Lizandro Mobility/Tr ansfer Mobility/T 07-13 Misael garciafer device ransfer 13:05: [id number] present 00 Bed transfer PT/OT: Bed Active 2018-05 Lizandro Mobility/Tr deficit: Mobility/T 07-13 Misael garciafer shower/tub ransfer 13:05: [id number] 00 Bed transfer PT/OT: Bed Active 2018-05 Lizandro Mobility/Tr deficit: Mobility/T 2-13 [place] ansfer vehicle ransfer 13:05: [id number] 00 Bed knowledge/s PT/OT: Bed Active 2018-05 Lizandro Mobility/Tr kill Mobility/T 2-13 [place] ansfer deficit: pt ransfer 13:05: [id number] 00 Bed bed PT/OT: Bed Active 2018-05 Lizandro Mobility/Tr mobility Mobility/T 2-13 [place] ansfer deficit ransfer 13:05: [id number] 00 Balance/End balance/regional office coordinator PT/OT: Active 2018-05 Lizandro urance rdination Balance/En 2-13 [place] deficit durance 13:05: [id number] 00 OT: Self self-care OT: Active 2018-05 Lizandro Care deficit Self-Care 2-13 [place] 13:05: [id number] 00 OT: Self knowledge/s OT: Active 2018-05 Lizandro Care kill Self-Care 2-13 [place] deficit: pt 13:05: [id number] 00 Gait/Locomo stair PT/OT: Active 2018-05 Lizandro tion management Gait/Locom 2-13 [place] problems req otion 13:05: [id number] 00 Gait/Locomo gait PT/OT: Active 2018-05 Lizandro tion assistive Gait/Locom 2-13 [place] problems device otion 13:05: [id number] present 00 Gait/Locomo knowledge/s PT/OT: Active 2018-05 Lizandro tion kill Gait/Locom 2-13 [place] problems deficit: pt otion 13:05: [id number] 00 Gait/Locomo gait PT/OT: Active 2018-05 Liznadro tion deficit Gait/Locom 2-13 [place] problems otion 13:05: [id number] 00 Activity knowledge/s Activity Resolve 2018-052019-05-22 ashley Carcamo d 2-16 10:00:00 [place] deficit: pt 10:26: [id number] 00 Safety knowledge/s Safety Active 2018-05 White, kill 2-16 [place] deficit: pt 10:26: [id number] 00 Safety knowledge/s Safety Active 2018-05 White, kill 2-16 [place] deficit: cg 10:26: [id number] 00 Musculoskel transfer Musculoske Active 2018-05 arvind Carcamo 2-23 [place] required 10:00: [id number] 00 Musculoskel knowledge/s Musculoske Active 2018-05 Carlos Alberto, etal kill letal 07-23 [place] deficit: pt 10:00: [id number] 00 Allergies, Adverse Reactions, Alerts Allergy Allergy [...] capsule mg capsule levothyroxi levothyroxi 2018-05 Yes Nobrert Unknown Unknown ne 125 mcg ne 125 [...]
--- OUTSIDE RECORDS SUMMARY | 2019-07-24 08:17 | XMS REPORT ---
:1939 Author Organization [facility] Care Team Providers Name Role Phone Unavailable Unavailable Unavailable Problems Condition Condition Condition Status Onset Resolution Last Treating Comments Name Details Category Date Date Treatment Clinician Date Aftercare Aftercare Diagnosis Active 2018-05 Lizandro following following 07-06 Misael joint joint [id number] replacement replacement surgery surgery Essential Essential Diagnosis Active Lizandro (primary) (primary) 05-31 Misael hypertensio hypertensio [id number] n n Hypo-osmola Hypo-osmola Diagnosis Active Lizandro lity and lity and 05-31 Misael hyponatremi hyponatremi [id number] a a Hypothyroid Hypothyroid Diagnosis Active Lizandro ism, ism, 05-31 Misael unspecified unspecified [id number] Presence of Presence of Diagnosis Active 2018-05 Lizandro artificial artificial - Misael knee joint, knee joint, [id number] bilateral bilateral 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-05 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) (current) 2 Misael use of use of [id number] anticoagula anticoagula nts nts [facility] 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) (current) Misael use of use of [id number] opiate opiate analgesic analgesic Pain frequent Pain Mgmt Resolve 2018-052019-06-02 Elissa pain d 2-13 12:18:00 [place] 09:15: [id number] 00 Respiratory dyspnea Respirator Resolve 2018-052019-06-02 Elissa present y d 2-13 12:18:00 [place] 09:15: [id number] 00 Endo/Luis A anti-coagul Endo/Luis A Resolve 2018-052019-05-16 Elissa ation d 2-13 15:30:00 [place] therapy 09:15: [id number] 00 Sensory impaired Sensory Resolve 2018-052019-06-02 Elissa hearing d 2-13 12:18:00 [place] 09:15: [id number] 00 Integument surgical Integument Resolve 2018-052019-06-02 Elissa wound d 2-13 12:18:00 [place] present 09:15: [id number] 00 Nutrition nutritional Nutrition Resolve 2018-052019-05-16 Elissa restriction d 2-13 15:30:00 [place] s 09:15: [id number] 00 Neuro confusion Neuro/Emot Resolve 2018-052019-06-02 Elissa present ion d 2-13 12:18:00 [place] 09:15: [id number] 00 Activity ADL Activity Resolve 2018-052019-06-02 Elissa assistance d 2-13 12:18:00 [place] required 09:15: [id number] 00 Activity self-care Activity Resolve 2018-052019-06-02 Elissa deficit d 2-13 12:18:00 [place] 09:15: [id number] 00 Safety structural Safety Resolve 2018-052019-06-02 Elissa barriers d 2-13 12:18:00 [place] present 09:15: [id number] 00 Safety fall risk Safety Resolve 2018-052019-06-02 Elissa factor d 2-13 12:18:00 [place] present 09:15: [id number] 00 Safety risk for Safety Resolve 2018-052019-06-02 Elissa hospitaliza d 2-13 12:18:00 [place] tion 09:15: [id number] 00 Medication oral med Meds Resolve 2018-052019-05-16 Elissa assistance d 2-13 15:30:00 [place] required 09:15: [id number] 00 Musculoskel transfer Musculoske Unknown 2018-05 Elissa etal assistance letal 2-13 [place] required 09:15: [id number] 00 Musculoskel requires Musculoske Active 2018-05 Elissa etal human letal 2-13 [place] assist to 09:15: [id number] leave home 00 Safety can be left Safety Resolve 2018-052019-06-02 Lizandro alone for d 2-13 12:18:00 Misael nino short 13:05: [id number] periods 00 Strength/To knowledge/s PT: Resolve 2018-052019-06-02 Lizandro ne/Motor kill Strength d 2-13 12:18:00 Misael Control deficit LE: 13:05: [id number] pt 00 Bed mobility/tr PT/OT: Bed Resolve 2018-052019-06-02 Lizandro Mobility/Tr ansfer Mobility/T d 2-13 12:18:00 Misael bates device ransfer 13:05: [id number] present 00 Bed transfer PT/OT: Bed Resolve 2018-052019-06-02 Lizandro Mobility/Tr deficit: Mobility/T d 2-13 12:18:00 Misael bates shower/tub ransfer 13:05: [id number] 00 Bed transfer PT/OT: Bed Resolve 2018-052019-06-02 Lizandro Mobility/Tr deficit: Mobility/T d 2-13 12:18:00 Misael bates vehicle ransfer 13:05: [id number] 00 Bed knowledge/s PT/OT: Bed Resolve 2018-052019-06-02 Lizandro Mobility/Tr kill Mobility/T d 2-13 12:18:00 Misael bates deficit: pt ransfer 13:05: [id number] 00 Bed bed PT/OT: Bed Resolve 2018-052019-06-02 Lizandro Mobility/Tr mobility Mobility/T d 2-13 12:18:00 Misael bates deficit ransfer 13:05: [id number] 00 Balance/End balance/information coordinator PT/OT: Resolve 2018-052019-06-02 Lizandro urance rdination Balance/En d 2-13 12:18:00 Misael deficit durance 13:05: [id number] 00 OT: Self self-care OT: Resolve 2018-052019-06-02 Lizandro Care deficit Self-Care d 2-13 12:18:00 [place] 13:05: [id number] 00 OT: Self knowledge/s OT: Resolve 2018-052019-06-02 Lizandro Care kill Self-Care d 2-13 12:18:00 Misael deficit: pt 13:05: [id number] 00 Gait/Locomo stair PT/OT: Resolve 2018-052019-06-02 Lizandro tion management Gait/Locom d 2-13 12:18:00 Misael problems req otion 13:05: [id number] 00 Gait/Locomo gait PT/OT: Resolve 2018-052019-06-02 Lizandro tion assistive Gait/Locom d 2-13 12:18:00 [place] problems device otion 13:05: [id number] present 00 Gait/Locomo knowledge/s PT/OT: Resolve 2018-052019-06-02 Lizandro rod kill Gait/Locom d 2-13 12:18:00 [place] problems deficit: pt otion 13:05: [id number] 00 Gait/Locomo gait PT/OT: Resolve 2018-052019-06-02 Lizandro tion deficit Gait/Locom d 2-13 12:18:00 [place] problems otion 13:05: [id number] 00 Activity knowledge/s Activity Resolve 2018-052019-05-22 ashley Carcamo d 2-16 10:00:00 [place] deficit: pt 10:26: [id number] 00 Safety knowledge/s Safety Resolve 2018-052019-06-02 ashley Carcamo d 2-16 12:18:00 [place] deficit: pt 10:26: [id number] 00 Safety knowledge/s Safety Resolve 2018-052019-06-02 ashley Carcamo d 2-16 12:18:00 [place] deficit: cg 10:26: [id number] 00 Musculoskel transfer Musculoske Resolve 2018-052019-06-02 demario Carcamol assistance letal d 2-23 12:18:00 [place] required 10:00: [id number] 00 Musculoskel knowledge/s Musculoske Resolve 2018-052019-06-02 demario Carcamol kill letal d 2-23 12:18:00 [place] deficit: pt 10:00: [id number] 00 Allergies, Adverse Reactions, Alerts Allergy Allergy [...] RESP RATE 2019-06-02 18:09:41 16 /min /min [facility] 2019-06-02 18:09:41 97.8 [degF] Procedures This patient has no known procedures. Results This patient has no known results.
--- OUTSIDE RECORDS SUMMARY | 2019-07-24 08:17 | XMS REPORT ---
:1939 Author Organization [facility] Care Team Providers Name Role Phone Unavailable Unavailable Unavailable Problems Condition Condition Condition Status Onset Resolution Last Treating Comments Name Details Category Date Date Treatment Clinician Date Aftercare Aftercare Diagnosis Active 2018-05 Lizandro following following 07-06 Misael joint joint [id number] replacement replacement surgery surgery Essential Essential Diagnosis Active Lizandro (primary) (primary) 05-31 Misael hypertensio hypertensio [id number] n n Hypo-osmola Hypo-osmola Diagnosis Active Lizandro lity and lity and 05-31 Misael hyponatremi hyponatremi [id number] a a Hypothyroid Hypothyroid Diagnosis Active Lizandro ism, ism, 05-31 Misael unspecified unspecified [id number] Presence of Presence of Diagnosis Active 2018-05 Lizandro artificial artificial 07-06 Misael knee joint, knee joint, [id number] bilateral bilateral 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-05 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) (current) 07-13 Misael use of use of [id number] anticoagula anticoagula nts nts 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 home 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) (current) Misael use of use of [id number] opiate opiate analgesic analgesic Pain frequent Pain Mgmt Active 2018-05 Elissa pain 07-13 [place] 09:15: [id number] 00 Respiratory dyspnea Respirator Active 2018-05 Elissa present y 07-13 [place] 09:15: [id number] 00 Endo/Luis A anti-coagul Endo/Luis A Resolve 2018-052019-05-16 Elissa ation d 07-13 15:30:00 [place] therapy 09:15: [id number] 00 Sensory impaired Sensory Active 2018-05 Elissa hearing 07-13 [place] 09:15: [id number] 00 Integument surgical Integument Active 2018-05 Elissa wound 07-13 [place] present 09:15: [id number] 00 Nutrition nutritional Nutrition Resolve 2018-052019-05-16 Elissa restriction d 2- 15:30:00 [place] s 09:15: [id number] 00 Neuro confusion Neuro/Emot Active 2018-05 Elissa present ion 07-13 [place] 09:15: [id number] 00 Activity ADL Activity Active 2018-05 Elissa assistance - [place] required 09:15: [id number] 00 Activity self-care Activity Active 2018-05 Elissa deficit 07-13 [place] 09:15: [id number] 00 Safety structural Safety Active 2018-05 Elissa barriers 07-13 [place] present 09:15: [id number] 00 Safety fall risk Safety Active 2018-05 Elissa factor 07-13 [place] present 09:15: [id number] 00 Safety risk for Safety Active 2018-05 Elissa hospitaliza 07-13 [place] tion 09:15: [id number] 00 Medication oral med Meds Resolve 2018-052019-05-16 Elissa assistance d 07-13 15:30:00 [place] required 09:15: [id number] 00 Musculoskel transfer Musculoske Unknown 2018-05 Elissa etal assistance letal 07-13 [place] required 09:15: [id number] 00 Musculoskel requires Musculoske Resolve 2018-052019-05-22 Elissa etal human letal d 07-13 10:00:00 [place] assist to 09:15: [id number] leave home 00 Safety can be left Safety Active 2018-05 Lizandro alone for 07-13 Misael only short 13:05: [id number] periods 00 Strength/To knowledge/s PT: Active 2018-05 Lizandro ne/Motor kill Strength 07-13 Misael Control deficit LE: 13:05: [id number] pt 00 Bed mobility/tr PT/OT: Bed Active 2018-05 Lizandro Mobility/Tr ansfer Mobility/T 07-13 Misael garciafer device ransfer 13:05: [id number] present 00 Bed transfer PT/OT: Bed Active 2018-05 Lizandro Mobility/Tr deficit: Mobility/T 07-13 Misael garciafer shower/tub ransfer 13:05: [id number] 00 Bed transfer PT/OT: Bed Active 2018-05 Lizandro Mobility/Tr deficit: Mobility/T 2-13 [place] ansfer vehicle ransfer 13:05: [id number] 00 Bed knowledge/s PT/OT: Bed Active 2018-05 Lizandro Mobility/Tr kill Mobility/T 2-13 [place] ansfer deficit: pt ransfer 13:05: [id number] 00 Bed bed PT/OT: Bed Active 2018-05 Lizandro Mobility/Tr mobility Mobility/T 2-13 [place] ansfer deficit ransfer 13:05: [id number] 00 Balance/End balance/international exchange coordinator PT/OT: Active 2018-05 Lizandro urance rdination Balance/En 2-13 [place] deficit durance 13:05: [id number] 00 OT: Self self-care OT: Active 2018-05 Lizandro Care deficit Self-Care 2-13 [place] 13:05: [id number] 00 OT: Self knowledge/s OT: Active 2018-05 Lizandro Care kill Self-Care 2-13 [place] deficit: pt 13:05: [id number] 00 Gait/Locomo stair PT/OT: Active 2018-05 Lizandro tion management Gait/Locom 2-13 [place] problems req otion 13:05: [id number] 00 Gait/Locomo gait PT/OT: Active 2018-05 Lizandro tion assistive Gait/Locom 2-13 [place] problems device otion 13:05: [id number] present 00 Gait/Locomo knowledge/s PT/OT: Active 2018-05 Lizandro tion kill Gait/Locom 2-13 [place] problems deficit: pt otion 13:05: [id number] 00 Gait/Locomo gait PT/OT: Active 2018-05 Lizandro tion deficit Gait/Locom 2-13 [place] problems otion 13:05: [id number] 00 Activity knowledge/s Activity Resolve 2018-052019-05-22 ashley Carcamo d 2-16 10:00:00 [place] deficit: pt 10:26: [id number] 00 Safety knowledge/s Safety Active 2018-05 White, kill 2-16 [place] deficit: pt 10:26: [id number] 00 Safety knowledge/s Safety Active 2018-05 White, kill 2-16 [place] deficit: cg 10:26: [id number] 00 Musculoskel transfer Musculoske Active 2018-05 arvind Carcamo 2-23 [place] required 10:00: [id number] 00 Musculoskel knowledge/s Musculoske Active 2018-05 Carlos Alberto, etal kill letal 07-23 [place] deficit: pt 10:00: [id number] 00 Allergies, Adverse Reactions, Alerts Allergy Allergy [...]
--- OUTSIDE RECORDS SUMMARY | 2019-07-24 08:17 | XMS REPORT ---
:1940 Author Organization [facility] Care Team Providers Name Role Phone Unavailable Unavailable Unavailable Problems Condition Condition Condition Status Onset Resolution Last Treating Comments Name Details Category Date Date Treatment Clinician Date Aftercare Aftercare Diagnosis Active 2018-05 Lizandro following following 07-06 Misael joint joint [id number] replacement replacement surgery surgery Essential Essential Diagnosis Active Lizandro (primary) (primary) 05-31 Misael hypertensio hypertensio [id number] n n Hypo-osmola Hypo-osmola Diagnosis Active Lizandro lity and lity and 05-31 Misael hyponatremi hyponatremi [id number] a a Hypothyroid Hypothyroid Diagnosis Active Lizandro ism, ism, 05-31 Misael unspecified unspecified [id number] Presence of Presence of Diagnosis Active 2018-05 Lizandro artificial artificial - Misael knee joint, knee joint, [id number] bilateral bilateral 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) (current) 2 Misael use of use of [id number] anticoagula anticoagula nts nts 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) (current) Misael use of use of [id number] opiate opiate analgesic analgesic Pain frequent Pain Mgmt Resolve 2018-052019-06-02 Elissa pain d 2-13 12:18:00 [place] 09:15: [id number] Respiratory dyspnea Respirator Resolve 2018-052019-06-02 Elissa present y d 2-13 12:18:00 [place] 09:15: [id number] 00 Endo/Luis A anti-coagul Endo/Luis A Resolve 2018-052019-05-16 Elissa ation d 2-13 15:30:00 [place] therapy 09:15: [id number] 00 Sensory impaired Sensory Resolve 2018-052019-06-02 Elissa hearing d 2-13 12:18:00 [place] 09:15: [id number] 00 Integument surgical Integument Resolve 2018-052019-06-02 Elissa wound d 2-13 12:18:00 [place] present 09:15: [id number] 00 Nutrition nutritional Nutrition Resolve 2018-052019-05-16 Elissa restriction d 2-13 15:30:00 [place] s 09:15: [id number] 00 Neuro confusion Neuro/Emot Resolve 2018-052019-06-02 Elissa present ion d 2-13 12:18:00 [place] 09:15: [id number] 00 Activity ADL Activity Resolve 2018-052019-06-02 Elissa assistance d 2-13 12:18:00 [place] required 09:15: [id number] Activity self-care Activity Resolve 2018-052019-06-02 Elissa deficit d 2-13 12:18:00 [place] 09:15: [id number] 00 Safety structural Safety Resolve 2018-052019-06-02 Elissa barriers d 2-13 12:18:00 [place] present 09:15: [id number] 00 Safety fall risk Safety Resolve 2018-052019-06-02 Elissa factor d 2-13 12:18:00 [place] present 09:15: [id number] 00 Safety risk for Safety Resolve 2018-052019-06-02 Elissa hospitaliza d 2-13 12:18:00 [place] tion 09:15: [id number] 00 Medication oral med Meds Resolve 2018-052019-05-16 Elissa assistance d 2-13 15:30:00 [place] required 09:15: [id number] 00 Musculoskel transfer Musculoske Unknown 2018-05 Elissa etal assistance letal 2-13 [place] required 09:15: [id number] 00 Musculoskel requires Musculoske Active 2018-05 Elissa etal human letal 2-13 [place] assist to 09:15: [id number] leave home 00 Safety can be left Safety Resolve 2018-052019-06-02 Lizandro alone for d 2-13 12:18:00 Misael nino short 13:05: [id number] periods 00 Strength/To knowledge/s PT: Resolve 2018-052019-06-02 Lizandro ne/Motor kill Strength d 2-13 12:18:00 Misael Control deficit LE: 13:05: [id number] pt 00 Bed mobility/tr PT/OT: Bed Resolve 2018-052019-06-02 Lizandro Mobility/Tr ansfer Mobility/T d 2-13 12:18:00 Misael bates device ransfer 13:05: [id number] present 00 Bed transfer PT/OT: Bed Resolve 2018-052019-06-02 Lizandro Mobility/Tr deficit: Mobility/T d 2-13 12:18:00 Misael bates shower/tub ransfer 13:05: [id number] 00 Bed transfer PT/OT: Bed Resolve 2018-052019-06-02 Lizandro Mobility/Tr deficit: Mobility/T d 2-13 12:18:00 Misael bates vehicle ransfer 13:05: [id number] 00 Bed knowledge/s PT/OT: Bed Resolve 2018-052019-06-02 Lizandro Mobility/Tr kill Mobility/T d 2-13 12:18:00 Misael bates deficit: pt ransfer 13:05: [id number] 00 Bed bed PT/OT: Bed Resolve 2018-052019-06-02 Lizandro Mobility/Tr mobility Mobility/T d 2-13 12:18:00 Misael bates deficit ransfer 13:05: [id number] 00 Balance/End balance/cook italian style food PT/OT: Resolve 2018-052019-06-02 Lizandro urance rdination Balance/En d 2-13 12:18:00 Misael deficit durance 13:05: [id number] 00 OT: Self self-care OT: Resolve 2018-052019-06-02 Lizandro Care deficit Self-Care d 2-13 12:18:00 Misael 13:05: [id number] 00 OT: Self knowledge/s OT: Resolve 2018-052019-06-02 Lizandro Care kill Self-Care d 2-13 12:18:00 Misael deficit: pt 13:05: [id number] 00 Gait/Locomo stair PT/OT: Resolve 2018-052019-06-02 Lizandro tion management Gait/Locom d 2-13 12:18:00 Misael problems req otion 13:05: [id number] 00 Gait/Locomo gait PT/OT: Resolve 2018-052019-06-02 Lizandro tion assistive Gait/Locom d 2-13 12:18:00 [place] problems device otion 13:05: [id number] present 00 Gait/Locomo knowledge/s PT/OT: Resolve 2018-052019-06-02 Lizandro rod kill Gait/Locom d 2-13 12:18:00 [place] problems deficit: pt otion 13:05: [id number] 00 Gait/Locomo gait PT/OT: Resolve 2018-052019-06-02 Lizandro tion deficit Gait/Locom d 2-13 12:18:00 [place] problems otion 13:05: [id number] 00 Activity knowledge/s Activity Resolve 2018-052019-05-22 ashley Carcamo d 2-16 10:00:00 [place] deficit: pt 10:26: [id number] Safety knowledge/s Safety Resolve 2018-052019-06-02 ashley Carcamo d 2-16 12:18:00 [place] deficit: pt 10:26: [id number] Safety knowledge/s Safety Resolve 2018-052019-06-02 ashley Carcamo d 2-16 12:18:00 [place] deficit: cg 10:26: [id number] Musculoskel transfer Musculoske Resolve 2018-052019-06-02 demario Carcamol assistance letal d 2-23 12:18:00 [place] required 10:00: [id number] Musculoskel knowledge/s Musculoske Resolve 2018-052019-06-02 demario Carcamol kill letal d 2-23 12:18:00 [place] deficit: pt 10:00: [id number] 00 Allergies, Adverse Reactions, Alerts Allergy Allergy [...] RESP RATE 2019-06-02 18:09:41 16 /min /min [facility] 2019-06-02 18:09:41 97.8 [degF] Procedures This patient has no known procedures. Results This patient has no known results.
[2019-07-24 08:50] LABS: TSH (Thyroid Stimulating Horm) 1.4 mcIU/mL (0.34-5.60)
[2019-07-24 08:52] LABS: Free T4 1.35 ng/dL (0.61-1.12)
[2019-07-24] MEDS ORDERED: Iohexol 350* (CONTRAST) 500 ML MDV IV ONE (09:09)
[2019-07-24] MEDS ORDERED: NS 0.9% 1000 ML** 1,000 ML IV SCH (09:45)
[2019-07-24] MEDS ORDERED: Diltiazem TAB* 30 MG PO ONE (09:54)
[2019-07-24] MEDS ORDERED: Furosemide IV* 10 MG/ML 2 ML VIAL (20 MG) IV SLOW PU ONE ×2 (11:57→20:20)
[2019-07-24 12:26] LABS: Urine Appearance Cloudy; Urine Bilirubin Negative (Negative); Urine Blood Negative (Negative); Urine Color Straw; Urine Glucose Negative (Negative); Urine Ketones Negative (Negative); Urine Nitrite Negative (Negative); Urine Protein Negative (Negative); Urine Specific Gravity 1.019 (1.010-1.030); Urine Urobilinogen Negative (Negative)
[2019-07-24 12:38] LABS: Urine Bacteria Absent (Absent); Urine Red Blood Cell Trace(0-2/hpf) (Absent); Urine Squamous Epithelial Cell Present (Absent); Urine White Blood Cell 2+(11-20/hpf) (Absent)
[2019-07-24] MEDS: Metoprolol Tartrate TAB* 25 MG PO SCH ×2 (14:23→22:39)
--- NOTE | 2019-07-24 15:06 | HP ---
ADMISSION HISTORY AND PHYSICAL: DATE OF ADMISSION: 07/24/19 PRIMARY CARE PROVIDER: Dr. Wells. ADMITTING PHYSICIAN: Dr. Lopez * (dictated by Victoriano Jeffers, ANGELA). CHIEF COMPLAINT: "Heart going fast." HISTORY OF PRESENT ILLNESS: Ms. Gomez is a 78-year-old female with a past medical history significant for SIADH with hyponatremia, hypothyroidism, and hypertension. She presented today to the emergency department with a chief complaint of palpitations. She also reported generalized weakness and feeling tremulous. The patient states that she went to the gym yesterday, did about 45 minutes on the bicycle and that is when she started to feel poorly. States she felt palpitations, that she was feeling lightheaded and a little short of breath. States she has had very little appetite. States that prior to this she was feeling rather normal. Her daughter who was with her today states that she saw her mother last Wednesday and that she seemed absolutely fine. The patient states that she feels the palpitations more when she is lying down. Nothing really seems to make her otherwise feel better or worse. Seems unsure if the palpitations were provoked by activity or not. Denies any recent fever, chills, chest pain, nausea, difficulty urinating, unusual muscle aches or joint stiffness, rashes, lesions or wounds, visual changes, gait disturbance, headache , or muscle cramps. She was noted back in January 2019 to have an admission to the ICU for hyponatremia with a sodium level of 118. She has since per her report been on a fluid restricted diet of 5 and two-thirds cups of water per day as well as taking a sodium chloride supplement. States that she went from taking 2 tablets a day to 1 tablet a day about a month ago. She states that she has been keeping up with the fluid restriction as well as the daily sodium chloride tablets. The patient also had another recent admission for an elective left total knee replacement in April of 2019. She does recall that she finished about a month supply of Eliquis, but forgot to fill her new prescription that was given to her. It should be noted that since her prior admission in January and even before her sodium levels have been low with normal levels noted in March 2019 and once in April 2019. The patient also notes that she feels as if she has been voiding a lot overnight and also when she got here to the emergency department denies any trouble with bowel movements, but states that she has had a couple instances of diarrhea yesterday and last night. While in the emergency department today, it was noted that her sodium level was 129, magnesium 1.6, BNP 557, D-dimer 916, RBC 3.10, hemoglobin 9.3, hematocrit of 28, TSH 1.4, and free T4 1.35. She was found on EKG to be in AFib with RVR. CTA of the chest ruled out PE. While in the emergency department, she was given diltiazem 10 mg IV, mag sulfate 3 g IV, normal saline 1 L bolus with 100 mL per hour continuous rate. Hospital Medicine was asked to evaluate this patient for admission in relation to the hyponatremia, hypoxemia, and new-onset AFib. PAST MEDICAL HISTORY: 1. SIADH. 2. Hyponatremia. 3. Hypothyroidism. 4. Hypertension. 5. Bilateral cataracts. 6. Anxiety. 7. Diverticulitis. PAST SURGICAL HISTORY: 1. Left total knee arthroplasty in April 2019. 2. Right total knee arthroplasty in 2011. 3. Tonsillectomy. 4. Muscular repair of the right eye in her 30s. 5. Bilateral cataract removal approximately 2 years ago. HOME MEDICATIONS: 1. Calcium carbonate/vitamin D3 one cap p.o., does not take regularly. 2. Acetaminophen 500 mg 1 to 2 tabs p.o. q.8 hours p.r.n. 3. Amlodipine 10 mg p.o. q.a.m. 4. Sodium chloride 1 g p.o. daily. 5. Levothyroxine 125 mcg p.o. q.a.m. 6. Irbesartan 150 mg p.o. q.a.m. 7. Ibuprofen 2 tabs daily p.r.n. ALLERGIES: No known drug allergies. FAMILY HISTORY: Mother with hypertension and thyroid cancer. Father with hypertension, at age 80 from "heart disease." SOCIAL HISTORY: The patient states that a surrogate decision maker for her would be her daughter, Quyen Gomez. Denies any current or previous tobacco use. States she has wine occasionally, but not every night, usually just 1 glass. Last time she had any wine was last Wednesday. She lives by herself. She has a pet cat. 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 REVIEW OF SYSTEMS: A 12-point review of systems was completed with this patient. Please see HPI for all pertinent positives and negatives. PHYSICAL EXAMINATION CONSTITUTIONAL: The patient is sitting up in bed, in no acute distress. VITAL SIGNS: Temp 96.6, heart rate 105, respiratory rate 16, O2 sat 94% on 4 L O2 via nasal cannula, blood pressure 114/69. HEENT: PERRL. No scleral icterus. Normocephalic. RESPIRATORY: Bilateral upper lobes clear to auscultation. Inspiratory rales noted to all other lobes. No wheezing. CARDIOVASCULAR: Heart rate irregular. S1, S2 present. No murmurs, rubs, or gallops noted. GI: Bowel sounds throughout. Mild distention. Soft. Mild tenderness to left lower quadrant with palpation. EXTREMITIES: Trace pitting edema to bilateral lower extremities. MUSCULOSKELETAL: Strength and range of motion appear to be within normal limits to bilateral upper extremities and right lower extremity. Mild deficit to left lower extremity. NEURO: Alert and oriented x3. Cranial nerves II through XII grossly intact. PSYCH: Responds appropriately. Normal affect. SKIN: Well-healed incision to anterior left knee. Otherwise, dry and intact. DIAGNOSTIC STUDIES/LAB DATA: Original EKG upon arrival shows AFib with RVR with a rate of 147. EKG a few hours later shows AFib with a rate of 110. Chest CTA, impression: No definite evidence of pulmonary embolus is noted. Cardiomegaly is noted. No evidence of aneurysmal dilatation or aortic dissection is noted. There may be prominent vessels suggestive of vascular congestion. Chest x-ray, impression: Cardiomegaly with interstitial edema with vascular congestion. Lab studies: WBC 9.0, RBC 3.1, hemoglobin 9.3, hematocrit 28, MCV 89, MCH 30, RDW 15. D-dimer 916. Sodium 129, potassium 3.9, chloride 97, carbon dioxide 24 , anion gap 8, BUN 18, creatinine 0.84, estimated GFR 65.4, BUN/creatinine ratio 21.4, glucose 117, lactic acid 0.9, calcium 9.1, magnesium 1.6. Total bilirubin 0.4, AST 12, ALT 8, alk phos 94. Troponin 0.00, BNP 557. TSH 1.4, free T4 1.35. ASSESSMENT AND PLAN: Ms. Gomez is a 78-year-old female with past medical history significant for syndrome of inappropriate antidiuretic hormone secretion with hyponatremia, hypothyroidism, hypertension, and recent left total knee arthroplasty. She presented to the emergency department today in relation to her palpitations and was noted to be in new-onset atrial fibrillation. Hospital Medicine was asked to evaluate this patient for admission. 1. Hyponatremia. Sodium 129, BNP 557. Likely due to a hypervolemic state. Syndrome of inappropriate antidiuretic hormone secretion versus fluid overload. Clinical findings suggestive of heart failure. Transthoracic echocardiogram. Lasix 20 mg IV x1. Fluid restriction 1200 mL. Labs to be drawn on 07/25/19. Urine studies to further assess syndrome of inappropriate antidiuretic hormone secretion. 2. New-onset atrial fibrillation. Palpitations since yesterday. No known history of arrhythmia. Has responded with better rate control after receiving diltiazem in the ED. However, if the patient is truly in heart failure, we will start beta- gregoria rather than calcium channel gregoria. Metoprolol tartrate 25 mg b.i.d. Monitor heart rate and BPs. Hold home BP meds for now. Again, transthoracic echocardiogram ordered. If poor response, we will consult Cardiology. 3. New-onset hypoxia, requiring 4 L O2 to maintain 94% O2 sat while in the ED. Chest CTA negative for pulmonary embolism. Lasix 20 mg IV x1 and monitor response. Continue O2 p.r.n. 4. Anemia, unresolved anemia since prior joint surgery in April 2019. Values lower than prior noted anemia from earlier dates. Anemia workup ordered. 5. History of hypothyroidism. TSH 1.4, free T4 1.35. Reduce levothyroxine dosage to 112 mcg p.o. q.a.m. 6. History of hypertension. Has had good BP control since admission. Holding home meds as we are starting metoprolol. Continue to monitor. 7. FEN: Heart-healthy diet, no caffeine. 1200 mL fluid restriction. 8. Code status: Full code. 9. DVT prophylaxis: Eliquis. TIME SPENT: Time spent on this admission was approximately 75 minutes with just over 30 minutes of that being [id number] with the patient for interview, physical exam, and review of plan of care. This case has been reviewed by my attending physician, Dr. Lopez, and she agrees with this plan. VICTORIANO JEFFERS NP [id number]/[facility] #: [id number] SABINE
--- NOTE | 2019-07-24 15:44 | ECHO ---
*[facility]* [place] [address] Fax #: [phone] Transthoracic Echocardiogram Patient: Kassi Gomez : 1940 Study Date: 07/24/2019 Age: 78 Gender: F HR: 89 bpm Height: 62 in /157.5 cm BSA: 1.74 m^2 Weight: 159.7 lb /72.6 kg BMI: 29.3 kg/m^2 *Stock Feeder: * Connie Bentley *Referring Physician: * Pam French *Reading Physician: * Dimitrios Rodriguez MD Indications: SOB. History: Palpitations. Atrial fibrillation. Conclusions Summary: - Left ventricle: Systolic function is normal. The estimated ejection fraction is 50-55%. Wall motion is normal; there are no regional wall motion abnormalities. - Right ventricle: Systolic function is normal. - Atrial septum: No defect or patent foramen ovale is identified. - Mitral valve: There is moderate regurgitation. - Aortic valve: There is no evidence of stenosis. - Tricuspid valve: There is mild regurgitation. - Pulmonary arteries: Systolic pressure is within the normal range, estimated to be 25 mm Hg. - Study data: No prior study is available for comparison. Study data: Transthoracic echocardiogram. Procedure: Transthoracic echocardiography was performed. Image quality was good. Complete 2D, spectral Doppler, and color flow Doppler. Location: Bedside. Patient status: Inpatient. Patient room number: 447-2. No prior study is available for comparison. Rhythm: Atrial fibrillation. Findings Left ventricle: The cavity size is normal. Wall thickness is mildly to moderately increased. Systolic function is normal. The estimated ejection fraction is 50-55%. Wall motion is normal; there are no regional wall motion abnormalities. Left ventricular diastolic function parameters are normal. Right ventricle: The cavity size is normal. Systolic function is normal. Left atrium: The atrium is moderately dilated. Right atrium: The atrium is at the upper limits of normal in size. Atrial septum: No defect or patent foramen ovale is identified. Mitral valve: Appears calcified. The leaflets are mildly thickened. There is no evidence of stenosis. There is moderate regurgitation. Aortic valve: The valve is trileaflet. The leaflets are mildly calcified. There is no evidence of stenosis. There is no significant regurgitation. Tricuspid valve: The valve is structurally normal. There is no evidence of stenosis. There is mild regurgitation. Pulmonic valve: The valve is structurally normal. There is no evidence of stenosis. There is trace regurgitation. Aorta: The aortic root appears normal. Pericardium: There is no significant pericardial effusion. Pulmonary arteries: Systolic pressure is within the normal range, estimated to be 25 mm Hg. Systemic veins: Inferior vena cava: The vessel is normal in size. There is (>= 50%) respiratory change in the IVC dimension. Pulmonary veins: The Pulmonary veins appear normal. Measurements Left ventricle Value Ref Right atrium Value Ref VIDAL, LAX 3.9 cm 3.8 - SI dim, ES 5.2 cm 3.4 - 5.2 5.3 ESD, LAX 3.0 cm 2.2 - ML dim, ES, A4C (H) 4.6 cm 2.6 - 3.5 4.4 FS, LAX (L) 24 % 27 - 45 SI dim, ES, A4C 5.2 cm 3.4 - PW, ED, LAX (H) 1.3 cm 0.6 - 5.3 0.9 FS (L) 24 % 27 - 45 Aortic valve Value Ref Mid-wall FS 8 % -------- Peak v, S 1.44 m/sec -------- PW, ED (H) 1.3 cm 0.6 - VTI, S 25.5 cm -------- 0.9 Mean grad, S 4.0 mm Hg -------- PW/ID, ED 0.34 -------- Peak grad, S 8.0 mm Hg -------- Qs 3.6 L/min -------- ADELITA, VTI 1.76 cm^2 -------- E', lat sowmya, TDI 11.6 cm/sec >=10.0 ADELITA, Vmax 1.81 cm^2 - ------- E/e', lat sowmya, TDI 9 -------- E', med sowmya, TDI 13.0 cm/sec >=7.0 Mitral valve Value R ef E/e', med sowmya, TDI 8 -------- Peak E 1.06 m/sec ---- ---- E', avg, TDI 12.3 cm/sec -------- Decel time 230 ms ---- ---- E/e', avg, TDI 9 <=14 Peak grad, D 4.5 mm Hg - ------- LVOT Value Ref Pulmonic valve Value Ref Diam, S 2.00 cm -------- Peak v, S 0.73 m/sec -------- Area 3.1 cm^2 -------- Peak grad, S 2.0 mm Hg -------- Peak kristy, S 0.83 m/sec -------- Mean grad, S 1 mm Hg -------- Tricuspid valve Value Ref SV 45 ml -------- TR peak v 2.24 m/sec <=2.8 Peak RV-RA grad, 20 mm Hg -------- Ventricular septum Value Ref S IVS, ED (H) 1.4 cm 0.6 - Max TR kristy 2.3 m/sec -------- 0.9 Aortic root Value Ref Right ventricle Value Ref Root diam 3.1 cm <3.9 VIDAL, LAX 3.3 cm -------- VIDAL minor ax, A4C 3.3 cm 1.9 - Ascending aorta Value Ref mid 3.5 AAo AP diam, S 3.3 cm -------- Left atrium Value Ref Inferior vena cava Value Ref ML dim, A4C 5.7 cm -------- Diam 2.7 cm -------- SI dim, A4C 6.2 cm -------- Vol/bsa, ES, 1-p (H) 48 ml/m^2 11 - 40 A4C Vol/bsa, ES, A/L (H) 42 ml/m^2 16 - 34 Legend: (L) and (H) norman values outside specified reference range. Prepared and electronically signed by Dimitrios Rodriguez MD 07/24/2019 15:44
[2019-07-24] MEDS: Calcium Carbonate CHEW TAB* 500 MG (TUMS) PO PRN ×2 (17:46→21:19)
[2019-07-24] MEDS: Apixaban* 5 MG TAB PO SCH (21:19)
[2019-07-25] MEDS: Levothyroxine TAB* 112 MCG TAB PO SCH (05:27)
[2019-07-25] MEDS ORDERED: Levothyroxine TAB* 100 MCG TAB PO SCH (06:00)
[2019-07-25 06:34] LABS: ABS Basophils 0.1 10^3/ul (0-0.2); ABS Eosinophils 0.1 10^3/ul (0-0.6); ABS Lymphocytes 1.7 10^3/ul (1.0-4.8); ABS Monocytes 0.9 10^3/ul (0-0.8); Eosinophil % 0.9 %; Hematocrit 26 % (35-47); Lymphocyte % 30.1 %; Mean Corpuscular HGB Conc 34 g/dL (31-36); Mean Corpuscular Hemoglobin 31 pg (27-31); Mean Corpuscular Volume 89 fL (80-97); Mean Platelet Volume 7.2 fL (7.4-10.4); Platelet Count 380 10^3/uL (150-450); Red Blood Count 2.93 10^6 /uL (3.70-4.87); Red Cell Distribution Width 15 % (10-15); White Blood Count 5.8 10^3/uL (3.5-10.8)
[2019-07-25 07:01] LABS: Anion Gap 8 mmol/L (2-11); BUN/Creatinine Ratio 16.7 (8-20); Blood Urea Nitrogen 14 mg/dL (6-24); CO2 Carbon Dioxide 25 mmol/L (22-32); Calcium 9.1 mg/dL (8.6-10.3); Chloride 97 mmol/L (101-111); EGFR African American 79.1 (>60); EGFR Non-African American 65.4 (>60); Glucose 90 mg/dL (70-100); Magnesium 1.9 mg/dL (1.9-2.7); Sodium 130 mmol/L (135-145)
[2019-07-25 07:07] LABS: % Iron Saturation 7 % (15-55); Iron < 20 ug/dL (50-212); Total Iron Binding Capacity 291 mcg/dL (250-450); Transferrin 208 mg/dL (203-362)
[2019-07-25 07:24] LABS: Ferritin 62.4 ng/mL (11-307)
[2019-07-25 07:27] LABS: Folate 11.62 ng/mL (>3.99)
[2019-07-25] MEDS: Apixaban* 5 MG TAB PO SCH ×2 (09:47→20:28)
[2019-07-25] MEDS: Metoprolol Tartrate TAB* 25 MG PO SCH ×2 (09:47→20:28)
[2019-07-25] MEDS ORDERED: Metoprolol Tartrate TAB* 25 MG PO ONE (09:57)
[2019-07-25] MEDS: Acetaminophen TAB* 325 MG PO PRN (13:18)
--- NOTE | 2019-07-25 14:24 | PN ---
Subjective Date of Service: 07/25/19 Interval History: Ms. Gomez is feeling better today. SOB is improved, but still present to a lesser degree. No longer feeling any palpitations or feelings of racing heartbeat. She has been up ambulating to the bathroom, but not any further. No concerns from nursing. Family History: Unchanged from Admission Social History: Unchanged from Admission Past Medical History: Unchanged from Admission Objective Active Medications: Acetaminophen (Tylenol Tab*) 650 mg PO Q4H PRN PAIN - MILD Apixaban (Eliquis*) 5 mg PO BID CRUZ Calcium Carbonate (Tums*) 500 mg PO Q4H PRN INDIGESTION Levothyroxine Sodium (Synthroid Tab*) 112 mcg PO QAM@0600 CRZU Metoprolol Tartrate (Lopressor Tab*) 25 mg PO BID CRUZ Vital Signs - 8 hr 07/25/19 11:15 Temperature 97.5 F Pulse Rate 88 Respiratory 28 Rate Blood Pressure 107/57 (mmHg) O2 Sat by Pulse 96 Oximetry Oxygen Devices in Use Now: Nasal Cannula - 2L Appearance: Elderly female sitting in bed in NAD Ears/Nose/Mouth/Throat: Mucous Membranes Moist Neck: NL Appearance and Movements; NL JVP, Trachea Midline Respiratory: Symmetrical Chest Expansion and Respiratory Effort, - - Faint crackles to bilat bases Cardiovascular: NL Sounds; No Murmurs; No JVD, - - Irregular Abdominal: NL Sounds; No Tenderness; No Distention Extremities: No Edema Neurological: Alert and Oriented x 3 Lines/Tubes/Other Access: Clean, Dry and Intact Peripheral IV Nutrition: Taking PO's Result Diagrams: 07/25/19 06:16 07/25/19 06:16 Assess/Plan/Problems-Billing Assessment: Ms. Gomez is a 78 yo F with PMH of SIADH, hypothyroidism, HTN, anxiety; who presented to the ED with c/o palpitations and was found to be in new onset atrial fibrillation with RVR. - Patient Problems (1) Atrial fibrillation with RVR Code(s): I48.91 - UNSPECIFIED ATRIAL FIBRILLATION Comment: - Rates up into 160s on admission, now down to 90-110s - CHADS-VASc2 score is 4 - Echo shows EF 50-55%, moderate MR, otherwise unremarkable - Continue metoprolol (increased to 37.5mg BID), Eliquis (2) Hypoxia Code(s): R09.02 - HYPOXEMIA Comment: - Suspected secondary to RVR and possible component of fluid overload - No evidence of CHF, but imaging does show some vascular congestion there are crackles to bilat lung bases - Wean oxygen as tolerated - Furosdemide x1 (3) SIADH (syndrome of inappropriate ADH production) Comment: - Mild hyponatremia on admission, likely secondary to fluid overload - Fluid restriction 1200mL/day (4) Anemia Code(s): D64.9 - ANEMIA, UNSPECIFIED Comment: - Mild iron deficiency - Start ferrous sulfate (5) Hypertension Code(s): I10 - ESSENTIAL (PRIMARY) HYPERTENSION Comment: - Normotensive - Likely will not need to resume amlodipine or irbesartan at d/c d/t addition of BB - Continue metoprolol (6) Hypothyroidism Code(s): E03.9 - HYPOTHYROIDISM, UNSPECIFIED Comment: - Elevated free T4 - Continue levothyroxine (dose reduced on admission) (7) DVT prophylaxis Code(s): Z29.9 - ENCOUNTER FOR PROPHYLACTIC MEASURES, UNSPECIFIED Comment: - Tessquis (8) Full code status Code(s): Z78.9 - OTHER SPECIFIED HEALTH STATUS Comment: Status and Disposition: Inpatient. Anticipate d/c home when medically stable, likely tomorrow. Attending: Michael Desai
[2019-07-25] MEDS ORDERED: Furosemide IV* 10 MG/ML 2 ML VIAL (20 MG) IV ONE (14:25)
[2019-07-26] MEDS: Levothyroxine TAB* 112 MCG TAB PO SCH (05:34)
[2019-07-26 06:48] LABS: ABS Eosinophils 0.1 10^3/ul (0-0.6); ABS Lymphocytes 1.8 10^3/ul (1.0-4.8); ABS Neutrophils 2.6 10^3/ul (1.5-7.7); Eosinophil % 1.3 %; Hematocrit 26 % (35-47); Hemoglobin 8.9 g/dL (12.0-16.0); Lymphocyte % 32.2 %; Mean Corpuscular HGB Conc 34 g/dL (31-36); Mean Corpuscular Hemoglobin 30 pg (27-31); Mean Corpuscular Volume 89 fL (80-97); Mean Platelet Volume 7.6 fL (7.4-10.4); Platelet Count 397 10^3/uL (150-450); Red Blood Count 2.96 10^6 /uL (3.70-4.87); Red Cell Distribution Width 14 % (10-15); White Blood Count 5.6 10^3/uL (3.5-10.8)
[2019-07-26 07:09] LABS: BUN/Creatinine Ratio 22.6 (8-20); Calcium 9.1 mg/dL (8.6-10.3); EGFR African American 79.1 (>60); EGFR Non-African American 65.4 (>60)
[2019-07-26] MEDS: Apixaban* 5 MG TAB PO SCH ×2 (08:50→21:49)
[2019-07-26] MEDS: Ferrous Sulfate TAB* 325 MG PO SCH (08:50)
[2019-07-26] MEDS: Cyanocobalamin TAB* 500 MCG PO SCH (08:50)
[2019-07-26] MEDS: Metoprolol Tartrate TAB* 25 MG PO SCH (08:54)
[2019-07-26] MEDS ORDERED: Furosemide IV* 10 MG/ML VIAL (40 MG) IV SLOW PU ONE (09:55)
--- NOTE | 2019-07-26 13:21 | PN ---
Subjective Date of Service: 07/26/19 Interval History: Patient continues to have intermittent palpitations. Patient denies CP, SOB, F/C , N/V, abdominal pain, diarrhea, dysuria, or other pain. Patient has not been dizzy on standing. Patient is concerned about he amlodipine having caused her Afib and would like to not go back on it. Family History: Unchanged from Admission Social History: Unchanged from Admission Past Medical History: Unchanged from Admission Objective Active Medications: Acetaminophen (Tylenol Tab*) 650 mg PO Q4H PRN PRN Reason: PAIN - MILD Last Admin: 07/25/19 13:18 Dose: 650 mg Apixaban (Eliquis*) 5 mg PO BID [facility] Last Admin: 07/26/19 08:50 Dose: 5 mg Calcium Carbonate (Tums*) 500 mg PO Q4H PRN PRN Reason: INDIGESTION Last Admin: 07/24/19 21:19 Dose: 500 mg Cyanocobalamin (Vitamin B12 Tab*) 500 mcg PO DAILY [facility] Last Admin: 07/26/19 08:50 Dose: 500 mcg Ferrous Sulfate (Ferrous Sulfate Tab*) 325 mg PO DAILY [facility] Last Admin: 07/26/19 08:50 Dose: 325 mg Levothyroxine Sodium (Synthroid Tab*) 112 mcg PO QAM@0600 [facility] Last Admin: 07/26/19 05:34 Dose: 112 mcg Metoprolol Tartrate (Lopressor Tab*) 50 mg PO BID [facility] Oxygen Devices in Use Now: None Appearance: Patient is a 78yo female who appears stated age and is sitting in the bed in [facility]. Eyes: No Scleral Icterus, PERRLA Ears/Nose/Mouth/Throat: NL Teeth, Lips, Gums, Clear Oropharnyx, Mucous Membranes Moist Neck: NL Appearance and Movements; NL JVP, Trachea Midline Respiratory: Symmetrical Chest Expansion and Respiratory Effort, - - Slight rales in B/L Lower Lobes. Cardiovascular: NL Sounds; No Murmurs; No JVD, - - 1+ B/L LE edema. Irregularly irregular tachycardia Abdominal: NL Sounds; No Tenderness; No Distention, No Hepatosplenomegaly Lymphatic: No Cervical Adenopathy Extremities: No Clubbing, Cyanosis Skin: No Rash or Ulcers, No Nodules or Sclerosis Neurological: Alert and Oriented x 3, NL Sensation, NL Muscle Strength and Tone , - - CN II-XII intact. Result Diagrams: 07/26/19 06:17 07/26/19 06:17 Microbiology and Other Data: Microbiology 07/24/19 12:03 Urine Culture - Final Urine No Growth (<1,000 CFU/mL) Assess/Plan/Problems-Billing Assessment: Ms. Gomez is a 78 yo F with PMH of SIADH, hypothyroidism, HTN, anxiety; who presented to the ED with c/o palpitations and was found to be in new onset atrial fibrillation with RVR. - Patient Problems (1) Hyponatremia Current Visit: Yes Status: Acute Code(s): E87.1 - HYPO-OSMOLALITY AND HYPONATREMIA SNOMED Code(s): 90206003 Comment: - Mild, worsened again today. - Previously attributed to SIADH, but this is of unclear veracity as patient was on a thiazide diuretic at that time - Patient does appear fluid overloaded, give lasix again today - Monitor closely, no apparent symptoms. (2) Anemia Current Visit: Yes Status: Acute Code(s): D64.9 - ANEMIA, UNSPECIFIED SNOMED Code(s): 538016108 Comment: - Mild iron deficiency - Start ferrous sulfate - Consider IV Iron given HF in the future if no improvement. (3) Atrial fibrillation with RVR Current Visit: Yes Status: Acute Code(s): I48.91 - UNSPECIFIED ATRIAL FIBRILLATION SNOMED Code(s): 920740139296413 Comment: - Rates up into 160s on admission, now down to 90-110, but up to 140s when walking - CHADS-VASc2 score is 4, Initiated on Eliquis, no signs of bleeding - Echo shows EF 50-55%, moderate MR, otherwise unremarkable - Increase Metoprolol succinate to 50 BID (4) Hypoxia Current Visit: Yes Status: Acute Code(s): R09.02 - HYPOXEMIA SNOMED Code(s ): 943381670 Comment: - Suspected secondary to RVR and possible component of fluid overload - Increased wall thickness and dilated LA consistent with predispostion to HFpEF - Wean oxygen as tolerated - Furosemide as needed (5) Hypertension Current Visit: No Status: Chronic Code(s): I10 - ESSENTIAL (PRIMARY) HYPERTENSION SNOMED Code(s): 93459173 Comment: - Normotensive - Likely will not need to resume amlodipine or irbesartan at d/c d/t addition of BB - Continue metoprolol (6) Hypothyroidism Current Visit: No Status: Chronic Code(s): E03.9 - HYPOTHYROIDISM, UNSPECIFIED SNOMED Code(s): 43170574 Comment: - Elevated free T4 - Continue levothyroxine (dose reduced on admission) (7) Full code status Current Visit: No Status: Acute Code(s): Z78.9 - OTHER SPECIFIED HEALTH STATUS SNOMED Code(s): 349334770 Comment: (8) DVT prophylaxis Current Visit: No Status: Acute Code(s): Z29.9 - ENCOUNTER FOR PROPHYLACTIC MEASURES, UNSPECIFIED SNOMED Code(s): 112110589 Comment: - Eliquis Status and Disposition: Inpatient. Anticipate d/c home when medically stable, likely tomorrow.
[2019-07-26] MEDS ORDERED: Metoprolol Tartrate TAB* 50 mg PO SCH ×2 (17:38→21:00)
[2019-07-26] MEDS: Metoprolol Succinate XL TAB* 50 MG PO SCH (18:25)
[2019-07-27] MEDS: Levothyroxine TAB* 112 MCG TAB PO SCH (05:14)
[2019-07-27 07:28] LABS: ABS Basophils 0.1 10^3/ul (0-0.2); ABS Lymphocytes 1.4 10^3/ul (1.0-4.8); ABS Monocytes 1.2 10^3/ul (0-0.8); ABS Neutrophils 2.8 10^3/ul (1.5-7.7); Eosinophil % 0.6 %; Hematocrit 27 % (35-47); Hemoglobin 9.2 g/dL (12.0-16.0); Lymphocyte % 26.1 %; Mean Corpuscular HGB Conc 33 g/dL (31-36); Mean Corpuscular Hemoglobin 30 pg (27-31); Mean Corpuscular Volume 89 fL (80-97); Mean Platelet Volume 7.7 fL (7.4-10.4); Platelet Count 402 10^3/uL (150-450); Red Blood Count 3.09 10^6 /uL (3.70-4.87); Red Cell Distribution Width 15 % (10-15); White Blood Count 5.5 10^3/uL (3.5-10.8)
[2019-07-27 07:39] LABS: Magnesium 1.8 mg/dL (1.9-2.7); Potassium 3.8 mmol/L (3.5-5.0)
[2019-07-27 07:45] LABS: BUN/Creatinine Ratio 25.9 (8-20); EGFR African American 82.5 (>60); EGFR Non-African American 68.2 (>60)
[2019-07-27] MEDS: Metoprolol Succinate XL TAB* 50 MG PO SCH (08:48)
[2019-07-27] MEDS: Apixaban* 5 MG TAB PO SCH ×2 (08:48→20:49)
[2019-07-27] MEDS: Ferrous Sulfate TAB* 325 MG PO SCH (08:48)
[2019-07-27] MEDS: Cyanocobalamin TAB* 500 MCG PO SCH (08:48)
[2019-07-27] MEDS ORDERED: Magnesium Sulfate 1 GM IV* 1 GM/100 ML BAG IV ONE (08:53)
[2019-07-27] MEDS ORDERED: Metoprolol Succinate XL TAB* 25 MG PO ONE (08:55)
[2019-07-27] MEDS ORDERED: NS 0.9% 500 ML* 500 ML IV SCH (09:00)
[2019-07-27 13:49] LABS: BUN/Creatinine Ratio 26.8 (8-20); Calcium 8.8 mg/dL (8.6-10.3); EGFR African American 81.4 (>60); EGFR Non-African American 67.2 (>60)
--- NOTE | 2019-07-27 16:20 | PN ---
Subjective Date of Service: 07/27/19 Interval History: Patient is feeling well today. Patient feels slightly dizzy on standing. Patient denies F/C, N/V, abdominal pain, CP, SOB, diarrhea, or other pain. Family History: Unchanged from Admission Social History: Unchanged from Admission Past Medical History: Unchanged from Admission Objective Active Medications: Acetaminophen (Tylenol Tab*) 650 mg PO Q4H PRN PRN Reason: PAIN - MILD Last Admin: 07/25/19 13:18 Dose: 650 mg Apixaban (Eliquis*) 5 mg PO BID [facility] Last Admin: 07/27/19 08:48 Dose: 5 mg Calcium Carbonate (Tums*) 500 mg PO Q4H PRN PRN Reason: INDIGESTION Last Admin: 07/24/19 21:19 Dose: 500 mg Cyanocobalamin (Vitamin B12 Tab*) 500 mcg PO DAILY [facility] Last Admin: 07/27/19 08:48 Dose: 500 mcg Ferrous Sulfate (Ferrous Sulfate Tab*) 325 mg PO DAILY [facility] Last Admin: 07/27/19 08:48 Dose: 325 mg Levothyroxine Sodium (Synthroid Tab*) 112 mcg PO QAM@0600 [facility] Last Admin: 07/27/19 05:14 Dose: 112 mcg Metoprolol Succinate (Toprol Xl Tab*) 100 mg PO BID [facility] Vital Signs - 8 hr 07/27/19 10:52 Temperature 97.5 F Pulse Rate 97 Respiratory 18 Rate Blood Pressure 107/66 (mmHg) O2 Sat by Pulse 97 Oximetry Oxygen Devices in Use Now: None Appearance: Patient is a 78yo female who appears stated age and is sitting in the bed in [facility]. Eyes: No Scleral Icterus, PERRLA Ears/Nose/Mouth/Throat: NL Teeth, Lips, Gums, Clear Oropharnyx, Mucous Membranes Moist Neck: NL Appearance and Movements; NL JVP, Trachea Midline Respiratory: Symmetrical Chest Expansion and Respiratory Effort, - - Slight Rales heard in B/L Lower Lobes. Cardiovascular: NL Sounds; No Murmurs; No JVD, No Edema, - - Irregularly Irregular tachycardia. Abdominal: NL Sounds; No Tenderness; No Distention, No Hepatosplenomegaly Lymphatic: No Cervical Adenopathy Extremities: No Clubbing, Cyanosis Skin: No Rash or Ulcers, No Nodules or Sclerosis Neurological: Alert and Oriented x 3, NL Sensation, NL Muscle Strength and Tone , - - CN II-XII intact. Result Diagrams: 07/27/19 07:18 07/27/19 13:25 Microbiology and Other Data: Microbiology 07/24/19 12:03 Urine Culture - Final Urine No Growth (<1,000 CFU/mL) Assess/Plan/Problems-Billing Assessment: Ms. Gomez is a 78 yo F with PMH of SIADH, hypothyroidism, HTN, anxiety; who presented to the ED with c/o palpitations and was found to be in new onset atrial fibrillation with RVR. - Patient Problems (1) Atrial fibrillation with RVR Current Visit: Yes Status: Acute Code(s): I48.91 - UNSPECIFIED ATRIAL FIBRILLATION SNOMED Code(s): 376630065234093 Comment: - Rates up into 160s on admission, now down to 90-110, but up to 140s when walking - CHADS-VASc2 score is 4, Initiated on Eliquis, no signs of bleeding - Echo shows EF 50-55%, moderate MR. - Increase Metoprolol succinate to 100 BID (2) Hyponatremia Current Visit: Yes Status: Acute Code(s): E87.1 - HYPO-OSMOLALITY AND HYPONATREMIA SNOMED Code(s): 47043731 Comment: - Mild, worsened again today. - Previously attributed to SIADH, but this is of unclear veracity as patient was on a thiazide diuretic at that time - Patient appears euvolemic today, but with worsening tachycardia and elevating BUN/Cret ratio, fluid was trialed which wrosened fluid. - Possibly due to poor forward flow from AFib with HFrEF, hopefully will improve as rate control improves. - Monitor closely, no apparent symptoms. (3) Anemia Current Visit: Yes Status: Acute Code(s): D64.9 - ANEMIA, UNSPECIFIED SNOMED Code(s): 674494784 Comment: - Mild iron deficiency - Start ferrous sulfate - Consider IV Iron given HF in the future if no improvement. (4) Hypoxia Current Visit: Yes Status: Acute Code(s): R09.02 - HYPOXEMIA SNOMED Code(s ): 956065286 Comment: - Suspected secondary to RVR and possible component of fluid overload - Increased wall thickness and dilated LA consistent with predispostion to HFpEF - Now on Room Air - Appears Euvolemic (5) Hypertension Current Visit: No Status: Chronic Code(s): I10 - ESSENTIAL (PRIMARY) HYPERTENSION SNOMED Code(s): 00010087 Comment: - Normotensive - Likely will not need to resume amlodipine or irbesartan at d/c d/t addition of BB - Continue metoprolol (6) Hypothyroidism Current Visit: No Status: Chronic Code(s): E03.9 - HYPOTHYROIDISM, UNSPECIFIED SNOMED Code(s): 62830716 Comment: - Elevated free T4 - Continue levothyroxine (dose reduced on admission) (7) Full code status Current Visit: No Status: Acute Code(s): Z78.9 - OTHER SPECIFIED HEALTH STATUS SNOMED Code(s): 687854517 Comment: (8) DVT prophylaxis Current Visit: No Status: Acute Code(s): Z29.9 - ENCOUNTER FOR PROPHYLACTIC MEASURES, UNSPECIFIED SNOMED Code(s): 982749063 Comment: - Eliquis Status and Disposition: Inpatient. Anticipate d/c home when medically stable.
[2019-07-27] MEDS: Acetaminophen TAB* 325 MG PO PRN (20:49)
[2019-07-27] MEDS: Metoprolol Succinate XL TAB* 100 MG PO SCH (20:49)
[2019-07-27] MEDS ORDERED: Metoprolol Succinate XL TAB* 50 MG PO SCH (21:00)
[2019-07-28] MEDS: Levothyroxine TAB* 112 MCG TAB PO SCH (05:44)
[2019-07-28 07:41] LABS: BUN/Creatinine Ratio 24.4 (8-20); Blood Urea Nitrogen 20 mg/dL (6-24); CO2 Carbon Dioxide 21 mmol/L (22-32); Calcium 8.8 mg/dL (8.6-10.3); Chloride 95 mmol/L (101-111); EGFR African American 81.4 (>60); EGFR Non-African American 67.2 (>60); Glucose 88 mg/dL (70-100); Sodium 125 mmol/L (135-145)
[2019-07-28 08:48] LABS: Anion Gap 9 mmol/L (2-11)
[2019-07-28] MEDS: Ferrous Sulfate TAB* 325 MG PO SCH (10:04)
[2019-07-28] MEDS: Apixaban* 5 MG TAB PO SCH ×2 (10:04→21:07)
[2019-07-28] MEDS: Metoprolol Succinate XL TAB* 100 MG PO SCH ×2 (10:04→21:07)
[2019-07-28] MEDS: Cyanocobalamin TAB* 500 MCG PO SCH (10:04)
[2019-07-28 10:17] LABS: Magnesium 1.8 mg/dL (1.9-2.7); Potassium Redraw 4.1 mmol/L (3.5-5.0)
[2019-07-28] MEDS ORDERED: Magnesium Sulfate 1 GM IV* 1 GM/100 ML BAG IV ONE (10:38)
[2019-07-28] MEDS ORDERED: Sodium Chloride TAB* 1 GM PO ONE (13:15)
--- NOTE | 2019-07-28 15:30 | PN ---
Subjective Date of Service: 07/28/19 Interval History: Reports she feels well today and would like to go home. Denies sob, dizziness, palpitations, cp, nausea, vomiting, diaphoresis. Family History: Unchanged from Admission Social History: Unchanged from Admission Past Medical History: Unchanged from Admission Objective Active Medications: Acetaminophen (Tylenol Tab*) 650 mg PO Q4H PRN PRN Reason: PAIN - MILD Last Admin: 07/27/19 20:49 Dose: 650 mg Apixaban (Eliquis*) 5 mg PO BID [facility] Last Admin: 07/28/19 10:04 Dose: 5 mg Calcium Carbonate (Tums*) 500 mg PO Q4H PRN PRN Reason: INDIGESTION Last Admin: 07/24/19 21:19 Dose: 500 mg Cyanocobalamin (Vitamin B12 Tab*) 500 mcg PO DAILY [facility] Last Admin: 07/28/19 10:04 Dose: 500 mcg Ferrous Sulfate (Ferrous Sulfate Tab*) 325 mg PO DAILY [facility] Last Admin: 07/28/19 10:04 Dose: 325 mg Levothyroxine Sodium (Synthroid Tab*) 112 mcg PO QAM@0600 [facility] Last Admin: 07/28/19 05:44 Dose: 112 mcg Metoprolol Succinate (Toprol Xl Tab*) 100 mg PO BID [facility] Last Admin: 07/28/19 10:04 Dose: 100 mg Vital Signs - 8 hr 07/28/19 07/28/19 07:40 08:00 Temperature 97.3 F Pulse Rate 59 Respiratory 16 16 Rate Blood Pressure 113/63 (mmHg) O2 Sat by Pulse 100 Oximetry Oxygen Devices in Use Now: None Appearance: Comfortable, NAD Eyes: No Scleral Icterus Ears/Nose/Mouth/Throat: Clear Oropharnyx, Mucous Membranes Moist Neck: NL Appearance and Movements; NL JVP Respiratory: Symmetrical Chest Expansion and Respiratory Effort, Clear to Auscultation Cardiovascular: NL Sounds; No Murmurs; No JVD, RRR, No Edema Abdominal: NL Sounds; No Tenderness; No Distention Lymphatic: No Cervical Adenopathy Extremities: No Edema Skin: No Rash or Ulcers Neurological: Alert and Oriented x 3 Nutrition: Taking PO's, - - Fluid restriction Result Diagrams: 07/27/19 07:18 07/28/19 09:54 Additional Lab and Data: Laboratory Results - last 24 hr 07/28/19 07/28/19 07:10 09:54 Sodium 125 L Potassium TNP 4.1 Chloride 95 L Carbon Dioxide 21 L Anion Gap 9 BUN 20 Creatinine 0.82 Est GFR ( Amer) 81.4 Est GFR (Non-Af Amer) 67.2 BUN/Creatinine Ratio 24.4 H Glucose 88 Calcium 8.8 Magnesium TNP 1.8 L Microbiology and Other Data: Microbiology 07/24/19 12:03 Urine Culture - Final Urine No Growth (<1,000 CFU/mL) Assess/Plan/Problems-Billing Assessment: Ms. Gomez is a 78 yo F with PMH of SIADH, hypothyroidism, HTN, anxiety; who presented to the ED with c/o palpitations and was found to be in new onset atrial fibrillation with RVR. - Patient Problems (1) Hyponatremia Comment: - Na 125 today which is lower than previous days. Pt reports baseline is 129. - Salt tab which she takes at home once a day was held given HF, but echo resulted and HF likely related to afib therefore will restart salt tab - In addition patient was to be on 900 ml fluid restriction but nursing has patienton 1200 ml therefore instructed nursing to implement strict 1000 ml restriction. - Previously attributed to SIADH, but this is of unclear veracity as patient was on a thiazide diuretic at that time - Patient appears euvolemic today - Monitor closely, no apparent symptoms. (2) Atrial fibrillation with RVR Comment: - Rates controlled at rest. Can increase to 140s with ambulation - CHADS-VASc2 score is 4, Initiated on Eliquis, no signs of bleeding - Echo shows EF 50-55%, moderate MR. - Metoprolol succinate to 100 BID (increased to this dose yesterday) (3) Anemia Comment: - Recheck H&H tomorrow - Mild iron deficiency - Start ferrous sulfate - Consider IV Iron given HF in the future if no improvement. (4) Hypoxia Comment: - Resolved. Saturating well on room air - Suspected secondary to RVR and possible component of fluid overload - Appears Euvolemic (5) Hypertension Comment: - Denies dizziness with position changes today - Normotensive - Likely will not need to resume amlodipine or irbesartan at d/c d/t addition of BB - Continue metoprolol (6) Hypothyroidism Comment: - Will need recheck thyroid studies in 4 to 6 weeks - Elevated free T4 - Continue levothyroxine (dose reduced on admission) (7) Full code status Comment: (8) DVT prophylaxis Comment: - Eliquis Status and Disposition: Inpatient. Anticipate d/c home when medically stable. Attending: Leroy Tran
[2019-07-28] MEDS ORDERED: Al Hydrox/Mg Hydrox/Simet LIQ* 30 ML UDC PO PRN (17:26)
[2019-07-28] MEDS: Loperamide CAP* 2 MG PO PRN (23:49)
[2019-07-29] MEDS: Levothyroxine TAB* 112 MCG TAB PO SCH (05:43)
[2019-07-29 06:45] LABS: ABS Lymphocytes 2.2 10^3/ul (1.0-4.8); ABS Neutrophils 3.5 10^3/ul (1.5-7.7); Eosinophil % 0.4 %; Hematocrit 28 % (35-47); Hemoglobin 9.4 g/dL (12.0-16.0); Lymphocyte % 33.2 %; Mean Corpuscular HGB Conc 34 g/dL (31-36); Mean Corpuscular Hemoglobin 30 pg (27-31); Mean Corpuscular Volume 87 fL (80-97); Mean Platelet Volume 7.6 fL (7.4-10.4); Platelet Count 397 10^3/uL (150-450); Red Blood Count 3.14 10^6 /uL (3.70-4.87); Red Cell Distribution Width 15 % (10-15); White Blood Count 6.7 10^3/uL (3.5-10.8)
[2019-07-29 07:02] LABS: Calcium 8.8 mg/dL (8.6-10.3); EGFR African American 90.2 (>60); EGFR Non-African American 74.5 (>60); Magnesium 1.9 mg/dL (1.9-2.7)
[2019-07-29] MEDS: Ferrous Sulfate TAB* 325 MG PO SCH (08:17)
[2019-07-29] MEDS: Apixaban* 5 MG TAB PO SCH ×2 (08:17→21:33)
[2019-07-29] MEDS: Loperamide CAP* 2 MG PO PRN (08:17)
[2019-07-29] MEDS: Cyanocobalamin TAB* 500 MCG PO SCH (08:17)
[2019-07-29] MEDS: Metoprolol Succinate XL TAB* 100 MG PO SCH ×2 (08:17→21:33)
--- NOTE | 2019-07-29 15:30 | PN ---
Subjective Date of Service: 07/29/19 Interval History: Resting in bed on assessment. Reports she feels well today and would like to be discharge. Later in assessment reports she feels "dry" and her thinking is "a little fuzzy". Patient reports diarrhea yesterday which has improved and she attributed improved to Immodium. Reports she has had bowel issues including acid reflux since her knee operation in apr. Denies dizziness, sob, palpitations, cp, nausea, vomiting, abd pain, diaphoresis , confusion. Family History: Unchanged from Admission Social History: Unchanged from Admission Past Medical History: Unchanged from Admission Objective Active Medications: Acetaminophen (Tylenol Tab*) 650 mg PO Q4H PRN PRN Reason: PAIN - MILD Last Admin: 07/27/19 20:49 Dose: 650 mg Al Hydrox/Mg Hydrox/Simethicone (Maalox Plus*) 30 ml PO Q4H PRN PRN Reason: INDIGESTION Last Admin: 07/28/19 18:04 Dose: 30 ml Apixaban (Eliquis*) 5 mg PO BID [facility] Last Admin: 07/29/19 08:17 Dose: 5 mg Calcium Carbonate (Tums*) 500 mg PO Q4H PRN PRN Reason: INDIGESTION Last Admin: 07/24/19 21:19 Dose: 500 mg Cyanocobalamin (Vitamin B12 Tab*) 500 mcg PO DAILY [facility] Last Admin: 07/29/19 08:17 Dose: 500 mcg Ferrous Sulfate (Ferrous Sulfate Tab*) 325 mg PO DAILY [facility] Last Admin: 07/29/19 08:17 Dose: 325 mg Levothyroxine Sodium (Synthroid Tab*) 112 mcg PO QAM@0600 [facility] Last Admin: 07/29/19 05:43 Dose: 112 mcg Loperamide HCl (Imodium Cap*) 2 mg PO .SEE DIRECTIONS PRN PRN Reason: DIARRHEA Last Admin: 07/29/19 08:17 Dose: 2 mg Metoprolol Succinate (Toprol Xl Tab*) 100 mg PO BID [facility] Last Admin: 07/29/19 08:17 Dose: 100 mg Vital Signs - 8 hr 07/29/19 07/29/19 07/29/19 08:03 08:17 08:26 Temperature 98.3 F Pulse Rate 86 Respiratory 20 16 18 Rate Blood Pressure 107/58 (mmHg) O2 Sat by Pulse 97 Oximetry 07/29/19 07/29/19 11:08 11:27 Temperature 98.5 F Pulse Rate 81 Respiratory 18 18 Rate Blood Pressure 98/52 (mmHg) O2 Sat by Pulse 98 Oximetry Oxygen Devices in Use Now: None Appearance: Comfortable, NAD Eyes: No Scleral Icterus Ears/Nose/Mouth/Throat: Clear Oropharnyx, Mucous Membranes Moist Neck: NL Appearance and Movements; NL JVP Respiratory: Symmetrical Chest Expansion and Respiratory Effort, Clear to Auscultation Cardiovascular: NL Sounds; No Murmurs; No JVD, RRR, No Edema Abdominal: NL Sounds; No Tenderness; No Distention Lymphatic: No Cervical Adenopathy Extremities: No Edema Skin: No Rash or Ulcers Neurological: Alert and Oriented x 3 Nutrition: Taking PO's Result Diagrams: 07/29/19 06:11 07/29/19 06:11 Additional Lab and Data: Laboratory Results - last 24 hr 07/29/19 07/29/19 06:11 06:11 WBC 6.7 RBC 3.14 L Hgb 9.4 L Hct 28 L MCV 87 MCH 30 MCHC 34 RDW 15 Plt Count 397 MPV 7.6 Neut % (Auto) 51.4 Lymph % (Auto) 33.2 [place] % (Auto) 14.6 Eos % (Auto) 0.4 Baso % (Auto) 0.4 Absolute Neuts (auto) 3.5 Absolute Lymphs (auto) 2.2 Absolute Monos (auto) 1.0 H Absolute Eos (auto) 0.0 Absolute Basos (auto) 0.0 Absolute Nucleated RBC 0.0 Nucleated RBC % 0.0 Sodium 124 L Potassium 4.0 Chloride 93 L Carbon Dioxide 25 Anion Gap 6 BUN 18 Creatinine 0.75 Est GFR ( Amer) 90.2 Est GFR (Non-Af Amer) 74.5 BUN/Creatinine Ratio 24.0 H Glucose 86 Calcium 8.8 Magnesium 1.9 Microbiology and Other Data: Microbiology 07/24/19 12:03 Urine Culture - Final Urine No Growth (<1,000 CFU/mL) Assess/Plan/Problems-Billing Assessment: Ms. Gomez is a 78 yo F with PMH of SIADH, hypothyroidism, HTN, anxiety; who presented to the ED with c/o palpitations and was found to be in new onset atrial fibrillation with RVR. - Patient Problems (1) Hyponatremia Comment: - Sodium 1 gm ordered again today - Na 124 today which is lower than previous days. Pt reports baseline is 129. - Received Sodium 1 gm yesterday. Reports she use to be on 1gm tab BID until recently when PCP told her to only take one - Strict 1000 ml restriction. - Previously attributed to SIADH, but this is of unclear veracity as patient was on a thiazide diuretic at that time - Patient appears mildly hypovolemic today - Monitor closely, no apparent symptoms. (2) Atrial fibrillation with RVR Comment: - Rates controlled - CHADS-VASc2 score is 4, Initiated on Eliquis, no signs of bleeding - Echo shows EF 50-55%, moderate MR. - Metoprolol succinate to 100 BID (increased to this dose 07/27) (3) Anemia Comment: - H&H stable - Mild iron deficiency - Cont ferrous sulfate - Consider IV Iron given HF in the future if no improvement. (4) Hypoxia Comment: - Resolved. Saturating well on room air - Suspected secondary to RVR and possible component of fluid overload (5) Hypertension Comment: - Slightly hypotenisve today. Hypovolemia? - Denies dizziness with position changes today - Likely will not need to resume amlodipine or irbesartan at d/c d/t addition of BB - Continue metoprolol (6) Hypothyroidism Comment: - Will need recheck thyroid studies in 4 to 6 weeks - Elevated free T4 - Continue levothyroxine (dose reduced on admission) (7) Full code status Comment: (8) DVT prophylaxis Comment: - Eliquis Status and Disposition: Inpatient. Anticipate d/c home when medically stable. Attending: Leroy Tran
[2019-07-29] MEDS ORDERED: Sodium Chloride TAB* 1 GM PO ONE (17:51)
[2019-07-30] MEDS: Levothyroxine TAB* 112 MCG TAB PO SCH (05:45)
[2019-07-30 08:00] LABS: BUN/Creatinine Ratio 27.8 (8-20); Calcium 8.9 mg/dL (8.6-10.3); EGFR African American 84.9 (>60); EGFR Non-African American 70.2 (>60); Magnesium 1.8 mg/dL (1.9-2.7); Potassium 4.4 mmol/L (3.5-5.0)
[2019-07-30] MEDS: Cyanocobalamin TAB* 500 MCG PO SCH (09:59)
[2019-07-30] MEDS: Apixaban* 5 MG TAB PO SCH ×2 (09:59→20:52)
[2019-07-30] MEDS: Ferrous Sulfate TAB* 325 MG PO SCH (09:59)
[2019-07-30] MEDS: Metoprolol Succinate XL TAB* 100 MG PO SCH ×2 (10:00→20:52)
--- NOTE | 2019-07-30 15:15 | PN ---
Subjective Date of Service: 07/30/19 Interval History: Patient seen today, doing well. She is eager to go home. Her sodium is still low at 125. she denies excess water intake. so far she had 500 cc of fluid today. I did request from lab to run her serum and urine osmolarity today and urine lytes. results pending. I was able to visit with the patient and she clearly state that her fluid restriction here in the hospital is much more stricter than home. Reluctantly she agreed to stay one more day pending her repeat labs ordered and repeat chemistry in am. I am waiting for the added serum and urine osmo and urine lytes. Past Medical History: Unchanged from Admission Objective Active Medications: Acetaminophen (Tylenol Tab*) 650 mg PO Q4H PRN PRN Reason: PAIN - MILD Last Admin: 07/27/19 20:49 Dose: 650 mg Al Hydrox/Mg Hydrox/Simethicone (Maalox Plus*) 30 ml PO Q4H PRN PRN Reason: INDIGESTION Last Admin: 07/28/19 18:04 Dose: 30 ml Apixaban (Eliquis*) 5 mg PO BID [facility] Last Admin: 07/30/19 09:59 Dose: 5 mg Calcium Carbonate (Tums*) 500 mg PO Q4H PRN PRN Reason: INDIGESTION Last Admin: 07/24/19 21:19 Dose: 500 mg Cyanocobalamin (Vitamin B12 Tab*) 500 mcg PO DAILY [facility] Last Admin: 07/30/19 09:59 Dose: 500 mcg Ferrous Sulfate (Ferrous Sulfate Tab*) 325 mg PO DAILY [facility] Last Admin: 07/30/19 09:59 Dose: 325 mg Levothyroxine Sodium (Synthroid Tab*) 112 mcg PO QAM@0600 [facility] Last Admin: 07/30/19 05:45 Dose: 112 mcg Loperamide HCl (Imodium Cap*) 2 mg PO .SEE DIRECTIONS PRN PRN Reason: DIARRHEA Last Admin: 07/29/19 08:17 Dose: 2 mg Metoprolol Succinate (Toprol Xl Tab*) 100 mg PO BID [facility] Last Admin: 07/30/19 10:00 Dose: 100 mg Vital Signs - 8 hr 07/30/19 07/30/19 07:31 08:00 Temperature 97.4 F Pulse Rate 90 Respiratory 20 20 Rate Blood Pressure 114/58 (mmHg) O2 Sat by Pulse 99 Oximetry Oxygen Devices in Use Now: None Appearance: awake ,alert Eyes: No Scleral Icterus Ears/Nose/Mouth/Throat: NL Teeth, Lips, Gums, Mucous Membranes Moist Neck: NL Appearance and Movements; NL JVP, Trachea Midline Respiratory: Symmetrical Chest Expansion and Respiratory Effort, Clear to Auscultation Cardiovascular: NL Sounds; No Murmurs; No JVD, No Edema Abdominal: NL Sounds; No Tenderness; No Distention Extremities: No Edema Neurological: Alert and Oriented x 3 Result Diagrams: 07/29/19 06:11 07/30/19 07:33 Additional Lab and Data: Laboratory Results - last 24 hr 07/29/19 07/29/19 06:11 06:11 WBC 6.7 RBC 3.14 L Hgb 9.4 L Hct 28 L MCV 87 MCH 30 MCHC 34 RDW 15 Plt Count 397 MPV 7.6 Neut % (Auto) 51.4 Lymph % (Auto) 33.2 [place] % (Auto) 14.6 Eos % (Auto) 0.4 Baso % (Auto) 0.4 Absolute Neuts (auto) 3.5 Absolute Lymphs (auto) 2.2 Absolute Monos (auto) 1.0 H Absolute Eos (auto) 0.0 Absolute Basos (auto) 0.0 Absolute Nucleated RBC 0.0 Nucleated RBC % 0.0 Sodium 124 L Potassium 4.0 Chloride 93 L Carbon Dioxide 25 Anion Gap 6 BUN 18 Creatinine 0.75 Est GFR ( Amer) 90.2 Est GFR (Non-Af Amer) 74.5 BUN/Creatinine Ratio 24.0 H Glucose 86 Calcium 8.8 Magnesium 1.9 Microbiology and Other Data: Microbiology 07/24/19 12:03 Urine Culture - Final Urine No Growth (<1,000 CFU/mL) Assess/Plan/Problems-Billing Assessment: Ms. Gomez is a 78 yo F with PMH of SIADH, hypothyroidism, HTN, anxiety; who presented to the ED with c/o palpitations and was found to be in new onset atrial fibrillation with RVR. - Patient Problems (1) Hyponatremia Current Visit: Yes Status: Acute Code(s): E87.1 - HYPO-OSMOLALITY AND HYPONATREMIA SNOMED Code(s): 34150624 Comment: - S/p Sodium tablet. - Na+ 125 today minimal improvement. Pt reports baseline is 129. - Continue Strict 1000 ml restriction. - Previously attributed to SIADH, but this is of unclear - Patient appears eupovolemic today. I did add serum and urine osmo today, urine lytes today and will try to distinguish her etiology. - Monitor closely, no apparent symptoms. (2) Anemia Current Visit: Yes Status: Acute Code(s): D64.9 - ANEMIA, UNSPECIFIED SNOMED Code(s): 170643130 Comment: - secondary to iron deficiency anemia - Cont ferrous sulfate 325 mg daily (3) Atrial fibrillation with RVR Current Visit: Yes Status: Acute Code(s): I48.91 - UNSPECIFIED ATRIAL FIBRILLATION SNOMED Code(s): 732922759394560 Comment: - resolved. - [id number] score is 4, Initiated on Eliquis, no signs of bleeding - Echo shows EF 50-55%, moderate MR. - Metoprolol succinate to 100 BID (increased to this dose 07/27) (4) Status post total left knee replacement Current Visit: No Status: Acute Code(s): Z96.652 - PRESENCE OF LEFT ARTIFICIAL KNEE JOINT SNOMED Code(s): 2198637317146 Comment: - stable (5) Hypertension Current Visit: No Status: Chronic Code(s): I10 - ESSENTIAL (PRIMARY) HYPERTENSION SNOMED Code(s): 97238284 Comment: - BP stable. Denies dizziness today. - Likely will not need to resume amlodipine or irbesartan at d/c d/t addition of BB - Continue metoprolol (6) Hypothyroidism Current Visit: No Status: Chronic Code(s): E03.9 - HYPOTHYROIDISM, UNSPECIFIED SNOMED Code(s): 56955701 Comment: - Will need recheck thyroid studies in 4 to 6 weeks - Elevated free T4 which may have exacerbated her symptoms of afib - her dose has been decrease to 112 mcg from 125 mcg. (dose reduced on admission) (7) DVT prophylaxis Current Visit: No Status: Acute Code(s): Z29.9 - ENCOUNTER FOR PROPHYLACTIC MEASURES, UNSPECIFIED SNOMED Code(s): 177178463 Comment: - Eliquis Status and Disposition: Inpatient. Anticipate d/c home when medically stable.
[2019-07-30 15:45] LABS: Urine Potassium Concentration 33.9 mmol/L
[2019-07-31] MEDS: Levothyroxine TAB* 112 MCG TAB PO SCH (06:14)
[2019-07-31 06:39] LABS: BUN/Creatinine Ratio 25.7 (8-20); Calcium 8.9 mg/dL (8.6-10.3); EGFR African American 91.6 (>60); EGFR Non-African American 75.7 (>60)
[2019-07-31 06:56] LABS: Urine Potassium Concentration 21.7 mmol/L
[2019-07-31 07:36] LABS: TSH (Thyroid Stimulating Horm) 1.1 mcIU/mL (0.34-5.60)
[2019-07-31] MEDS: Ferrous Sulfate TAB* 325 MG PO SCH (07:39)
[2019-07-31] MEDS: Metoprolol Succinate XL TAB* 100 MG PO SCH (07:39)
[2019-07-31] MEDS: Apixaban* 5 MG TAB PO SCH (07:39)
[2019-07-31] MEDS: Cyanocobalamin TAB* 500 MCG PO SCH (07:39)
[2019-07-31 08:25] VITALS: BP 115/62
--- NOTE | 2019-08-01 01:13 | DS ---
CC: Dr. Jeanine Wells; Dr. Maria Brian; Dr. Samson Torres * DISCHARGE SUMMARY: DATE OF ADMISSION: 07/24/19 DATE OF DISCHARGE: PRIMARY CARE PROVIDER: Dr. Jeanine Wells. NEWLY REFERRED [employer] BUSINESS OBJECTS DEVELOPER: Dr. Maria Brian, first appointment scheduled for at 2:20 p.m. LABORATORY CLERK: Dr. Samson Torres, first appointment scheduled for 08/09/19 at 8 a.m. FINAL DISCHARGE DIAGNOSES: 1. Hyponatremia, most likely secondary to polydipsia versus hypovolemia less likely. 2. Atrial fibrillation with rapid ventricular rate, newly diagnosed. 3. Hypothyroidism, was slightly overly replaced. Her thyroid medication was adjusted. 4. Hypertension. 5. Anemia. HOSPITAL COURSE: The patient presented to [facility] on 07/24/19 to the emergency room with a chief complaint of palpitations, her heart going very fast. The patient stated that she is fairly active. 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 Given her palpitations and also her severe lightheadedness and shortness of breath, she came in to the ER to be evaluated. In the emergency room, she was found to have rapid heart rate with underlying atrial fibrillation and her pulse was as high as 154, 150s, 164. This was managed with oral metoprolol and she has been in underlying AFib and the rhythm control and her blood pressure medications were altered and managed and she was placed on Toprol 100 mg b.i.d. and discontinued her home medications that included irbesartan and amlodipine to accommodate blood pressure to allow metoprolol being given. Her workup included troponin, which was negative on admission. Echocardiogram, which was fairly significant for normal ejection fraction, which is preserved, 50%-55%, moderate mitral regurg, otherwise no significant abnormality. During the hospitalization, it was noted that her sodium actually decreased with the normal saline administration from 130 down to 125 and then 124. I was consulted and I was asked to follow up on the patient starting on for which I saw and evaluated the patient as initial encounter on , and after consulting with my nurse practitioner, I did recommend to place her on a very strict fluid. Sent repeat electrolyte and her urine and serum osmolality were significant for hypoosmolar, hyponatremic, hypochloremic with fairly decent to slightly concentrated urine based on urine osmolality; however , her urine electrolytes were quite disorganized simply due to the fact that at one time she was taking sodium tablet. Therefore, after placing her on a strict fluid restriction for at least 36 to 48 hours, her sodium started to correct itself and it was back up to 128 today with still normal renal function , adequate GFR stable throughout and actually slightly improved. Therefore, I deemed that her hyponatremia is probably due to polydipsia versus SIADH. I did consult with Nephrology and I did ask her to follow up with Nephrology. I was able to make an appointment for the patient to follow up with Dr. Maria Brian on 08/07/19 at 2:20 p.m. Also, regarding her AFib, her CHADS2-VASc score is 4. We initiated Eliquis 5 mg b.i.d. and I kept her on Toprol-XL 100 b.i.d. and I decreased her levothyroxine from 125 down to 112, which may have played a role to her hypothyroidism. Therefore at this time, I deemed the patient stable for discharge with followup with primary care, Cardiology, and Nephrology. PHYSICAL EXAMINATION: Temperature 97.6, pulse 76, respiratory rate 20, satting 99%. General: She is awake, alert, oriented, no distress. Head and Neck: Normocephalic, atraumatic. Supple. Lungs: Clear to auscultation. Cardiovascular: Irregularly irregular, but rate controlled. Extremities: No pedal edema. Moist mucous membranes. Clinically, she appeared to be euvolemic. DISCHARGE MEDICATIONS: The patient to follow up and continue her medications as prescribed as follows: 1. Eliquis 5 mg b.i.d. 2. B12 500 mcg daily. 3. Iron 325 daily. 4. Levoxyl, decreased from 125 down to 112. 5. Metoprolol, new prescription provided 100 mg b.i.d., extended release. 6. Pantoprazole 40 mg daily, now that she is going to be on Eliquis. 7. Resume calcium with vitamin D. 8. Tylenol p.r.n. Medications stopped were: 1. Levothyroxine 125 discontinued and she is on 112 now. 2. Discontinued sodium tablet. 3. Avapro 150 daily. 4. Amlodipine 10 mg every morning. DISCHARGE INSTRUCTIONS AND FOLLOWUP: 1. For the hyponatremia, I instructed the patient to please restrict to 1500 cc per 24 hours. Avoid excess fluids. No longer needed to take her sodium tablet unless instructed otherwise by the adjunct instructor in economics and followup appointment with the adjunct instructor in economics was made with Dr. Maria Brian on 08/07/19 at 2:20 p.m. 2. For the atrial fibrillation with RVR, CHADS2-VASc score 4, initiated on Eliquis. Echo was 55%, moderate mitral regurg and initiated metoprolol 100 b.i.d. I was able to refer her for an outpatient appointment with Dr. Torres for further workup. She may require further noninvasive cardiac testing. 3. For her hypothyroidism, her thyroid medications were decreased from 125 down to 112. I recommended to have a repeat TSH, free T4 in 2 to 4 weeks. 4. Take all medications as prescribed. If she developed any symptoms of chest pain, shortness of breath, to return to the emergency room immediately or seek immediate medical attention. DISCHARGE DISPOSITION: Home. DISCHARGE CONDITION: Stable. [id number]/CPS #: [id number] MTDD
== END 2019-07-31 15:00 | disposition home or self-care (01) | DRG 641 ==
LOC: ED 07:30 → MEDTELE 11:20
PROVIDERS: ADMIT Hospitalist; ATTEND Internal Medicine
DX: E87.1 Hypo-osmolality and hyponatremia (principal); R63.1 Polydipsia; I48.91 Unspecified atrial fibrillation; E03.9 Hypothyroidism, unspecified; I10 Essential (primary) hypertension; D64.9 Anemia, unspecified; R09.02 Hypoxemia; Z96.653 Presence of artificial knee joint, bilateral; Z79.01 Long term (current) use of anticoagulants; Z79.899 Other long term (current) drug therapy; Z82.49 Family history of ischemic heart disease and other diseases of the circulatory system; Z80.0 Family history of malignant neoplasm of digestive organs
CPT/HCPCS: 36415; 71045; 71275; 80048; 80053; 81003; 81015; 82272; 82436; 82533; 82607; 82728; 82746; 83540; 83550; 83605; 83735; 83880; 83930; 83935; 84133; 84300; 84439; 84443; 84484; 85025; 85379; 87086; 93005; 93306; 96365; 99284; A9270-GY; J1940; J3475; Q9967